=== PATIENT | male | born 1935 | race Caucasian/White ===

== ENCOUNTER 2017-09-02 11:41 | Outpatient (RCR) | payer MEDICARE, SELFPAY ==
[2017-09-02 12:32] LABS: International Normalized Ratio 1.3; Prothrombin Time (Protime)PT. 15.8 SECONDS (11.7-14.9)
== END 2017-09-19 23:59 ==
LOC: LAB 11:41
PROVIDERS: Family Provider Nurse Practitioner; PCP Nurse Practitioner; Visit Provider Internal Medicine Cardiovascular Disease
DX: I48.1 Persistent atrial fibrillation (principal); E11.22 Type 2 diabetes mellitus with diabetic chronic kidney disease; N18.3 Chronic kidney disease, stage 3 (moderate)
CPT/HCPCS: 36415; 80069; 82043; 82570; 85027; 85610

== ENCOUNTER → 2018-02-08 12:21 | Outpatient (CLI) | payer MEDICARE, SELFPAY ==
[2018-02-08 13:09] LABS: Anion Gap 6 (5-15); BUN 42 mg/dL (7-18); BUN/Creat Ratio 22.5 RATIO (10-20); Calcium,Total 8.6 mg/dL (8.5-10.1); Chloride 104 mmol/L (98-107); Creatinine, Serum 1.87 mg/dL (0.70-1.30); EST Glomerular Filtration Rate 37 mL/min (>60); Est Glom Filt Rate - Afr Amer 45 mL/min (>60); Glucose 278 mg/dL (74-106); Potassium 4.6 mmol/L (3.5-5.1); Sodium Level 139 mmol/L (136-145)
== END ==
PROVIDERS: Visit Provider Internal Medicine
DX: E87.5 Hyperkalemia (principal)
CPT/HCPCS: 80048

== ENCOUNTER → 2018-02-15 13:56 | Outpatient (CLI) | payer MEDICARE, SELFPAY ==
--- NOTE | 2018-02-15 14:01 | CDU_ITS ---
Reason For Study: carotid stenosis Rt. Velocities/BP Lt. Velocities/BP Prox CCA 106/18.1 cm/sec. Prox CCA 106/30.6 cm/sec. Mid CCA 128/28.3 cm/sec. Mid CCA 95.1/25.9 cm/sec. Dist CCA 102/21.2 cm/sec. Dist CCA 105/27.5 cm/sec. Prox ICA 165/24.2 cm/sec. Prox ICA 121/44.2 cm/sec. Mid ICA 107/25.5 cm/sec. Mid ICA 118/34.4 cm/sec. Dist ICA 99.2/33.4 cm/sec. Dist ICA 105/30.7 cm/sec. Rt. ICA/CCA = 1.3. Lt. ICA/CCA = 1.3. Prox ECA 161/14.0 cm/sec. Prox ECA 319/34.6 cm/sec. Rt. Vert. 48.7/11.4 cm/sec. Lt. Vert. 49.5/14.9 cm/sec. Right Extracranial There is homogeneous, smooth atherosclerotic plaque noted in the right common carotid artery. There is homogeneous, smooth atherosclerotic plaque noted in the right internal carotid artery. There is homogeneous, smooth atherosclerotic plaque noted in the right external carotid artery. Antegrade flow is noted in the right vertebral artery. Left Extracranial There is heterogeneous, irregular atherosclerotic plaque noted in the left common carotid artery. There is heterogeneous, irregular atherosclerotic plaque noted in the left internal carotid artery. There is heterogeneous, irregular atherosclerotic plaque noted in the left external carotid artery. Antegrade flow is noted in the left vertebral artery. Procedure Carotid Duplex 09276. The exam was diagnostic. Exam performed in department. Interpretation Summary Moderate (50-69%) stenosis right extracranial internal carotid. Mild (<50%) stenosis left extracranial internal carotid. However, acoustic shadowing obscures ryan-scale visualization of a portion of the proximal left internal carotid artery lumen. Therefore, the degree of stenosis may exceed that which is indicated by velocity critera alone, and clinical correation is advised. Flow within the vertebral arteries is antegrade bilaterally. Elevated velocities within the left external carotid artery are suggestive of stenosis. Ordering Physician: Nata Palm Performed By: Roc Herr RVT
== END ==
PROVIDERS: Family Provider Internal Medicine; PCP Internal Medicine; Visit Provider Internal Medicine
DX: I65.23 Occlusion and stenosis of bilateral carotid arteries (principal)
CPT/HCPCS: 93880

== ENCOUNTER → 2018-04-08 16:33 | Outpatient (CLI) | payer MEDICARE, SELFPAY ==
[2018-04-08 17:31] LABS: Anion Gap 5 (5-15); BUN 31 mg/dL (7-18); BUN/Creat Ratio 19.9 RATIO (10-20); Calcium,Total 8.9 mg/dL (8.5-10.1); Chloride 109 mmol/L (98-107); Creatinine, Serum 1.56 mg/dL (0.70-1.30); EST Glomerular Filtration Rate 46 mL/min (>60); Est Glom Filt Rate - Afr Amer 55 mL/min (>60); Glucose 83 mg/dL (74-106); Potassium 4.4 mmol/L (3.5-5.1); Sodium Level 141 mmol/L (136-145)
== END ==
PROVIDERS: Family Provider Internal Medicine; PCP Internal Medicine; Visit Provider Internal Medicine Nephrology
DX: N18.3 Chronic kidney disease, stage 3 (moderate) (principal)
CPT/HCPCS: 36415; 80048

== ENCOUNTER → 2018-12-20 12:44 | Outpatient (CLI) | payer MEDICARE, SELFPAY ==
[2018-12-20 13:19] LABS: CPK Total, Creatine Kinase 143 U/L (39-308)
[2018-12-21 16:07] LABS: Creatine Kinase MB 0 % (0-3); Creatine Kinase MM 96 % (97-100); Creatine Kinase,Total,Serum 144 U/L (24-204); Macro II 0 % (Not Observed)
[2018-12-22 14:11] LABS: Creatine Kinase BB 0 % (0); Macro I 4 % (Not Observed)
== END ==
PROVIDERS: Family Provider Internal Medicine; PCP Internal Medicine; Referring Provider Internal Medicine; Visit Provider Internal Medicine
DX: R06.09 Other forms of dyspnea (principal)
CPT/HCPCS: 82550; 82552; 84484

== ENCOUNTER → 2019-01-05 10:44 | Outpatient (CLI) | payer MEDICARE, SELFPAY ==
--- NOTE | 2019-01-05 10:47 | ECHOD_ITS ---
Reason For Study: ACTIVITY INTOLERANCE Procedure This was a 2D Doppler, Color Flow transthoracic echocardiogram. Exam performed in department. Left Ventricle Normal size and thickness. The estimated ejection fraction is 65 %. Unable to assess diastolic dysfunction due to arrhythmia. No regional wall motion abnormalities noted. Right Ventricle Severely dilated right ventricle. Moderate global right ventricular systolic dysfunction. Atria The left atrium is severely enlarged. The right atrium is severely enlarged. Normal atrial septum. Mitral Valve The mitral valve is structurally normal. No prolapse or stenosis seen. Tricuspid Valve Normal tricuspid valve. Moderately severe (3+) tricuspid valve insufficiency. Right ventricular systolic pressure estimated to be 65 mmHg. Severe pulmonary hypertension. Aortic Valve Trisinus/trileaflet aortic valve. Mild focal aortic valve thickening. Pulmonic Valve Normal pulmonic valve. Great Vessels Normal aortic root. Normal arch. The inferior vena cava is dilated. No collapse of the inferior vena cava. Pericardium/Pleural No pericardial effusion. Medication Definity deferred due to increased PAP. MMode/2D Measurements & Calculations LVIDd: 4.2 cm IVSd: 1.2 cm Ao root diam: 3.5 cm LVIDs: 2.6 cm LVPWd: 1.1 cm RVDd: 4.4 cm FS: 38.8 % LAV(MOD-bp): 80.6 ml LVAd ap4: 26.6 cm2 SV(MOD-sp4): 42.6 ml LAV(MOD-bp) Indexed: 39.0 ml/m2 EDV(MOD-sp4): 83.9 ml LAV(MOD-sp2): 79.7 ml EDV(sp4-el): 85.5 ml LAV(MOD-sp4): 79.0 ml LVAs ap4: 17.6 cm2 ESV(MOD-sp4): 41.3 ml ESV(sp4-el): 41.0 ml EF(MOD-sp4): 50.8 % EF(sp4-el): 52.0 % SV(sp4-el): 44.5 ml LA A4 area: 25.9 cm2 LA dimension(2D): 4.9 cm RA A4 area: 22.0 cm2 Doppler Measurements & Calculations MV E max may: 101.1 cm/sec Ao V2 max: 152.8 cm/sec LV V1 max: 80.6 cm/sec Ao max P.5 mmHg LV V1 max P.6 mmHg PA V2 max: 90.8 cm/sec PI end-d may: 102.9 cm/sec TR max may: 352.2 cm/sec TR max P.8 mmHg Interpretation Summary The estimated ejection fraction is 65 %. Unable to assess diastolic dysfunction due to arrhythmia. Severely dilated right ventricle. Moderate global right ventricular systolic dysfunction. The left atrium is severely enlarged. The right atrium is severely enlarged. Moderately severe (3+) tricuspid valve insufficiency. Right ventricular systolic pressure estimated to be 65 mmHg. Severe pulmonary hypertension. The inferior vena cava is dilated Compared to echo report dated 09/02/2016, LV function has remained the same, but RVSP has increased from 41 to 65 mm Hg. Pt appears to be in atrial fibrillation. Ordering Physician: Nata Palm Referring Physician: Nata Palm Performed By: Alexandra Davis RDCS
== END ==
PROVIDERS: Family Provider Internal Medicine; PCP Internal Medicine; Referring Provider Internal Medicine; Visit Provider Internal Medicine
DX: R68.89 Other general symptoms and signs (principal)
CPT/HCPCS: 93306

== ENCOUNTER 2019-01-12 15:38 | Outpatient (RCR) | payer MEDICARE, SELFPAY ==
[2019-01-12 13:51] VITALS: BMI 29.7
[2019-01-12 16:44] LABS: AST(SGOT) 23 U/L (15-37); Alanine Aminotransfer ALT/SGPT 31 U/L (16-61); Albumin, Serum 3.7 g/dL (3.2-5.0); Alkaline Phosphatase 99 U/L (45-117); Bilirubin, Direct 0.27 mg/dL (0.00-0.30); Cholesterol 125 mg/dL (200); Globulin 4.3 g/dL (2.2-4.2); High Density Lipoprotein 40 mg/dL; Triglycerides 150 mg/dL; Very Low Density Lipoprotein 30 mg/dL (5-40)
[2019-01-12 17:23] LABS: International Normalized Ratio 1.9; Prothrombin Time (Protime)PT. 21.3 SECONDS (11.7-14.9)
== END 2019-01-17 16:00 | disposition home or self-care (01) ==
LOC: LAB 15:38
PROVIDERS: Family Provider Internal Medicine; PCP Internal Medicine; Referring Provider Internal Medicine Cardiovascular Disease; Visit Provider Internal Medicine Cardiovascular Disease
DX: R00.1 Bradycardia, unspecified (principal); E78.5 Hyperlipidemia, unspecified; I25.10 Atherosclerotic heart disease of native coronary artery without angina pectoris; I48.0 Paroxysmal atrial fibrillation; I25.5 Ischemic cardiomyopathy
CPT/HCPCS: 36415; 80061; 80076; 85610

== ENCOUNTER → 2019-01-24 | Outpatient (CLI) | payer MEDICARE, SELFPAY ==
[2019-01-12 13:51] VITALS: BMI 29.7
--- NOTE | 2019-01-24 13:46 | CDU_ITS ---
Reason For Study: TIA Rt. Velocities/BP Lt. Velocities/BP Prox CCA 130.1/22.6 cm/sec. Prox CCA 104.8/22.5 cm/sec. Mid CCA 123.6/16 cm/sec. Mid CCA 109.7/20 cm/sec. Dist CCA 125.8/13.8 cm/sec. Dist CCA 91.2/15.1 cm/sec. Prox ICA 152.1/18.2 cm/sec. Prox ICA 148.5/29.8 cm/sec. Mid ICA 132.3/31.4 cm/sec. Mid ICA 121.1/26.1 cm/sec. Dist ICA 103.8/27 cm/sec. Dist ICA 122.9/20.6 cm/sec. Rt. ICA/CCA = 1.2. Lt. ICA/CCA = 1.4. Prox ECA 182.8/11.6 cm/sec. Prox ECA 416.9/48.2 cm/sec. Rt. Vert. 47.6/10.2 cm/sec. Lt. Vert. 47.6/12.4 cm/sec. Right Extracranial There is homogeneous, smooth atherosclerotic plaque noted in the right common carotid artery. There is homogeneous, smooth atherosclerotic plaque noted in the right internal carotid artery. There is homogeneous, smooth atherosclerotic plaque noted in the right external carotid artery. Antegrade flow is noted in the right vertebral artery. Left Extracranial There is heterogeneous, irregular atherosclerotic plaque noted in the left common carotid artery. There is heterogeneous, irregular atherosclerotic plaque noted in the left internal carotid artery. The atherosclerotic plaque causes acoustic shadowing. There is heterogeneous, irregular atherosclerotic plaque noted in the left external carotid artery. Antegrade flow is noted in the left vertebral artery. Procedure Carotid Duplex [id number]. Exam performed in department. Interpretation Summary Moderate (50-69%) stenosis right extracranial internal carotid. Moderate (50-69%) stenosis left extracranial internal carotid. Flow within the vertebral arteries is antegrade bilaterally. Ordering Physician: Emmett Hopkins Referring Physician: Nata Palm M.D. Performed By: Delia Coombs RVT
== END | disposition home or self-care (01) ==
LOC: CVS 13:44
PROVIDERS: Family Provider Internal Medicine; PCP Internal Medicine; Referring Provider Internal Medicine Cardiovascular Disease; Visit Provider Internal Medicine Cardiovascular Disease
DX: I77.9 Disorder of arteries and arterioles, unspecified (principal); R42 Dizziness and giddiness; R41.0 Disorientation, unspecified
CPT/HCPCS: 93880

== ENCOUNTER → 2019-06-01 12:38 | Outpatient (CLI) | payer MEDICARE, SELFPAY ==
[2019-05-16 14:08] VITALS: BMI 30.4
--- NOTE | 2019-06-01 12:40 | STEWCON_ITS ---
Reason For Study: CHF Stress Results Protocol: Dobutatmine Stress Echo Maximum Predicted HR: 138 bpm Target HR: 117 bpm % Maximum Predicted HR: 102 % DurationHeart Rate Stage (mm:ss) (bpm) BP Dose Comment BASELINE 92 132/68 DILUTED DEFINITY 4 CC USED DSE- 10 MCG 3:37 99 132/8410.00NO SX DSE- 20 MCG 1:36 141 140/8220.00NO SX RECOVERY 98 130/76 NO COMPLAINTS Stress Duration: 5:13 mm:ss Maximum Stress HR: 141 bpm Baseline Echocardiogram Findings The estimated ejection fraction is 65 %. Stress Echo Wall motion Data Resting WM Intermediate WM Stress WM Resting Wall Motion Wall Motion Stress No regional wall motion No regional wall motion abnormalities noted. abnormalities noted. EKG Data Atrial fibrillation with controlled ventricular response. PVCs. The patient was titrated from 10 mcg to a maximum of 20 mcg of dobutamine during the stress. The maximum heart rate attained was 136 beats per minute. This was 96% of maximum predicted heart rate. During dobutamine infusion, there were no ST or T wave changes noted to suggest ischemia. No clinical angina was noted. Doppler Measurements & Calculations TR max may: 301.8 cm/sec TR max P.4 mmHg Interpretation Summary The estimated ejection fraction is 65 %. Normal, adequate, dobutamine echocardiogram. Negative for ischemia by EKG and echocardiographic criteria. No anginal symptoms noted. Mild PVCs noted during infusion and into recovery which is a nonspecific finding. Appropriate blood pressure response to dobutamine. Final LVEF is 75%. Test terminated due to the attainment of target heart rate. Decreased sensitivity due to poor echo windows requiring Definity enhancing agent. No complications. The study was technically difficult. Contrast injection was performed. Ordering Physician: Emmett Hopkins Referring Physician: Emmett Hopkins Performed By: Huong Wen RDCS
== END ==
PROVIDERS: Family Provider Internal Medicine; PCP Internal Medicine; Referring Provider Internal Medicine Cardiovascular Disease; Visit Provider Internal Medicine Cardiovascular Disease
DX: I25.10 Atherosclerotic heart disease of native coronary artery without angina pectoris (principal); R00.1 Bradycardia, unspecified; I25.5 Ischemic cardiomyopathy
CPT/HCPCS: 93017; 93350; J7040; Q9957; A4216; C8928

== ENCOUNTER 2019-07-03 15:01 | Emergency (ER) | payer MEDICARE, SELFPAY ==
[2019-05-16 14:08] VITALS: BMI 30.4
[2019-07-03 15:02] VITALS: BP 122/82; PULSE 49; RESP 16; TEMP 36.4; O2SAT 97; BMI 29.5
--- NOTE | 2019-07-03 15:19 | EKG12_ITS ---
Test Reason : FALL Blood Pressure : / mmHG Vent. Rate : 097 BPM Atrial Rate : 053 BPM P-R Int : 000 ms QRS Dur : 084 ms QT Int : 372 ms P-R-T Axes : 000 018 001 degrees QTc Int : 472 ms Atrial fibrillation with frequent ventricular-paced complexes and with premature ventricular or aberr antly conducted complexes in a Bigeminal pattern Abnormal ECG Confirmed by BÁRBARA ZIMMERMAN ([id number]), manuscript editor DEV MARKS ([id number]) on 07/07/2019 10:24:39 AM Referred By: AAMIR Confirmed By:BÁRBARA ZIMMERMAN
--- NOTE | 2019-07-03 15:21 | ED.DCSUM_ITS ---
History of Present Illness Chief Complaint: Fall Informant: Patient, Family Onset: Days Current Severity: Mild Maximum Severity: Moderate Narrative: Patient presents after having 2 falls in the last 5 days. Last he fell at a local store. He states the floor was wet and he slipped and fell. He had a small abrasion across his nasal bridge. The following day he was out working in his yard. He leaned over to pick something up and fell forward. He reportedly laid on the ground for about an hour and a half until his neighbor was able to help him up. He presents with pain to the left lower ribs and left upper quadrant of his abdomen. He states pain is worse with movement, cough, or deep breath. Patient is also diabetic and is on oral anti-glycemic's. He reports his blood sugars been over 500 last couple days as well. Past Medical History - Allergies and Home Meds Allergies/Adverse Reactions: Allergies No Known Allergies Allergy (Verified 07/03/19 15:02) Primary Care Physician: Nata Palm DO [Primary Care Provider] - Prior records reviewed: Yes Past Medical History: - - Reviewed Surgical History: - - Right carotid endarterectomy, coronary artery stent placement, pacemaker Lives: Alone Smoking Status: Former smoker - Family History Maternal Family History: Family History (Last Reviewed 05/13/19 @ 16:57 by Moira Starr) Mother CAD (coronary artery disease) Father Cancer Sister Multiple sclerosis CVA (cerebral vascular accident) Family History: Reports: - - Abdominal aortic aneurysm Paternal Family History: Family History (Last Reviewed 05/13/19 @ 16:57 by Moira Starr) Mother CAD (coronary artery disease) Father Cancer Sister Multiple sclerosis CVA (cerebral vascular accident) Family History: Reports: Cancer - Lung cancer Review of Systems General: Denies: Chills, Fever Eyes: Denies: Visual changes - bilaterally ENT: Denies: Bilateral ear pain Cardiovascular: Reports: Chest pain - Left chest wall Respiratory: Denies: Dyspnea, Cough Gastrointestinal: Reports: Abdominal pain - Left upper quadrant. Denies: Nausea, Vomiting, Diarrhea Genitourinary: Denies: Dysuria Musculoskeletal: Denies: Neck pain, Back pain Skin: Reports: Abrasions - Nasal bridge Neurological: Denies: Headache Endocrine: Reports: Polyuria Physical Exam Vital Signs/Narrative: Vital Signs Temp Pulse Resp BP Pulse Ox 07/03/19 15:02 97.5 F L 49 L 16 122/82 H 97 Inital Vital Signs reviewed: Yes General: Well nourished, Well developed Head: Normocephalic Eyes: EOMI ENT: Moist mucous membranes, - - Superficial abrasion across nasal bridge. Cardiovascular: Regular rate, Regular rhythm Respiratory: No distress, CTA bilaterally, Chest tenderness - Mild left lower rib tenderness to palpation. No crepitus. Abdomen: Soft, Normal bowel sounds, Tender - Mild left upper quadrant tenderness. No ecchymosis. No guarding or rebound.. Negative for: Guarding, Rebound tenderness Extremities: Nontender Skin: Normal color - Except abrasion as above Neurological: Alert, Oriented x3, Normal Strength, Normal Sensation Psychological: Normal affect Diagnostic/Tx/Re-eval Impressions Ribs w/Chest X-Ray 07/03/19 15:54 IMPRESSION: RIBS: Normal x-ray examination of the ribs. CHEST: No acute cardiopulmonary process. Electronically Signed: Betsy Arriaza MD at 16:28 EDT Tel , Service support , 07/03/19 15:54 Ribs Uni Min 3V w/PA Chest [RAD] Stat Laboratory Results 07/03/19 07/03/19 07/03/19 15:30 15:30 15:30 WBC 7.4 RBC 4.30 L Hgb 13.3 Hct 40.5 MCV 94.2 H MCH 30.9 MCHC 32.8 RDW Std Deviation 48.1 H RDW Coeff of Markie 14.0 Plt Count 102 L MPV 12.4 H Immature Gran % (Auto) 1.100 H Neut % (Auto) 69.1 Lymph % (Auto) 19.2 Sullivan % (Auto) 8.5 Eos % (Auto) 1.6 Baso % (Auto) 0.5 Absolute Neuts (auto) 5.1 Absolute Lymphs (auto) 1.43 Nucleated RBC % 0 PT INR Sodium 134 L Potassium 5.4 H Chloride 102 Carbon Dioxide 26.0 Anion Gap 6 BUN 83 H Creatinine 2.31 H Estim Creat Clear Calc 25.46 Est GFR (MDRD) Af Amer 35 L Est GFR (MDRD) Non-Af 29 L BUN/Creatinine Ratio 35.9 H Glucose 470 H* Calcium 9.1 Total Creatine Kinase 79 Urine Color Urine Clarity Urine pH Ur Specific [place] Urine Protein Urine Glucose (UA) Urine Ketones Urine Occult Blood Urine Nitrite Urine Bilirubin Urine Urobilinogen Ur Leukocyte Esterase Urine RBC Urine WBC Ur Squamous Epith Cells Urine Bacteria Urine Mucus Acetone Level 07/03/19 07/03/19 07/03/19 15:30 15:30 16:50 WBC RBC Hgb Hct MCV MCH MCHC RDW Std Deviation RDW Coeff of Markie Plt Count MPV Immature Gran % (Auto) Neut % (Auto) Lymph % (Auto) Sullivan % (Auto) Eos % (Auto) Baso % (Auto) Absolute Neuts (auto) Absolute Lymphs (auto) Nucleated RBC % PT 15.1 H INR 1.2 Sodium Potassium Chloride Carbon Dioxide Anion Gap BUN Creatinine Estim Creat Clear Calc Est GFR (MDRD) Af Amer Est GFR (MDRD) Non-Af BUN/Creatinine Ratio Glucose Calcium Total Creatine Kinase Urine Color Yellow Urine Clarity Sl. Cloudy Urine pH 6.0 Ur Specific [place] 1.010 Urine Protein Negative Urine Glucose (UA) 1000 H Urine Ketones Negative Urine Occult Blood Negative Urine Nitrite Negative Urine Bilirubin Negative Urine Urobilinogen Normal Ur Leukocyte Esterase 500 H Urine RBC 0 SEEN Urine WBC 10-25 SEEN Ur Squamous Epith Cells 0-5 SEEN Urine Bacteria 0 SEEN Urine Mucus 0 SEEN Acetone Level NEGATIVE - EKG Initial EKG Interpretation: Atrial Fibrillation - A. fib with frequent PVCs, in and out of a bigeminy pattern. - Medical Decision Making Patient was given IV fluids in the emergency room. Blood sugar does return elevated. He does not have evidence of DKA. Rib series do not reveal rib fracture. Test results are discussed with the patient. The medication list that we have in the computer is not able to be confirmed by the patient or family. We have given him subcu insulin at this time, 8 units. Repeat blood sugar will be checked in 1/2-hour. I spoke with Dr. hebert, on-call for Dr. Palm. She advises the patient to take his meds tonight, but called the office to be seen either tomorrow or the following day as he will need to have his eve betes medications adjusted. This has been explained to the family. Social work is meeting with him now to help ensure they have rides to the doctor's appointment. ED Disposition - Plan for ED Patient: Disposition: Home or Assisted Living Diagnosis: Fall, Rib contusion, Hyperglycemia Instructions: FALL, Mechanical, Rib Contusion, ED Diabetic Hyperglycemia Referrals: Nata Palm DO [Primary Care Provider] - 1 Day Additional Instructions: You need to see your doctor tomorrow or Wednesday. Call tomorrow morning to make an appointment - you will need to have your diabetes medications adjusted.
[2019-07-03 15:28] VITALS: BP 135/21; PULSE 79; RESP 17; O2SAT 95
[2019-07-03] MEDS: 0.9% Normal Saline 1,000 ML 150 ML IV (15:44)
[2019-07-03 15:50] LABS: Absolute Lymphocyte Count 1.43 X10^3/uL (0.83-4.51); Absolute Neutrophil Count 5.1 X10^3/uL (2.0-7.7); Basophil# 0.04 X10^3/uL; Basophil% 0.5 % (0-1); Eosinophil# 0.12 X10^3/uL; Eosinophils% 1.6 % (0-5); Hematocrit 40.5 % (40-54); Hemoglobin 13.3 g/dL (13.0-16.5); Lymphocyte # 1.43 X10^3/ul (4.0); Lymphocyte % 19.2 % (19-41); Mean Corp Hgb Conc 32.8 g/dL (32-36); Mean Corpuscular Hgb 30.9 pg (27.0-32.0); Mean Corpuscular Volume 94.2 fL (80-94); Mean Platelet Vol. 12.4 fl (6.2-12.0); Monocyte# 0.63 X10^3/uL; Monocyte% 8.5 % (0-10); NRBC Flagged by Analyzer 0 % (0-5); Neutrophil # 5.13 X10^3/uL (2.7-7.7); Neutrophil % 69.1 % (47-70); Platelet Count 102 K/mm3 (150-450); RBC Distribution Width SD 48.1 fl (35.1-43.9); White Blood Count 7.4 K/mm3 (4.4-11.0)
[2019-07-03 15:54] LABS: International Normalized Ratio 1.2; Prothrombin Time (Protime)PT. 15.1 SECONDS (11.7-14.9)
--- NOTE | 2019-07-03 15:54 | RAD_ITS ---
STUDY: X-RAY - UNILATERAL RIBS ( LEFT ) WITH CHEST REASON FOR EXAM: Male, 83 years old. Left lower anterior/axillary rib pain. Status post fall few days ago. TECHNIQUE - RIBS: 4 view(s) of the ribs. TECHNIQUE - CHEST: Single frontal view of the chest. COMPARISON: August 03, 2017. FINDINGS - RIBS: Normal visualized ribs without a demonstrated fracture. FINDINGS - CHEST: The lungs are clear and expanded. There is no demonstrated pleural abnormality. There is a cardiac pacer device in place partially obscuring anatomic detail of the left hemithorax. Normal size heart. Normal mediastinum and tammie. Normal visualized pulmonary arteries. There is atherosclerotic calcification of the aortic arch with tortuosity. Normal visualized thoracic spine. There is a left humerus prosthesis in place. There is no demonstrated abnormality of the visualized soft tissue structures of the upper abdomen. RAD/Ribs Uni Min 3V w/PA Chest IMPRESSION: RIBS: Normal x-ray examination of the ribs. CHEST: No acute cardiopulmonary process. Electronically Signed: Betsy Arriaza MD at 16:28 EDT Tel , Service support ,
--- NOTE | 2019-07-03 16:06 | ED.RN ---
DR RUTLEDGE NOTIFIED OF GLUCOSE RESULTS
[2019-07-03 16:08] LABS: Anion Gap 6 (5-15); BUN 83 mg/dL (7-18); BUN/Creat Ratio 35.9 RATIO (10-20); Calcium,Total 9.1 mg/dL (8.5-10.1); Chloride 102 mmol/L (98-107); Creatinine, Serum 2.31 mg/dL (0.70-1.30); EST Glomerular Filtration Rate 29 mL/min (>60); Est Glom Filt Rate - Afr Amer 35 mL/min (>60); Estimated Creatinine Clearance 25.46 ml/min; Glucose 470 mg/dL (74-106); Potassium 5.4 mmol/L (3.5-5.1); Sodium Level 134 mmol/L (136-145)
[2019-07-03 16:10] LABS: CPK Total, Creatine Kinase 79 U/L (39-308)
[2019-07-03 16:55] LABS: Bacteria 0 SEEN /hpf (None Seen); Mucous, Urine 0 SEEN /hpf (<or=2+); Red Blood Cells-Urine 0 SEEN /hpf (0-5)
[2019-07-03 17:03] LABS: Color, Urine Yellow (Yellow); Glucose, Dipstick 1000 mg/dl (Normal); Ketone-Dipstick Negative (Negative); Leukocyte Esterase-Dipstick 500 /ul (Negative); Nitrite-Dipstick Negative (Negative); Occult Blood-Urine Negative /ul (Negative); Protein-Dipstick Negative (Negative); Urine Bilirubin Dipstick Negative (Negative); Urine Clarity Sl. Cloudy (Clear); Urine Urobilinogen Normal (Normal)
[2019-07-03 17:11] LABS: Squamous Epithelial Cells - UA 0-5 SEEN /hpf (0-5); White Blood Cells 10-25 SEEN /hpf (0-5)
[2019-07-03 17:28] VITALS: BP 128/42; PULSE 72; RESP 22; O2SAT 96
[2019-07-03] MEDS: Insulin Lispro 100 UNIT/ML INSULN.PEN 8 UNIT SC (17:38)
[2019-07-03 18:20] LABS: Bedside Glucose 366 mg/dL (70-110)
--- NOTE | 2019-07-03 18:31 | CM.ED ---
Social Work Consult: Resources Informant: Dr. Culp Met with patient and patient daughter, Carie in patient room. Patient currently lives alone as patient spouse, Chiara is currently at the [facility] for strengthening prior to discharge back to home. Chi[facility] has been in the [place] [facility]. Chiara assisted patient with medication and medical management. Per Carie patient has been having difficulty with managing medications and has fallen twice in the past week. Carie stating that there is no family in the area and no family is able to assist with patient care. Patient does have a medical alert button at home. Patient stating I am fine. Patient daughter stating to be concerned about patient but often stating to not be willing/able to contact patient pharmacy or patient PCP to set up appointments for renew prescriptions. This psych social worker communicating that setting up a PCP or contacting the pharmacy is a phone call that can be completed from anywhere. Patient daughter stating to not be sure what medications patient is currently on. This psych social worker recommending for patient daughter to become educated on what medications patient does take. Patient stating to still drive but to get lost sometimes. Patient stating to be able to ambulate without a device. This psych social worker wondering if maybe patient should look into option of [facility] transitioning [facility] until patient spouse is able to discharge back to home, patient and patient family do not appear to be open to this idea. This psych social worker did provide them with needed information for self referral as well as educated on transportation options through patient insurance, if this would be needed. Patient daughter stating to be familiar with transportation and case management options through patient insurance. Patient already established with [facility] and receives frozen meals once a week/weekly. This psych social worker broached topic of the [facility] to provide socialization and medication management, patient is agreeable to this. Support and active listening provided. Updated Dr. Culp and medical team of all above information. Referral made to the [facility]. Darrell GREGORY, KACIE
[2019-07-03 18:37] VITALS: BP 144/46; PULSE 71; RESP 24; O2SAT 98
--- NOTE | 2019-07-13 13:23 | CCN.REFER ---
Multiple attempts to patient to set up CCN. At first, he advised us to call back the week of 07/09 as pt states his is home from SNF, and it is a busy week. T/C each day this week w/ no answered and no returned call. Lisa notified via email.
== END 2019-07-03 18:42 | disposition home or self-care (01) ==
PROVIDERS: Emergency Provider Emergency Medicine; Family Provider Internal Medicine; PCP Internal Medicine
DX: S20.212A Contusion of left front wall of thorax, initial encounter (principal); S00.31XA Abrasion of nose, initial encounter; E11.65 Type 2 diabetes mellitus with hyperglycemia; W01.0XXA Fall on same level from slipping, tripping and stumbling without subsequent striking against object, initial encounter; Y93.9 Activity, unspecified; Y92.512 Supermarket, store or market as the place of occurrence of the external cause; I48.91 Unspecified atrial fibrillation; I49.3 Ventricular premature depolarization; Z95.5 Presence of coronary angioplasty implant and graft; Z79.84 Long term (current) use of oral hypoglycemic drugs; Z79.82 Long term (current) use of aspirin; Z79.01 Long term (current) use of anticoagulants; Z79.899 Other long term (current) drug therapy; Z87.891 Personal history of nicotine dependence
CPT/HCPCS: 71101; 80048; 81001; 82009; 82550; 82962; 85025; 85610; 93005; 96360; 96361; 96372; 99283; J7030; A4216

== ENCOUNTER 2019-10-01 14:25 | Inpatient (IN) | payer MEDICARE, SELFPAY ==
[2019-10-01] VITALS (17 sets, daily range): BP systolic 88–174; BP diastolic 36–97; PULSE 73–108; RESP 17–25; TEMP 36.8–37.1; O2SAT 95–98; BMI 30.1; BMI 28.1
--- NOTE | 2019-10-01 14:41 | EKG12_ITS ---
Test Reason : CONFUSION Blood Pressure : / mmHG Vent. Rate : 084 BPM Atrial Rate : 104 BPM P-R Int : 000 ms QRS Dur : 072 ms QT Int : 356 ms P-R-T Axes : 000 024 -22 degrees QTc Int : 420 ms Atrial fibrillation with premature ventricular or aberrantly conducted complexes Abnormal ECG Confirmed by TASHI BAKER, TANNER ([id number]), supervising film or videotape editor KIM ESPINOZA ([id number]) on 10/03/2019 10:05:40 AM Referred By: Moises Sommers Confirmed By:TANNER AKINS MD
--- NOTE | 2019-10-01 14:41 | CT_ITS ---
STUDY: CT BRAIN WITHOUT CONTRAST REASON FOR EXAM: Male, 84 years old with confusion and recent fall. RADIATION DOSAGE (If Supplied By Facility): CTDIvol = ( 44.99 ) mGy, DLP = ( 1490.98 ) mGycm TECHNIQUE: Transaxial CT imaging of the brain was performed without administration of intravenous contrast material. Multiplanar reformations are submitted for interpretation. Individualized dose optimization techniques were used for this CT. COMPARISON: CT of the head dated May 28, 2015. FINDINGS: Normal soft tissue structures. Normal calvarium. There is mild cerebral atrophy with widening of the extra-axial spaces and ventricular dilatation. There are areas of decreased attenuation within the white matter tracts of the supratentorial brain, consistent with microvascular disease changes. There are small punctate calcifications of the basal ganglia which are seen in the aging brain as a normal variant. Normal brainstem. There is mild cerebellar atrophy. There is no intracranial hemorrhage. There is moderate atherosclerotic calcification of intracranial arteries. There is mucosal thickening in the right maxillary sinus. CT/Brain/Head without Contrast IMPRESSION: 1. Chronic involutional changes of the brain. 2. No CT evidence of acute intracranial hemorrhage. Electronically Signed: Erika Kotahri MD at 15:56 EST , Service support ,
[2019-10-01 15:10] LABS: Bacteria 0 SEEN /hpf (None Seen); Mucous, Urine 0 SEEN /hpf (<or=2+)
[2019-10-01 15:17] LABS: Absolute Lymphocyte Count 0.99 X10^3/uL (0.83-4.51); Absolute Neutrophil Count 8.2 X10^3/uL (2.0-7.7); Basophil# 0.04 X10^3/uL; Basophil% 0.4 % (0-1); Eosinophil# 0.01 X10^3/uL; Eosinophils% 0.1 % (0-5); Hematocrit 44.1 % (40-54); Hemoglobin 14.1 g/dL (13.0-16.5); Lymphocyte # 0.99 X10^3/ul (4.0); Lymphocyte % 10.2 % (19-41); Mean Corpuscular Hgb 30.9 pg (27.0-32.0); Mean Corpuscular Volume 96.5 fL (80-94); Mean Platelet Vol. 12.8 fl (6.2-12.0); Monocyte# 0.41 X10^3/uL; Monocyte% 4.2 % (0-10); NRBC Flagged by Analyzer 0 % (0-5); Neutrophil % 84.7 % (47-70); Platelet Count 147 K/mm3 (150-450); RBC Distribution Width CV 13.3 % (11.6-14.6); RBC Distribution Width SD 46.9 fl (35.1-43.9); Red Blood Count 4.57 M/mm3 (4.6-6.2); White Blood Count 9.7 K/mm3 (4.4-11.0)
[2019-10-01 15:21] LABS: Color, Urine Straw (Yellow); Glucose, Dipstick 1000 mg/dl (Normal); Ketone-Dipstick Negative (Negative); Leukocyte Esterase-Dipstick Negative /ul (Negative); Nitrite-Dipstick Negative (Negative); Occult Blood-Urine Negative /ul (Negative); Protein-Dipstick Negative (Negative); Specific Gravity, Urine 1.005 (1.002-1.030); Urine Bilirubin Dipstick Negative (Negative); Urine Clarity Clear (Clear); Urine Urobilinogen Normal (Normal)
[2019-10-01 15:26] LABS: International Normalized Ratio 1.2; Prothrombin Time (Protime)PT. 14.7 SECONDS (11.7-14.9)
--- NOTE | 2019-10-01 15:30 | ED.DCSUM_ITS ---
- ER Visit Summary Date of Service: 10/01/19 Chief Complaint: [Confusion] History of Present Illness: The patient is a 84 M [Zentz to the emergency department complaint of confusion that was noted today by family members. Patient's granddaughter found him today on the floor of his home because he had not gone to see his at the halfway in the last 3 days. He was last seen well yesterday by his daughter. Patient apparently had fallen but does not recall the fall and has been more confused today than usual. Patient normally has some mild confusion and forgetfulness per family. Patient does have history of type 2 diabetes and history of ischemic cardiomyopathy as well as A. fib and hypothyroidism. Patient is on Coumadin. Patient has been complaining of frequent urination and incontinence. He denies any chest pain or abdominal pain. Denies headache. Denies neck pain.] Physical Examination: [HEENT-PERRLA, EOMI. Cranial nerves II through XII grossly intact. TMs clear. Mucous membranes moist. No adenopathy. No external evidence of trauma to his head. No C-spine tenderness on palpation. Cardiovascular-regular rate and rhythm without murmur or ectopy Lungs-clear to auscultation, chest wall stable without crepitus or subcu emphysema Abdomen-normoactive bowel sounds, soft, nontender, no rebound or rigidity, no peritoneal signs. Extremities-intact ?4, normal range of motion, normal pulses, atraumatic] Test Results: [EKG obtained arrival showed atrial fibrillation with a ventricular rate of 84 bpm with no acute ST segment changes. CBC with differential obtained showed a white count 9.7, hemoglobin 14, hematocrit 44, platelets 147.] Chemistries obtained showed a sodium 132, potassium 4.7, chloride 99, CO2 22, glucose 1211, BUN 86, creatinine 2.53. Urinalysis was unremarkable other than it had glucose in it. No signs of infection. Troponin was less than 0.015. CT scan of the brain showed chronic changes. Emergency Department Course and Treatment: [Patient was initially on arrival given a liter mostly fluid bolus. Patient was started on insulin drip.] Treatment Plan: Admit [] Disposition: [Admit] Impression: [Hyperglycemic hyperosmolar nonketotic state] Dehydration Renal insufficiency Confusion This note was generated with Soricim[employer] software. It may contain incorrect words, spelling, and punctuation that were not noted in review of the chart prior to signing ED Disposition - Plan for ED Patient: Referrals: Nata Palm DO [Primary Care Provider] -
[2019-10-01] MEDS: 0.9% Normal Saline 1,000 ML 150 ML IV (15:35)
[2019-10-01 15:38] LABS: Anion Gap 11 (5-15); BUN 86 mg/dL (7-18); Calcium,Total 9.9 mg/dL (8.5-10.1); Chloride 99 mmol/L (98-107); Creatinine, Serum 2.53 mg/dL (0.70-1.30); EST Glomerular Filtration Rate 26 mL/min (>60); Est Glom Filt Rate - Afr Amer 31 mL/min (>60); Estimated Creatinine Clearance 22.84 ml/min; Glucose 1211 mg/dL (74-106); Potassium 5.7 mmol/L (3.5-5.1); Sodium Level 132 mmol/L (136-145)
[2019-10-01 15:39] LABS: Squamous Epithelial Cells - UA 0-5 SEEN /hpf (0-5)
[2019-10-01 15:43] LABS: Red Blood Cells-Urine 0-5 SEEN /hpf (0-5); White Blood Cells 0-5 SEEN /hpf (0-5)
[2019-10-01 15:44] LABS: CPK Total, Creatine Kinase 88 U/L (39-308)
[2019-10-01 15:46] LABS: Lactic Acid 4.3 mmol/L (0.4-1.9)
--- NOTE | 2019-10-01 15:49 | ED.RN ---
lab called to report lactic acid of 4.3. dr. boyce and primary nurse made aware.
[2019-10-01] MEDS: 0.9% Normal Saline 1,000 ML 999 ML IV (16:09)
[2019-10-01 17:30] LABS: Bedside Glucose > 500 mg/dL (70-110)
--- NOTE | 2019-10-01 17:31 | PCM.HP.STD ---
History of Present Illness Date of Admission: 10/01/19 Chief Complaint: confusion The patient is a 84 year old M presents from home being confused. Patient was noted by family to be confused and was found on the floor. Patient is a type II diabetic who receives insulin. Patient's is one who gives him the insulin but his is in a prison facility due to an injury and that she has been giving him insulin when he drives over there. He has not visited her in the past 3 days and therefore has not taken his insulin. Patient was brought to the hospital and had numerous abnormalities: Sodium 132, potassium 5.7, creatinine 2.53, glucose 1211 and a lactic acid of 4.3. Patient was not in DKA and so he received IV fluids and was started on an insulin drip. Family notes that the patient is demented and is not able to negotiate giving himself insulin but is able to drive to see his at the detention as well as going to the store. [] Past Medical History Past Medical History (Chronic Problems): Chronic Problems (Last Reviewed 08/30/19 @ 13:56 by Moira Starr) Patent foramen ovale (Chronic) Seen on echo 05/07/2014 @ [facility] in [place] but NOT noted on subsequent echoes done @ [facility] 04/26/15, 06/29/2015, 09/02/16, or 01/06/2019; not noted on echo done 05/08/15 either. Bilateral carotid artery disease (Chronic) History of cardioversion (Chronic 10/17/15) History of ventricular fibrillation (Chronic 05/08/15) Bilateral enlargement of atria (Chronic) per echo 01/06/2019 Nonrheumatic tricuspid (valve) insufficiency (Chronic) Severe (3+) per echo 01/06/2019 Secondary pulmonary hypertension (Chronic) RVSP increased from 41 mmhg per echo 09/02/16 to 65 mmhg per echo 01/06/2019. 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 Tan Diabetes mellitus type II, controlled (Chronic) Hyperlipidemia (Chronic) Atrial fibrillation (Chronic) Hypothyroidism (Chronic) AICD (automatic cardioverter/defibrillator) present (Chronic) Type II diabetes mellitus (Chronic) Medical History: Medical History (Last Reviewed 10/01/19 @ 17:33 by Moises Sommers DO) Bradycardia (Acute) R00.1 Patent foramen ovale (Chronic) Q21.1 Seen on echo 05/07/2014 @ [facility] in [place] but NOT noted on subsequent echoes done @ [facility] 04/26/15, 06/29/2015, 09/02/16, or 01/06/2019; not noted on echo done 05/08/15 either. Bilateral carotid artery disease (Chronic) I77.9 History of ventricular fibrillation (Chronic) Onset Date: 05/08/15 Z86.79 Bilateral enlargement of atria (Chronic) I51.7 per echo 01/06/2019 Nonrheumatic tricuspid (valve) insufficiency (Chronic) I36.1 Severe (3+) per echo 01/06/2019 Secondary pulmonary hypertension (Chronic) RVSP increased from 41 mmhg per echo 09/02/16 to 65 mmhg per echo 01/06/2019. 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 [Ecotrin] 81 mg PO DAILY@0800 05/04/15 Glimepiride [Amaryl] 4 mg PO BID 05/04/15 Atorvastatin Calcium [Lipitor] 80 mg PO QHS 11/23/16 Omeprazole [Prilosec] 20 mg PO BID 11/23/16 Sitagliptin Phosphate [Januvia] 50 mg PO DAILY 11/23/16 Albuterol IH (ProAir) [Proair Hfa] 1 puff INHALATION Q6H PRN PRN 11/24/16 Budesonide/Formoterol 160/4.5 2 puff INHALATION BID 11/24/16 [Symbicort 160/4.5 Mcg Inhaler (SP)] warfarin 5 mg tablet 5 mg PO QDAY #90 tab 10/26/18 atenolol 25 mg tablet 12.5 mg PO DAILY tab 01/12/19 donepezil 5 mg tablet 5 mg PO DAILY 01/12/19 levothyroxine 88 mcg capsule 88 mcg PO DAILY 01/12/19 losartan 25 mg tablet 25 mg PO DAILY 01/12/19 metformin 500 mg tablet 500 mg PO BID tab 01/12/19 furosemide 20 mg tablet 20 mg PO DAILY #30 tab 05/16/19 potassium chloride 10 mEq 10 meq PO DAILY #30 cap 05/16/19 capsule,extended release Levemir FlexPen units SQ QHS 10/01/19 Surgical History: Surgical History (Last Reviewed 10/01/19 @ 17:33 by Moises Sommers DO) History of cardioversion (Chronic) Onset Date: 10/17/15 Z98.890 History of right-sided carotid endarterectomy (Chronic) Onset Date: 05/16/14 Z98.890 Done @ [place], [place] ICD (implantable cardioverter-defibrillator) in place (Acute) Onset Date: 05/10/15 Z95.810 Implanted 05/10/2015: [employer] Energen Model E140, Serial # [id number] implanted @ by Dr. Selene Myers for prophylactic prevention, EF 20% (EF has since improved to 65%, but pt also has HX of VIB). Stented coronary artery (Chronic) Onset Date: 10/17/15 Z95.5 ELIZABETH to LAD @ hospital 10/17/2015: 2.5 X 28 mm Promus Premier to mid LAD History of appendectomy Z90.49 History of bilateral cataract extraction Onset Date: ~2013 Z98.41, Z98.42 History of hemiarthroplasty of left shoulder Z96.612 History of left heart catheterization Onset Date: 04/27/15 Z98.890 History of total left knee replacement Z96.652 Surgical History: - - Right carotid endarterectomy, coronary artery stent placement, pacemaker Psychiatric History: No pertinent psych hx Smoking Status: Former smoker - *Family History Maternal Family History: Family History (Last Reviewed 10/01/19 @ 17:33 by Moises Sommers DO) Mother CAD (coronary artery disease) Father Cancer Sister Multiple sclerosis CVA (cerebral vascular accident) History Items: - - Abdominal aortic aneurysm Paternal Family History: Family History (Last Reviewed 10/01/19 @ 17:33 by Moises Sommers DO) Mother CAD (coronary artery disease) Father Cancer Sister Multiple sclerosis CVA (cerebral vascular accident) History Items: Cancer - Lung cancer Review of Systems Constitutional: Reports: Anorexia, Weakness. Denies: Chills, Fever Eyes: Denies: Blurred vision, Double vision HEENT: Denies: Head Aches, Sinus Congestion, Sinus Drainage Cardiovascular: Denies: Chest Pain, Palpitations Respiratory: Denies: Cough, Shortness of breath at rest, Sputum production Gastrointestinal: Denies: Abdominal Pain, Nausea, Vomiting Genitourinary: Reports: Frequency. Denies: Dysuria Musculoskeletal: Denies: Joint Pain, Joint Tenderness Skin: Denies: Rash, Wounds Neurological: Reports: Confusion. Denies: Blurred vision, Double vision, Change in Speech, Slurred speech Psychiatric: Denies: Anxiety, Depression Hematologic/ Lymphatic: Denies: Easy Bruising, Easy Bleeding Comment: All review systems are otherwise negative except for as mentioned above and in HPI. VTE Information - Inpt Only VTE Present on Admission: No VTE Mechan Device Prophylaxis: None VTE Pharm Prophylaxis ordered?: Yes - Physical Exam Vitals/I&O's: Vital Signs Temp Pulse Resp BP Pulse Ox 36.9 C 88 18 161/78 H 97 10/01/19 16:28 10/01/19 16:40 10/01/19 16:40 10/01/19 16:40 10/01/19 16:40 Oxygen Delivery Method Room Air Weight: 95.254 kg Body Mass Index (BMI) 30.1 Finger Stick Blood Glucose 366 Intake and Output for Last 24 Hours 09/29/19 09/30/19 10/01/19 23:59 23:59 23:59 Intake Total 1082.5 / 1082.5 Balance 1082.5 / 1082.5 General: Alert, - - Oriented x2. Knows the place knows who the president current president is but states that the year is 1919. HEENT: Atraumatic, PERRLA, Normocephalic, - - No icterus Oral: Dry Mucosa, - - Poor dentition Neck: No Nodes, Trachea Midline Lungs: Clear to auscultation, Normal air movement Cardiovascular: Regular rate, Regular Rhythm, Normal S1, Normal S2, No murmurs Abdomen: Bowel Sounds Present, Soft, Non Tender, Non-Distended, No Hepato-splenomegaly Extremities: No edema, No Calf Tenderness Skin: No rashes, No breakdown Musculoskeletal: No Tenderness to Palpation of Joints or Extremities, No Muscle Wasting Neurological: - - No clonus. Mini cog performed and patient got the 0 out of 5. Psych/Mental Status: Normal Affect, Appropriate Laboratory Results 10/01/19 14:57: WBC 9.7, RBC 4.57 L, Hgb 14.1, Hct 44.1, MCV 96.5 H, MCH 30.9, MCHC 32.0, RDW Std Deviation 46.9 H, RDW Coeff of Markie 13.3, Plt Count 147 L, MPV 12.8 H, Immature Gran % (Auto) 0.400, Neut % (Auto) 84.7 H, Lymph % (Auto) 10.2 L, [place] % (Auto) 4.2, Eos % (Auto) 0.1, Baso % (Auto) 0.4, Absolute Neuts (auto) 8.2 H, Absolute Lymphs (auto) 0.99, Nucleated RBC % 0 10/01/19 14:57: PT 14.7, INR 1.2 10/01/19 14:57: Sodium 132 L, Potassium 5.7 H, Chloride 99, Carbon Dioxide 22.0, Anion Gap 11, BUN 86 H, Creatinine 2.53 H, Estim Creat Clear Calc 22.84, Est GFR (MDRD) Af Amer 31 L, Est GFR (MDRD) Non-Af 26 L, BUN/Creatinine Ratio 34.0 H, Glucose 1211 H*, Calcium 9.9, Troponin I < 0.015 10/01/19 14:57: Lactic Acid 4.3 H* 10/01/19 14:57: Total Creatine Kinase 88 01/12/20 14:57: Urine Color Straw, Urine Clarity Clear, Urine pH 6.0, Ur Specific [place] 1.005, Urine Protein Negative, Urine Glucose (UA) 1000 H, Urine Ketones Negative, Urine Occult Blood Negative, Urine Nitrite Negative, Urine Bilirubin Negative, Urine Urobilinogen Normal, Ur Leukocyte Esterase Negative, Urine RBC 0-5 SEEN, Urine WBC 0-5 SEEN, Ur Squamous Epith Cells 0-5 SEEN, Urine Bacteria 0 SEEN, Urine Mucus 0 SEEN 10/01/19 16:04: POC Glucose > 500 H* Clinical Impression(s) from Imaging Studies Brain CT 10/01/19 14:41 IMPRESSION: 1. Chronic involutional changes of the brain. 2. No CT evidence of acute intracranial hemorrhage. Electronically Signed: Erika Kothari MD at 15:56 EST , Service support , Current Medications Sodium Chloride () 1,000 mls @ 150 mls/hr IV .[id number] [facility] Last Infusion: 10/01/19 16:39 Dose: 150 mls/hr Documented by: Insulin Human Lispro 100 unit/ (Sodium Chloride) 100 mls @ 9.525 mls/hr IV .[id number] YESICA; Protocol Stop: 10/02/19 02:14 Last Admin: 10/01/19 16:17 Dose: 0.1 units/kg/hr, 9.5 mls/hr Documented by: Sodium Chloride () 10 - 40 ml IV UD PRN PRN Reason: SALINE FLUSH Assessment/Plan All Active Problems (Last Reviewed 08/30/19 @ 13:56 by Moira Starr) senior care current use of anticoagulant (Acute) Bradycardia (Acute) ICD (implantable cardioverter-defibrillator) in place (Acute 05/10/15) Confusion (Acute) Influenza A (Acute) Generalized weakness (Acute) Systolic and diastolic CHF, acute on chronic (Acute) Non-ST elevation [place] (NSTEMI) (Resolved) Ventricular fibrillation (Resolved) 1. Hyperosmolar hyperglycemic state Secondary to uncontrolled diabetes which is due to him not receiving his all basal insulin because he was not driving to see his in the prison facility who would give him insulin Patient on insulin drip currently. Once the blood sugar gets between 250 to 300 mcg/dL, then patient can be changed over to subcutaneous insulin at that point in time. Patient is on Levemir at home but the dose is unknown will need to clarify that. Patient's C Januvia, metformin, glimepiride are being held. 2. Acute kidney injury Likely prerenal as patient is clinically dehydrated. IV fluids and reevaluate. 3. Hyperkalemia: Likely secondary to the acute kidney injury. No overt acidosis based on the BMP has anion gap is normal. We will give the patient dose of Kayexalate. 4. Dementia: Complicates care as patient just was not taking his insulin. Despite the fact that the patient drives he is not able to give himself insulin. I did the mini cog assessment from the family and had the patient draw the numbers on an analog clock. Patient had fair grouping of the numbers but missed 10 clock face. Then I had him draw time of 820 for the hands and so then he wrote 20 by the 8 I reminded him to draw the hands of a clock to show a 20 and then again he wrote underneath a 20 that he written before another 820 so he did not draw the hands of the clock. Asked for memory recall with apple table fang, patient was not able to remember any of those. Therefore the patient's mini cog assessment is 0 out of 5. Granted this could be complicated by the patient's underlying distress and but I told the family that he should not drive until he has a further geriatric driving assessment and I reminded several times. They said they are going to take the keys from him. I told him also what can happen when he goes home and he was getting give him his insulin and they did not have a ready answer for that at this time. 5. VTE prophylaxis: Subcu heparin Code Visit Inpatient E&M: 67929 Init Hosp L3
[2019-10-01 17:35] LABS: Bedside Glucose > 500 mg/dL (70-110)
[2019-10-01] MEDS: 0.9% Normal Saline 1,000 ML 250 ML IV ×2 (17:43→21:31)
[2019-10-01 17:54] LABS: Glucose 796 mg/dL (74-106)
[2019-10-01] MEDS: Budesonide Respules 0.5 MG/2 ML AMPUL.NEB. INHALATION (18:45)
[2019-10-01] MEDS: Albuterol 2.5 MG/3 ML VIAL.NEB. INHALATION (18:45)
[2019-10-01 18:55] LABS: Bedside Glucose > 500 mg/dL (70-110)
[2019-10-01 19:09] LABS: Reflex Lactate? Y
[2019-10-01 19:40] LABS: Bedside Glucose 468 mg/dL (70-110)
[2019-10-01 20:41] LABS: Bedside Glucose 428 mg/dL (70-110)
[2019-10-01 21:41] LABS: Bedside Glucose 387 mg/dL (70-110)
[2019-10-01] MEDS: Heparin Injection (Vial) 5,000 UNIT/ML VIAL 5000 UNIT SC (22:28)
[2019-10-01] MEDS: Atorvastatin Calcium 80 MG Tablet PO (22:28)
[2019-10-01] MEDS: Pantoprazole Sodium 20 MG Tablet PO (22:28)
[2019-10-01 22:41] LABS: Bedside Glucose 329 mg/dL (70-110)
[2019-10-01 23:41] LABS: Bedside Glucose 324 mg/dL (70-110)
[2019-10-02] VITALS (17 sets, daily range): BP systolic 98–153; BP diastolic 45–95; PULSE 65–102; RESP 14–24; TEMP 36.6–37.2; O2SAT 95–99
[2019-10-02 00:36] LABS: Bedside Glucose 308 mg/dL (70-110)
[2019-10-02 01:36] LABS: Bedside Glucose 264 mg/dL (70-110)
[2019-10-02 02:36] LABS: Bedside Glucose 287 mg/dL (70-110)
[2019-10-02] MEDS: 0.9% Normal Saline 1,000 ML 75 ML IV ×2 (02:41→14:24)
[2019-10-02] MEDS: Heparin Injection (Vial) 5,000 UNIT/ML VIAL 5000 UNIT SC ×3 (05:07→21:38)
[2019-10-02] MEDS: Levothyroxine 88 MCG Tablet PO (05:07)
[2019-10-02 05:21] LABS: Absolute Lymphocyte Count 1.71 X10^3/uL (0.83-4.51); Absolute Neutrophil Count 6.4 X10^3/uL (2.0-7.7); Basophil# 0.03 X10^3/uL; Basophil% 0.3 % (0-1); Eosinophil# 0.18 X10^3/uL; Hematocrit 36.2 % (40-54); Hemoglobin 12.1 g/dL (13.0-16.5); Lymphocyte # 1.71 X10^3/ul (4.0); Lymphocyte % 19.1 % (19-41); Mean Corp Hgb Conc 33.4 g/dL (32-36); Mean Corpuscular Hgb 30.6 pg (27.0-32.0); Mean Corpuscular Volume 91.4 fL (80-94); Mean Platelet Vol. 12.1 fl (6.2-12.0); Monocyte# 0.62 X10^3/uL; Monocyte% 6.9 % (0-10); NRBC Flagged by Analyzer 0 % (0-5); Neutrophil # 6.37 X10^3/uL (2.7-7.7); Neutrophil % 71.1 % (47-70); Platelet Count 110 K/mm3 (150-450); RBC Distribution Width CV 13.5 % (11.6-14.6); RBC Distribution Width SD 44.7 fl (35.1-43.9); Red Blood Count 3.96 M/mm3 (4.6-6.2)
[2019-10-02 05:53] LABS: Anion Gap 5 (5-15); BUN 57 mg/dL (7-18); BUN/Creat Ratio 34.3 RATIO (10-20); Calcium,Total 8.8 mg/dL (8.5-10.1); Chloride 114 mmol/L (98-107); Creatinine, Serum 1.66 mg/dL (0.70-1.30); EST Glomerular Filtration Rate 42 mL/min (>60); Est Glom Filt Rate - Afr Amer 51 mL/min (>60); Estimated Creatinine Clearance 33.72 ml/min; Glucose 279 mg/dL (74-106); Sodium Level 145 mmol/L (136-145); Thyroid Stim Hormone (TSH) 4.71 uIU/mL (0.358-3.74)
[2019-10-02 09:16] LABS: Vitamin B12 1016 pg/mL (211-911)
--- NOTE | 2019-10-02 10:01 | PCM.PROGNOTE ---
Subjective: Chief complaint: Follow-up after admission for hyperglycemic hyperosmolar nonketotic state, DAVID on CKD and confusion. Patient seen and examined. No acute events overnight. This morning, he is alert and oriented x3. He denies any complaints. He mentioned that he does not take any insulin at home but admitted that he is not taking his medications in the last 3 days. He lives alone at home nowadays because his is at the group home. He is afebrile, blood pressure stable, heart rate stable, pulse ox is 95% on room air. - Physical Exam Vitals/I&O's: Vital Signs Temp Pulse Resp BP Pulse Ox 98.9 F 84 16 128/64 H 95 10/02/19 05:00 10/02/19 08:00 10/02/19 08:00 10/02/19 08:00 10/02/19 08:00 Oxygen Delivery Method Room Air Weight: 194 lb 7.163 oz Body Mass Index (BMI) 28.1 Finger Stick Blood Glucose 264 Intake and Output for Last 24 Hours 09/30/19 10/01/19 10/02/19 23:59 23:59 23:59 Intake Total 2243.92 / 2243.92 1341.17 / 1341.17 Output Total 1525 / 1525 350 / 350 Balance 718.92 / 718.92 991.17 / 991.17 General: Alert, Oriented x3, Cooperative, No apparent distress HEENT: Atraumatic, PERRLA, EOMI, Normocephalic Oral: Moist Mucosa, No Gingival or Mucosal Lesions/ Ulcerations Neck: Supple, No JVD, Negative Carotid Bruits, Trachea Midline, Thyroid Normal Size and Texture Lungs: Clear to auscultation, Normal air movement, No rhonchi, No wheeze, No rales, Diminished Cardiovascular: Normal S1, Normal S2, No murmurs, PMI Normal, Irregular Rate Abdomen: Bowel Sounds Present, Soft, Non Tender, Non-Distended, No Hepato-splenomegaly Extremities: No clubbing, No cyanosis, No edema Skin: No rashes, No breakdown Lymphatic: No Cervical, Supraclavicular, or Inguinal Adenopathy Neurological: Cranial nerves II-XII grossly intact, Motor Exam 5/5 strength throughout Psych/Mental Status: Normal Affect, Appropriate, Alert and oriented to time, place, person, mood and affect Laboratory Results 10/01/19 14:57: WBC 9.7, RBC 4.57 L, Hgb 14.1, Hct 44.1, MCV 96.5 H, MCH 30.9, MCHC 32.0, RDW Std Deviation 46.9 H, RDW Coeff of Markie 13.3, Plt Count 147 L, MPV 12.8 H, Immature Gran % (Auto) 0.400, Neut % (Auto) 84.7 H, Lymph % (Auto) 10.2 L, [place] % (Auto) 4.2, Eos % (Auto) 0.1, Baso % (Auto) 0.4, Absolute Neuts (auto) 8.2 H, Absolute Lymphs (auto) 0.99, Nucleated RBC % 0 10/01/19 14:57: PT 14.7, INR 1.2 10/01/19 14:57: Sodium 132 L, Potassium 5.7 H, Chloride 99, Carbon Dioxide 22.0, Anion Gap 11, BUN 86 H, Creatinine 2.53 H, Estim Creat Clear Calc 22.84, Est GFR (MDRD) Af Amer 31 L, Est GFR (MDRD) Non-Af 26 L, BUN/Creatinine Ratio 34.0 H, Glucose 1211 H*, Calcium 9.9, Troponin I < 0.015 10/01/19 14:57: Lactic Acid 4.3 H* 10/01/19 14:57: Total Creatine Kinase 88 10/01/19 14:57: Urine Color Straw, Urine Clarity Clear, Urine pH 6.0, Ur Specific [place] 1.005, Urine Protein Negative, Urine Glucose (UA) 1000 H, Urine Ketones Negative, Urine Occult Blood Negative, Urine Nitrite Negative, Urine Bilirubin Negative, Urine Urobilinogen Normal, Ur Leukocyte Esterase Negative, Urine RBC 0-5 SEEN, Urine WBC 0-5 SEEN, Ur Squamous Epith Cells 0-5 SEEN, Urine Bacteria 0 SEEN, Urine Mucus 0 SEEN 10/01/19 16:04: POC Glucose > 500 H* 10/01/19 17:23: POC Glucose > 500 H* 10/01/19 17:30: Glucose 796 H* 10/01/19 18:25: POC Glucose > 500 H* 10/01/19 19:29: POC Glucose 468 H* 10/01/19 19:50: Lactic Acid 2.0 10/01/19 20:33: POC Glucose 428 H 10/01/19 21:33: POC Glucose 387 H 10/01/19 22:30: POC Glucose 329 H 10/01/19 23:33: POC Glucose 324 H 10/02/19 00:30: POC Glucose 308 H 10/02/19 01:30: POC Glucose 264 H 10/02/19 02:31: POC Glucose 287 H 10/02/19 04:05: WBC Cancelled, Corrected WBC Cancelled, RBC Cancelled, Hgb Cancelled, Hct Cancelled, MCV Cancelled, MCH Cancelled, MCHC Cancelled, RDW Std Deviation Cancelled, RDW Coeff of Markie Cancelled, Plt Count Cancelled, MPV Cancelled, Immature Gran % (Auto) Cancelled, Neut % (Auto) Cancelled, Lymph % (Auto) Cancelled, [place] % (Auto) Cancelled, Eos % (Auto) Cancelled, Baso % (Auto) Cancelled, Absolute Neuts (auto) Cancelled, Absolute Lymphs (auto) Cancelled, Total Counted Cancelled, Neutrophils % (Manual) Cancelled, Band Neutrophils % Cancelled, Lymphocytes % (Manual) Cancelled, Monocytes % (Manual) Cancelled, Eosinophils % (Manual) Cancelled, Basophils % (Manual) Cancelled, Metamyelocytes % Cancelled, Myelocytes % Cancelled, Promyelocytes % Cancelled, Blast Cells % Cancelled, Plasma Cell % (Manual) Cancelled, Other Cells % Cancelled, Nucleated RBC % Cancelled, Nucleated RBCs/100 WBC Cancelled, Differential Comment Cancelled, Diff Path Review Cancelled, Hypersegmented Neuts Cancelled, Atypical Lymphocytes Cancelled, Reactive Lymphocytes Cancelled, Smudge Cells Cancelled, Toxic Granulation Cancelled, Toxic Vacuolation Cancelled, Dohle Bodies Cancelled, Katy Rods Cancelled, Platelet Estimate Cancelled, Plt Morphology Comment Cancelled, RBC Morphology Cancelled, Polychromasia Cancelled, Hypochromasia Cancelled, Poikilocytosis Cancelled, Basophilic Stippling Cancelled, Anisocytosis Cancelled, Microcytosis Cancelled, Macrocytosis Cancelled, Spherocytes Cancelled, Sickle Cells Cancelled, Target Cells Cancelled, Tear Drop Cells Cancelled, Ovalocytes Cancelled, Stomatocytes Cancelled, [place] Bodies Cancelled, Laurel Cells Cancelled, Bite Cells Cancelled, Crenated Cell Cancelled, Acanthocytes (Spur) Cancelled, Rouleaux Cancelled, Schistocytes Cancelled 10/02/19 04:05: Sodium Cancelled, Potassium Cancelled, Chloride Cancelled, Carbon Dioxide Cancelled, Anion Gap Cancelled, BUN Cancelled, Creatinine Cancelled, Estim Creat Clear Calc Cancelled, Est GFR (MDRD) Af Amer Cancelled, Est GFR (MDRD) Non-Af Cancelled, BUN/Creatinine Ratio Cancelled, Glucose Cancelled, Calcium Cancelled, TSH Cancelled 10/02/19 04:05: Vitamin B12 Cancelled 10/02/19 04:05: RBC Folate Hemolysate Cancelled, RBC Folate Cancelled, Hematocrit Cancelled 10/02/19 05:00: WBC 9.0, RBC 3.96 L, Hgb 12.1 L, Hct 36.2 L, MCV 91.4 D, MCH 30.6, MCHC 33.4, RDW Std Deviation 44.7 H, RDW Coeff of Markie 13.5, Plt Count 110 L, MPV 12.1 H, Immature Gran % (Auto) 0.600, Neut % (Auto) 71.1 H, Lymph % (Auto) 19.1, [place] % (Auto) 6.9, Eos % (Auto) 2.0, Baso % (Auto) 0.3, Absolute Neuts (auto) 6.4, Absolute Lymphs (auto) 1.71, Nucleated RBC % 0 10/02/19 05:00: Sodium 145, Potassium 4.0, Chloride 114 H, Carbon Dioxide 26.0, Anion Gap 5, BUN 57 H, Creatinine 1.66 H, Estim Creat Clear Calc 33.72, Est GFR (MDRD) Af Amer 51 L, Est GFR (MDRD) Non-Af 42 L, BUN/Creatinine Ratio 34.3 H, Glucose 279 H, Calcium 8.8, TSH 4.71 H 10/02/19 05:00: RBC Folate Hemolysate Pending, RBC Folate Pending, Hematocrit Pending 10/02/19 05:00: Vitamin B12 1016 H Clinical Impression(s) from Imaging Studies Brain CT 10/01/19 14:41 IMPRESSION: 1. Chronic involutional changes of the brain. 2. No CT evidence of acute intracranial hemorrhage. Electronically Signed: Erika Kothari MD at 15:56 EST , Service support , Current Medications Acetaminophen (Tylenol) 650 mg PO Q6H PRN PRN PRN Reason: Pain Score 1-3/Temp > 100.7 F Albuterol Sulfate (Ventolin Aerosols) 2.5 mg INHALATION Q6H PRN PRN PRN Reason: SOB/WHEEZE Aspirin (Ecotrin) 81 mg PO DAILY@0800 [facility] Atenolol (Tenormin (Beta Della)) 12.5 mg PO DAILY [facility] Atorvastatin Calcium (Lipitor) 80 mg PO QHS [facility] Last Admin: 10/01/19 22:28 Dose: 80 mg Documented by: Budesonide (Pulmicort Aerosol) 0.5 mg INHALATION Q12H.RT [facility] Last Admin: 10/02/19 07:00 Dose: Not Given Documented by: Dextrose (D50w Syringe) 0 gm IV X1 PRN; Protocol PRN Reason: Hypoglycemia Donepezil HCl (Aricept) 5 mg PO DAILY [facility] Glimepiride (Amaryl) 4 mg PO BID [facility] Glucagon () 1 mg IM .X1 PRN PRN Reason: Hypoglycemia Heparin Sodium (Porcine) (Heparin Na) 5,000 unit SC Q8 [facility] Last Admin: 10/02/19 05:07 Dose: 5,000 unit Documented by: Sodium Chloride () 1,000 mls @ 75 mls/hr IV .[id number] [facility] Last Admin: 10/02/19 02:41 Dose: 75 mls/hr Documented by: Insulin Human Lispro (Humalog Kwikpen (Bkc)) 0 unit SC Q6 [facility]; Protocol Levothyroxine Sodium (Synthroid) 88 mcg PO DAILY@0600 [facility] Last Admin: 10/02/19 05:07 Dose: 88 mcg Documented by: Non-Formulary Medication (Sitagliptin Phosphate) 50 mg PO DAILY [facility] Nutritional Formula (Lactose Free) (Glucerna Shake) 120 ml PO 4X/DAY [facility] Ondansetron HCl (Zofran) 4 mg IV Q8H PRN PRN PRN Reason: NAUSEA/VOMITING Pantoprazole Sodium (Protonix) 20 mg PO BID [facility] Last Admin: 10/01/19 22:28 Dose: 20 mg Documented by: Sodium Chloride () 10 - 40 ml IV UD PRN PRN Reason: SALINE FLUSH Warfarin Sodium (Coumadin (Pbkc)) 5 mg PO DAILY@1700 [facility]; Protocol Last Admin: 10/01/19 18:29 Dose: 5 mg Documented by: Medical Necessity - Tobacco Use Smoking Status: Former smoker Assessment/Plan This is an 84 years old male patient presented to the emergency because of confusion, found in the floor and he was found to have hyperglycemic hyperosmolar nonketotic state with acute kidney injury on top of stage III chronic kidney disease and was found to have uncontrolled type 2 diabetes mellitus. #1 hyperglycemic hyperosmolar nonketotic state: He is off IV insulin drip. Sugar is down to 200s. Serum sodium and potassium normalized. Serum bicarb and anion gap are normal. Patient started eating. Apparently, patient has not been taking his medication as supposed to be. Plan: Accu-Cheks every 6 hours, insulin sliding scale, resume glimepiride and Januvia, keep holding metformin, check hemoglobin A1c, transfer to PCU, PT OT evaluation and treatment, patient may need placement to care home facility. #2 DAVID on stage III chronic kidney disease: Secondary to #1. Baseline creatinine has been around 1.4 to 1.9 mg/dL. Admission creatinine is 2.53, has been on IV fluids, it came down to 1.66 today. Improving, plan to continue IV fluids, repeat BMP tomorrow morning. #3 uncontrolled type 2 diabetes mellitus: Hemoglobin A1c is 9.8. Patient started back on glimepiride and Januvia, Metformin held. Plan as above. #4 CAD status post stents: Stable, no complaints. Continue aspirin, statins, atenolol, Coumadin. #4 chronic atrial fibrillation: Heart rate stable, continue atenolol for rate control, continue Coumadin for anticoagulation, repeat INR tomorrow morning. #6 ischemic cardiomyopathy/chronic systolic CHF: Status post ICD. Clinically stable, compensated. Lasix held, on atenolol. He is on gentle IV fluids for hydration. #7 hypothyroidism: Continue levothyroxine. #8 hyperlipidemia: Continue statins. #9 DVT prophylaxis: On Coumadin, INR is 1.2. SCDs. This note was generated with Dragon dictation software. It may contain incorrect words, spelling, and punctuation that were not noted in checking the note before signing. Code Visit Inpatient E&M: 73642 Subs Hosp L2
[2019-10-02 10:19] LABS: Magnesium 2.3 mg/dL (1.6-2.6)
[2019-10-02] MEDS: Aspirin E.C. 81 MG Tablet PO (10:19)
[2019-10-02] MEDS: Atenolol 25 MG Tablet 12.5 MG PO (10:19)
[2019-10-02] MEDS: Donepezil HCl 5 MG Tablet PO (10:19)
[2019-10-02] MEDS: Pantoprazole Sodium 20 MG Tablet PO ×2 (10:19→21:38)
[2019-10-02 10:28] LABS: Hemoglobin A1c 9.8 % (4.2-6.3)
--- NOTE | 2019-10-02 10:35 | CASEMGMT ---
Addendum entered by Mayank Alicea 10/02/19 14:09: Call received from Gina Langston CM for Directions Home. Call back . Attempted to return call no answer, and investigation clerkinbound call center agent also did not answer. Plan is for SNF on dc. Original Note: RN CM Assessment Presentation: Pt found on floor by family. Type II diabetic with concerns for medication compliance as is in SNF. Confusion hx. Intro role of CM and purpose of RN CM assessment. Pt remains confused re: date, name of pharmacy. Will refer to daughter, pt is agreeable to have me contact her via phone. No family available in room with pt. Addressed possible need for short term SNF stay on dc. Pt is agreeable to this and would want to go to [facility] where his is. Pt states he felt his blood sugar was high because he ate a sugary cereal. Per nursing, family has concerns re: ability to correctly take his medications. -Call to daughter, message left requesting call back to discuss dc planning and possible need for SNF. PT/OT notes pending. PCP: Dr. Nata Palm Specialists: Dr. Hopkins, cardiology, Dr. Clau Whaley, nephrology Preferred Pharmacy: [facility] Insurance: [employer] [place] [facility] Prescription Benefit: yes LNOK: Daughter Ami Living Arrangements: Lives independently at home. Hx of falls. Transportation: pt family. DME: walker, cane, wheelchair per pt. HHC/SNF: none recently SW Referral: possible SNF Placement Patient DC goals: undetermined DC PLAN: undetermined. awaiting PT/OT evaluations. If SNF recommended, pt would like [facility]. If returning home, will need to speak with family re: pt having increased assist at home by family and possible HHC. Kristy MALONEY RN ACM
[2019-10-02] MEDS: A 5 MG PO (14:01)
[2019-10-02] MEDS: Insulin Lispro 100 UNIT/ML INSULN.PEN SC ×2 (14:05→18:25)
[2019-10-02 14:11] LABS: Bedside Glucose 276 mg/dL (70-110)
--- NOTE | 2019-10-02 14:51 | CASEMGMT ---
Social Work Referral from KELSI COATS that pt would like to go to [facility] [place]. Pt currently living at home alone and his is currently in [facility]. Phone call to [facility] at [facility] and they do accept pt insurance and have beds available. Lotus states that pt has told her that she would like pt to come to [facility]. Referral faxed and will await determination. Plan: [facility], pending acceptance and precert KIAN Melissa
[2019-10-02] MEDS: Glimepiride 4 MG Tablet PO (17:17)
[2019-10-02] MEDS: Glucerna Shake 120 ML LIQUID PO ×2 (18:22→21:43)
[2019-10-02 18:26] LABS: Bedside Glucose 267 mg/dL (70-110)
[2019-10-02] MEDS: Albuterol 2.5 MG/3 ML VIAL.NEB. INHALATION (20:34)
[2019-10-02] MEDS: Budesonide Respules 0.5 MG/2 ML AMPUL.NEB. INHALATION (20:34)
[2019-10-02] MEDS: Atorvastatin Calcium 80 MG Tablet PO (21:38)
[2019-10-03] VITALS (12 sets, daily range): BP systolic 127–158; BP diastolic 32–84; PULSE 47–74; RESP 16–18; TEMP 36.5–37.1; O2SAT 95–100
[2019-10-03] MEDS: Insulin Lispro 100 UNIT/ML INSULN.PEN SC ×4 (00:07→21:02)
[2019-10-03 00:50] LABS: Bedside Glucose 356 mg/dL (70-110)
[2019-10-03] MEDS: 0.9% Normal Saline 1,000 ML 75 ML IV ×2 (03:49→16:50)
[2019-10-03 06:07] LABS: Absolute Lymphocyte Count 1.64 X10^3/uL (0.83-4.51); Absolute Neutrophil Count 4.5 X10^3/uL (2.0-7.7); Basophil# 0.03 X10^3/uL; Basophil% 0.4 % (0-1); Eosinophil# 0.33 X10^3/uL; Eosinophils% 4.7 % (0-5); Hematocrit 36.6 % (40-54); Lymphocyte # 1.64 X10^3/ul (4.0); Lymphocyte % 23.3 % (19-41); Mean Corp Hgb Conc 32.8 g/dL (32-36); Mean Corpuscular Hgb 30.5 pg (27.0-32.0); Mean Corpuscular Volume 92.9 fL (80-94); Mean Platelet Vol. 12.3 fl (6.2-12.0); Monocyte# 0.49 X10^3/uL; NRBC Flagged by Analyzer 0 % (0-5); Neutrophil # 4.51 X10^3/uL (2.7-7.7); POSITIVE COUNT YES; Platelet Count 89 K/mm3 (150-450); RBC Distribution Width CV 13.3 % (11.6-14.6); RBC Distribution Width SD 44.9 fl (35.1-43.9); Red Blood Count 3.94 M/mm3 (4.6-6.2)
[2019-10-03 06:09] LABS: Differential Indicated SCAN CRITERIA MET
[2019-10-03 06:10] LABS: International Normalized Ratio 1.5; Prothrombin Time (Protime)PT. 18.1 SECONDS (11.7-14.9)
[2019-10-03] MEDS: Levothyroxine 88 MCG Tablet PO (06:28)
[2019-10-03] MEDS: Heparin Injection (Vial) 5,000 UNIT/ML VIAL 5000 UNIT SC ×2 (06:28→16:01)
[2019-10-03 06:29] LABS: Platelet Estimate MOD DEC (ADEQ)
[2019-10-03 06:35] LABS: Anion Gap 3 (5-15); BUN 48 mg/dL (7-18); Calcium,Total 8.2 mg/dL (8.5-10.1); Chloride 113 mmol/L (98-107); EST Glomerular Filtration Rate 48 mL/min (>60); Est Glom Filt Rate - Afr Amer 58 mL/min (>60); Estimated Creatinine Clearance 37.31 ml/min; Glucose 155 mg/dL (74-106); Potassium 4.1 mmol/L (3.5-5.1); Sodium Level 142 mmol/L (136-145)
[2019-10-03 06:46] LABS: Bedside Glucose 122 mg/dL (70-110)
[2019-10-03] MEDS: Budesonide Respules 0.5 MG/2 ML AMPUL.NEB. INHALATION ×2 (07:13→19:26)
[2019-10-03] MEDS: Albuterol 2.5 MG/3 ML VIAL.NEB. INHALATION (07:13)
[2019-10-03] MEDS: Glimepiride 4 MG Tablet PO ×2 (07:59→16:00)
[2019-10-03] MEDS: Aspirin E.C. 81 MG Tablet PO (07:59)
--- NOTE | 2019-10-03 09:59 | PCM.TXEXTCAR ---
- Diet 10/02/19 01:37 Diet: Cardiac: Calorie-Controlled Is pt able to select menu?: Yes How many daily calories?: 1800 calorie - Suggestions for Active Care Change Position every (hours): 3 Hours to sit in a chair: 2 Times a day to sit in chair: 3 - Therapies Weight Bearing: Weight bearing as tolerated Physical Therapy: Eval and Treat Occupational Therapy: Eval and Treat - Allergies/Procedures Done in Hospital Allergies/Adverse Reactions: Allergies No Known Allergies Allergy (Verified 08/30/19 13:56) - Type of Care/Length of Stay Estimated LOS: Convalescent Care Less Than 30 days Type of Care Needed: Skilled Rehab Potential: Good Prognosis: Good - Additional Orders/Day of Discharge H&P will serve as current which was dated: 10/01/19 Day of Discharge: 10/03/19 - Dietary and Speech Recommendations Dietitian Recommendations/Changes: Will order ONS medpass for increased nutrition if consumed r/t pt progressive wt loss - Follow Up Care Primary Care Physician: Nata Palm DO [Primary Care Provider] - Please follow up with your Primary Care Physician in: 1-2 weeks.
--- NOTE | 2019-10-03 10:10 | CASEMGMT ---
Addendum entered by Christa Cárdenas 10/03/19 10:33: Per [facility] at [facility] pt is living there and is aware and wanting pt to come to [facility]. SW met with pt in room and informed that [facility] is able to accept pt and now waiting on insurance precert. Pt is agreeable and understanding. SW assisted pt in phoning his daughter Ami and she is agreeable to d/c plan. KIAN Melissa Original Note: Social Work Call from the [facility] and they are able to accept pt and precert has been started. Plan: [facility], pending insurance precertification KIAN Melissa
[2019-10-03] MEDS: Pantoprazole Sodium 20 MG Tablet PO ×2 (10:11→21:02)
[2019-10-03] MEDS: A 5 MG PO (10:11)
[2019-10-03] MEDS: Donepezil HCl 5 MG Tablet PO (10:11)
[2019-10-03] MEDS: Atenolol 25 MG Tablet 12.5 MG PO (10:11)
[2019-10-03] MEDS: Glucerna Shake 120 ML LIQUID PO ×3 (10:12→21:01)
[2019-10-03 11:25] LABS: Bedside Glucose 234 mg/dL (70-110)
--- NOTE | 2019-10-03 11:39 | PHA.DC.MR ---
Pharmacy Service has performed discharge medication reconciliation for this patient. Home Medications Aspirin E.C. [Ecotrin] 81 mg PO DAILY@0800 05/04/15 Glimepiride [Amaryl] 4 mg PO BID 05/04/15 Atorvastatin Calcium [Lipitor] 80 mg PO QHS 11/23/16 Omeprazole [Prilosec] 20 mg PO BID 11/23/16 Albuterol IH (ProAir) [Proair Hfa] 2 puff INHALATION Q6H PRN PRN 11/24/16 Budesonide/Formoterol 160/4.5 [Symbicort 160/4.5 Mcg Inhaler (SP)] 2 puff INHALATION BID 11/24/16 atenolol 25 mg tablet 12.5 mg PO DAILY tab 01/12/19 donepezil 5 mg tablet 5 mg PO DAILY 01/12/19 levothyroxine 88 mcg capsule 88 mcg PO DAILY 01/12/19 losartan 25 mg tablet 25 mg PO DAILY 01/12/19 metformin 500 mg tablet 500 mg PO BID tab 01/12/19 furosemide 20 mg tablet 20 mg PO DAILY #30 tab 05/16/19 Insulin Degludec [Tresiba Flextouch U-100] 10 unit SQ DAILY 10/03/19 Sitagliptin Phosphate [Januvia] 100 mg PO DAILY 10/03/19 Vit D3/Folic Acid/B2/B6/B12 [Folgard Tablet] 1 ea PO DAILY 10/03/19 Warfarin Sodium [Coumadin] 2.5 mg PO UD 10/03/19 Warfarin [Coumadin] 5 mg PO [id number] 10/03/19 The patient's discharge medication list was reviewed for discrepancies and discrepancies were resolved.
--- NOTE | 2019-10-03 14:31 | PCM.PROGNOTE ---
Subjective: Chief complaint: Follow-up after admission for hyperglycemic hyperosmolar nonketotic state, DAVID on CKD. Patient seen and examined. No acute events overnight. He denied any complaints. His vital signs are stable. - Physical Exam Vitals/I&O's: Vital Signs Temp Pulse Resp BP Pulse Ox 98.1 F 74 18 158/41 H 100 10/03/19 12:00 10/03/19 12:00 10/03/19 12:00 10/03/19 12:00 10/03/19 12:00 Oxygen Delivery Method Room Air Weight: 199 lb 11.821 oz Body Mass Index (BMI) 28.1 Finger Stick Blood Glucose 264 Intake and Output for Last 24 Hours 10/01/19 10/02/19 10/03/19 23:59 23:59 23:59 Intake Total 2243.92 / 2243.92 2219.92 / 2469.92 1890 / 1890 Output Total 1525 / 1525 550 / 700 350 / 350 Balance 718.92 / 718.92 1669.92 / 1769.92 1540 / 1540 General: Alert, Oriented x3, Cooperative, No apparent distress HEENT: Atraumatic, PERRLA, EOMI, Normocephalic Oral: Moist Mucosa, No Gingival or Mucosal Lesions/ Ulcerations Neck: Supple, No JVD, Negative Carotid Bruits, Trachea Midline, Thyroid Normal Size and Texture Lungs: Clear to auscultation, Normal air movement, No rhonchi, No wheeze, No rales, Diminished Cardiovascular: Regular rate, Regular Rhythm, Normal S1, Normal S2, PMI Normal Abdomen: Bowel Sounds Present, Soft, Non Tender, Non-Distended, No Hepato-splenomegaly Extremities: No clubbing, No cyanosis, No edema Skin: No rashes, No breakdown Lymphatic: No Cervical, Supraclavicular, or Inguinal Adenopathy Neurological: Cranial nerves II-XII grossly intact, Neuro grossly intact Psych/Mental Status: Normal Affect, Appropriate, Alert and oriented to time, place, person, mood and affect Microbiology Past 72 Hours 10/01/19 15:08 Blood Culture (Wb) - Anticubital Left Blood Culture - Preliminary No growth in 48 hours. 10/01/19 14:57 Blood Culture (Wb) - Right Forearm Blood Culture - Preliminary No growth in 48 hours. Laboratory Results 10/02/19 18:19: POC Glucose 267 H 10/03/19 00:06: POC Glucose 356 H 10/03/19 05:11: WBC 7.0, RBC 3.94 L, Hgb 12.0 L, Hct 36.6 L, MCV 92.9, MCH 30.5, MCHC 32.8, RDW Std Deviation 44.9 H, RDW Coeff of Markie 13.3, Plt Count 89 L, MPV 12.3 H, Immature Gran % (Auto) 0.600, Neut % (Auto) 64.0, Lymph % (Auto) 23.3, [place] % (Auto) 7.0, Eos % (Auto) 4.7, Baso % (Auto) 0.4, Absolute Neuts (auto) 4.5, Absolute Lymphs (auto) 1.64, Nucleated RBC % 0, Platelet Estimate MOD 10/03/19 05:11: PT 18.1 H, INR 1.5 10/03/19 05:11: Sodium 142, Potassium 4.1, Chloride 113 H, Carbon Dioxide 26.0, Anion Gap 3 L, BUN 48 H, Creatinine 1.50 H, Estim Creat Clear Calc 37.31, Est GFR (MDRD) Af Amer 58 L, Est GFR (MDRD) Non-Af 48 L, BUN/Creatinine Ratio 32.0 H, Glucose 155 H, Calcium 8.2 L 10/03/19 06:25: POC Glucose 122 H 10/03/19 11:15: POC Glucose 234 H Current Medications Acetaminophen (Tylenol) 650 mg PO Q6H PRN PRN PRN Reason: Pain Score 1-3/Temp > 100.7 F Albuterol Sulfate (Ventolin Aerosols) 2.5 mg INHALATION Q6H PRN PRN PRN Reason: SOB/WHEEZE Last Admin: 10/03/19 07:13 Dose: 2.5 mg Documented by: Aspirin (Ecotrin) 81 mg PO DAILY@0800 [facility] Last Admin: 10/03/19 07:59 Dose: 81 mg Documented by: Atenolol (Tenormin (Beta Della)) 12.5 mg PO DAILY [facility] Last Admin: 10/03/19 10:11 Dose: 12.5 mg Documented by: Atorvastatin Calcium (Lipitor) 80 mg PO QHS [facility] Last Admin: 10/02/19 21:38 Dose: 80 mg Documented by: Budesonide (Pulmicort Aerosol) 0.5 mg INHALATION Q12H.RT [facility] Last Admin: 10/03/19 07:13 Dose: 0.5 mg Documented by: Dextrose (D50w Syringe) 0 gm IV X1 PRN; Protocol PRN Reason: Hypoglycemia Donepezil HCl (Aricept) 5 mg PO DAILY [facility] Last Admin: 10/03/19 10:11 Dose: 5 mg Documented by: [facility] ([facility]l) [facility] Last Admin: 10/03/19 07:59 Dose: 4 mg Documented by: Glucagon () 1 mg IM .X1 PRN PRN Reason: Hypoglycemia Heparin Sodium (Porcine) (Heparin Na) 5,000 unit SC Q8 [facility] Last Admin: 10/03/19 06:28 Dose: 5,000 unit Documented by: Sodium Chloride () 1,000 mls @ 75 mls/hr IV .[id number] [facility] Last Admin: 10/03/19 03:49 Dose: 75 mls/hr Documented by: Insulin Human Lispro (Humalog Kwikpen (Bkc)) 0 unit SC Q6 [facility]; Protocol Last Admin: 10/03/19 11:17 Dose: 3 u Documented by: Levothyroxine Sodium (Synthroid) 88 mcg PO DAILY@0600 [facility] Last Admin: 10/03/19 06:28 Dose: 88 mcg Documented by: Linagliptin (Tradjenta) 5 mg PO DAILY [facility] Last Admin: 10/03/19 10:11 Dose: 5 mg Documented by: Nutritional Formula (Lactose Free) (Glucerna Shake) 120 ml PO 4X/DAY [facility] Last Admin: 10/03/19 10:12 Dose: 120 ml Documented by: Ondansetron HCl (Zofran) 4 mg IV Q8H PRN PRN PRN Reason: NAUSEA/VOMITING Pantoprazole Sodium (Protonix) 20 mg PO BID [facility] Last Admin: 10/03/19 10:11 Dose: 20 mg Documented by: Sodium Chloride () 10 - 40 ml IV UD PRN PRN Reason: SALINE FLUSH Warfarin Sodium (Coumadin (Pbkc)) 5 mg PO DAILY@1700 [facility]; Protocol Last Admin: 10/02/19 17:17 Dose: 5 mg Documented by: Medical Necessity - Tobacco Use Smoking Status: Former smoker Assessment/Plan This is an 84 years old male patient presented to the emergency because of confusion, found in the floor and he was found to have hyperglycemic hyperosmolar nonketotic state with acute kidney injury on top of stage III chronic kidney disease and was found to have uncontrolled type 2 diabetes mellitus. #1 hyperglycemic hyperosmolar nonketotic state: Resolved. He has been off IV insulin drip since yesterday morning. Blood sugar is down to 200s. Serum sodium and potassium normalized. Serum bicarb and anion gap are normal. Apparently, patient has not been taking his medication as supposed to be. He is on glimepiride and sliding scale. Plan: Resume metformin, Tresiba, continue insulin sliding scale, awaiting insurance approval for placement to [facility]pc facility. #2 DAVID on stage III chronic kidney disease: Secondary to #1. Baseline creatinine has been around 1.4 to 1.9 mg/dL. Admission creatinine is 2.53, has been on IV fluids, it came down to 1.50 today. Improving. #3 uncontrolled type 2 diabetes mellitus: Hemoglobin A1c is 9.8. Patient started back on glimepiride and Januvia, plan to resume metformin and Tresiba today. #4 CAD status post stents: Stable, no complaints. Continue aspirin, statins, atenolol, Coumadin. #4 chronic atrial fibrillation: Heart rate stable, continue atenolol for rate control, INR subtherapeutic. Plan to resume Coumadin. #6 ischemic cardiomyopathy/chronic systolic CHF: Status post ICD. Clinically stable, compensated. Resume Lasix, continue atenolol. #7 hypothyroidism: Continue levothyroxine. #8 hyperlipidemia: Continue statins. #9 DVT prophylaxis: On Coumadin, INR is 1.5. SCDs. This note was generated with [employer] dictation software. It may contain incorrect words, spelling, and punctuation that were not noted in checking the note before signing. Code Visit Inpatient E&M: 18332 Subs Hosp L2
[2019-10-03 16:07] LABS: Folate, Hemolysate Test > 620.0 ng/mL (Not Estab.); Folate, RBC (Hct) Test 35.7 % (37.5-51.0)
[2019-10-03] MEDS: metFORMIN HCl 500 MG Tablet PO (16:36)
[2019-10-03 17:01] LABS: Bedside Glucose 275 mg/dL (70-110)
[2019-10-03] MEDS: Atorvastatin Calcium 80 MG Tablet PO (21:02)
[2019-10-03 21:31] LABS: Bedside Glucose 301 mg/dL (70-110)
[2019-10-04 00:16] VITALS: PULSE 82
[2019-10-04 03:16] VITALS: BP 153/57; PULSE 70; RESP 20; TEMP 36.8; O2SAT 99
[2019-10-04 04:11] VITALS: PULSE 72
[2019-10-04] MEDS: 0.9% Normal Saline 1,000 ML 75 ML IV (05:18)
[2019-10-04] MEDS: Levothyroxine 88 MCG Tablet PO (05:19)
[2019-10-04 05:31] LABS: Bedside Glucose 139 mg/dL (70-110)
[2019-10-04 07:00] VITALS: PULSE 67
[2019-10-04 07:35] VITALS: PULSE 47; RESP 16
[2019-10-04] MEDS: Budesonide Respules 0.5 MG/2 ML AMPUL.NEB. INHALATION (07:35)
[2019-10-04] MEDS: metFORMIN HCl 500 MG Tablet PO (08:08)
[2019-10-04] MEDS: Glimepiride 4 MG Tablet PO (08:08)
[2019-10-04] MEDS: Aspirin E.C. 81 MG Tablet PO (08:09)
[2019-10-04] MEDS: Pantoprazole Sodium 20 MG Tablet PO (09:15)
[2019-10-04] MEDS: A 5 MG PO (09:16)
[2019-10-04] MEDS: Losartan Potassium 25 MG Tablet PO (09:16)
[2019-10-04] MEDS: Glucerna Shake 120 ML LIQUID PO (09:16)
[2019-10-04] MEDS: Donepezil HCl 5 MG Tablet PO (09:16)
[2019-10-04] MEDS: Furosemide 20 MG Tablet PO (09:16)
[2019-10-04] MEDS: Atenolol 25 MG Tablet 12.5 MG PO (09:16)
--- NOTE | 2019-10-04 10:00 | CASEMGMT ---
VALERIANO received call from [facility] and they received approval for patient. VALERIANO faxed orders to [facility]. Completed convalescent on HENS. VALERIANO called [facility] and arranged transport for 1030 via van. VALERIANO notified RN, patient, [facility], and medical secretary teacher. Plan: d/c to [facility] under skilled level of care on a convalescent stay. Alissa HESTER MSW
[2019-10-04 10:06] LABS: Bedside Glucose 83 mg/dL (70-110)
--- NOTE | 2019-10-04 10:15 | NURSING ---
attempted to give report to the [facility]. Placed on hold for 5 minutes. Left message to call floor for report.
--- NOTE | 2019-10-04 11:23 | NURSING ---
Received call from the [facility] at this time. Report given and all questions answered.
--- NOTE | 2019-10-04 11:50 | PCM.DC.SUM ---
Discharge Date and Diagnosis Date of Admission: 10/01/19 Date of Discharge: 10/04/19 - Primary Discharge Diagnosis #1 hyperglycemic hyperosmolar nonketotic state. #2 acute kidney injury on top of stage III chronic kidney disease. #3 uncontrolled type 2 diabetes mellitus. #4 physical debility/functional decline. - Secondary Discharge Diagnosis Chronic Problems (Last Updated 10/02/19 @ 10:05 by Edin Nicole MD) Stage III chronic kidney disease (Chronic) Patent foramen ovale (Chronic) Seen on echo 05/07/2014 @ [facility] in [place] but NOT noted on subsequent echoes done @ [facility] 04/26/15, 06/29/2015, 09/02/16, or 01/06/2019; not noted on echo done 05/08/15 either. Bilateral carotid artery disease (Chronic) Nonrheumatic tricuspid (valve) insufficiency (Chronic) Severe (3+) per echo 01/06/2019 Secondary pulmonary hypertension (Chronic) RVSP increased from 41 mmhg per echo 09/02/16 to 65 mmhg per echo 01/06/2019. Ischemic cardiomyopathy (Chronic) Stented coronary artery (Chronic 10/17/15) ELIZABETH to [facility] @ [facility] 10/17/2015: 2.5 X 28 mm Promus Premier to mid LAD Atherosclerotic heart disease of [place] coronary artery without angina pectoris (Chronic) ELIZABETH to [facility] @ [facility] 10/17/2015: 2.5 X 28 mm Promus Premier to mid LAD per Dr. Tan Hyperlipidemia (Chronic) Atrial fibrillation (Chronic) Hypothyroidism (Chronic) AICD (automatic cardioverter/defibrillator) present (Chronic) Type II diabetes mellitus (Chronic) Hospital Course and Treatment Imaging Results: Clinical Impression(s) from Imaging Studies Brain CT 10/01/19 14:41 IMPRESSION: 1. Chronic involutional changes of the brain. 2. No CT evidence of acute intracranial hemorrhage. Electronically Signed: Erika Kothari MD at 15:56 EST , Service support , Operations: None Procedures: EKG Summary of Care Provided: Patient seen and examined on the day of discharge and appeared to be stable to discharge to alf facility. He denied any complaints. His vital signs are stable. The patient is a 84 year old M patient presented to the emergency room because of confusion, change in mental status and he was found to have blood glucose of 1211 upon discharge. He was diagnosed with hyperglycemic hyperosmolar nonketotic state, started on IV insulin drip and he was admitted to intensive care unit. He was found to have lactic acid of 4.3 upon admission which is attributed to severe dehydration and being on the floor for some time. There was no evidence of infection, sepsis or septic shock. Patient currently lives at home alone as his has been [facility]. Reportedly, patient has been driving to the [facility] to visit his and to have his give him his insulin shots. It was not clear that the patient was taking his other diabetic medications appropriately at home. Once started on IV insulin drip, his blood sugar dropped down, his mental status improved and his sugar was down to around 200s to 300s. He was found to have acute kidney injury on top of stage III chronic kidney disease. On admission, creatinine was 2.53 which is up from his baseline which is been around 1.4 to 1.8 mg/dL. With IV fluid therapy, creatinine came down to 1.50 upon discharge. His potassium was 5.7 and sodium was 132 upon admission and after correction of his serum glucose, sodium and potassium returned back to normal. Patient was started back on his home medications including Tresiba glimepiride, metformin and Januvia and his sugar stabilized. CT scan brain done because of the change mental status and showed no acute findings. Patient discharged to alf facility in a stable condition, started back on his previous home medications without any changes including Coumadin, recommended from with PCP in 1 to 2 weeks. - Physical Exam Vitals/I&O's: Vital Signs Temp Pulse Resp BP Pulse Ox 98.3 F 47 L 16 153/57 H 99 10/04/19 03:16 10/04/19 07:35 10/04/19 07:35 10/04/19 03:16 10/04/19 03:16 Oxygen Delivery Method Room Air Weight: 201 lb 4.513 oz Body Mass Index (BMI) 28.1 Finger Stick Blood Glucose 264 Intake and Output for Last 24 Hours 10/02/19 10/03/19 10/04/19 23:59 23:59 23:59 Intake Total 2219.92 / 2469.92 3226.25 / 3226.25 1100 / 1100 Output Total 550 / 700 600 / 600 650 / 650 Balance 1669.92 / 1769.92 2626.25 / 2626.25 450 / 450 General: Alert, Oriented x3, Cooperative, No apparent distress HEENT: Atraumatic, PERRLA, EOMI, Normocephalic Oral: Moist Mucosa, No Gingival or Mucosal Lesions/ Ulcerations Neck: Supple, No JVD, Negative Carotid Bruits, Trachea Midline, Thyroid Normal Size and Texture Lungs: Clear to auscultation, Normal air movement, No rhonchi, No wheeze, No rales, Diminished Cardiovascular: Regular rate, Regular Rhythm, Normal S1, Normal S2, PMI Normal Abdomen: Bowel Sounds Present, Soft, Non Tender, Non-Distended, No Hepato-splenomegaly Extremities: No clubbing, No cyanosis Skin: No rashes, No breakdown Lymphatic: No Cervical, Supraclavicular, or Inguinal Adenopathy Neurological: Cranial nerves II-XII grossly intact, Neuro grossly intact Psych/Mental Status: Normal Affect, Appropriate Microbiology Past 72 Hours 10/01/19 15:08 Blood Culture (Wb) - Anticubital Left Blood Culture - Preliminary No growth in 48 hours. 10/01/19 14:57 Blood Culture (Wb) - Right Forearm Blood Culture - Preliminary No growth in 48 hours. Laboratory Results 10/02/19 05:00: RBC Folate Hemolysate > 620.0, RBC Folate > 1737, Hematocrit 35.7 L 10/03/19 16:48: POC Glucose 275 H 10/03/19 20:54: POC Glucose 301 H 10/04/19 05:17: POC Glucose 139 H 10/04/19 09:11: POC Glucose 83 Home Medications: Medications to take at Discharge Aspirin E.C. [Ecotrin] 81 mg PO DAILY@0800 05/04/15 Glimepiride [Amaryl] 4 mg PO BID 05/04/15 Atorvastatin Calcium [Lipitor] 80 mg PO QHS 11/23/16 Omeprazole [Prilosec] 20 mg PO BID 11/23/16 Albuterol IH (ProAir) [Proair Hfa] 2 puff INHALATION Q6H PRN PRN 11/24/16 Budesonide/Formoterol 160/4.5 [Symbicort 160/4.5 Mcg Inhaler (SP)] 2 puff INHALATION BID 11/24/16 atenolol 25 mg tablet 12.5 mg PO DAILY tab 01/12/19 donepezil 5 mg tablet 5 mg PO DAILY 01/12/19 levothyroxine 88 mcg capsule 88 mcg PO DAILY 01/12/19 losartan 25 mg tablet 25 mg PO DAILY 01/12/19 metformin 500 mg tablet 500 mg PO BID tab 01/12/19 furosemide 20 mg tablet 20 mg PO DAILY #30 tab 05/16/19 Insulin Degludec [Tresiba Flextouch U-100] 10 unit SQ DAILY 10/03/19 Sitagliptin Phosphate [Januvia] 100 mg PO DAILY 10/03/19 Vit D3/Folic Acid/B2/B6/B12 [Folgard Tablet] 1 ea PO DAILY 10/03/19 Warfarin Sodium [Coumadin] 2.5 mg PO UD 10/03/19 Warfarin [Coumadin] 5 mg PO MOTUWETHFR 10/03/19 Primary Care Physician: Nata Palm DO [Primary Care Provider] - Please follow up with your Primary Care Physician in: 1-2 weeks. Disposition: Long-Term facility Minutes spent on discharge:: 32 Patient Condition:: Stable Medical Necessity - Tobacco Use Smoking Status: Former smoker Meaningful Use Info Meaningful Use Diagnoses (Choose all that apply): None applicable Code Visit Inpatient E&M: 87108 Disch Hosp
== END 2019-10-04 10:35 | disposition skilled nursing facility (03) | DRG 638 ==
LOC: ED 15:03 → ICU 16:38 → PCU 10-02 17:45
PROVIDERS: Emergency Provider Emergency Medicine; Family Provider Internal Medicine; PCP Internal Medicine; Visit Provider Hospitalist
DX: E11.00 Type 2 diabetes mellitus with hyperosmolarity without nonketotic hyperglycemic-hyperosmolar coma (NKHHC) (principal); N17.9 Acute kidney failure, unspecified; I48.20 Chronic atrial fibrillation, unspecified; I50.22 Chronic systolic (congestive) heart failure; Q21.1 Atrial septal defect; E87.5 Hyperkalemia; F03.90 Unspecified dementia, unspecified severity, without behavioral disturbance, psychotic disturbance, mood disturbance, and anxiety; N18.3 Chronic kidney disease, stage 3 (moderate); I25.10 Atherosclerotic heart disease of native coronary artery without angina pectoris; I25.5 Ischemic cardiomyopathy; E78.5 Hyperlipidemia, unspecified; E11.65 Type 2 diabetes mellitus with hyperglycemia; E03.9 Hypothyroidism, unspecified; E11.22 Type 2 diabetes mellitus with diabetic chronic kidney disease; I36.1 Nonrheumatic tricuspid (valve) insufficiency; Z79.4 Long term (current) use of insulin; Z95.810 Presence of automatic (implantable) cardiac defibrillator; Z87.891 Personal history of nicotine dependence; Z95.5 Presence of coronary angioplasty implant and graft
CPT/HCPCS: 36415; 51702; 70450; 80048; 81001; 82550; 82607; 82747; 82947; 82962; 83036; 83605; 83735; 84443; 84484; 85014; 85025; 85610; 87040; 93005; 94640; 97162; 97166; 97530; 97802; 99251; 99285; J7030; A4216; G0463

== ENCOUNTER → 2020-04-04 13:52 | Outpatient (CLI) | payer MEDICARE, SELFPAY ==
[2019-10-01 17:14] VITALS: BMI 28.1
[2020-04-04 17:29] LABS: Absolute Lymphocyte Count 1.79 X10^3/uL (0.83-4.51); Absolute Neutrophil Count 4.2 X10^3/uL (2.0-7.7); Basophil# 0.06 X10^3/uL; Basophil% 0.9 % (0-1); Eosinophil# 0.24 X10^3/uL; Eosinophils% 3.5 % (0-5); Hematocrit 39.2 % (40-54); Hemoglobin 12.4 g/dL (13.0-16.5); Lymphocyte # 1.79 X10^3/ul (4.0); Lymphocyte % 25.9 % (19-41); Mean Corp Hgb Conc 31.6 g/dL (32-36); Mean Corpuscular Hgb 29.4 pg (27.0-32.0); Mean Corpuscular Volume 92.9 fL (80-94); Mean Platelet Vol. 12.8 fl (6.2-12.0); Monocyte# 0.58 X10^3/uL; Monocyte% 8.4 % (0-10); NRBC Flagged by Analyzer 0 % (0-5); Neutrophil # 4.18 X10^3/uL (2.7-7.7); Neutrophil % 60.3 % (47-70); Platelet Count 138 K/mm3 (150-450); RBC Distribution Width CV 14.3 % (11.6-14.6); RBC Distribution Width SD 48.4 fl (35.1-43.9); Red Blood Count 4.22 M/mm3 (4.6-6.2); White Blood Count 6.9 K/mm3 (4.4-11.0)
[2020-04-04 17:44] LABS: Color, Urine Yellow (Yellow); Glucose, Dipstick 250 mg/dl (Normal); International Normalized Ratio 1.2; Ketone-Dipstick Negative (Negative); Leukocyte Esterase-Dipstick Negative /ul (Negative); Nitrite-Dipstick Negative (Negative); Occult Blood-Urine Negative /ul (Negative); Protein-Dipstick 15 mg/dl (Negative); Prothrombin Time (Protime)PT. 14.2 SECONDS (11.7-14.9); Specific Gravity, Urine 1.015 (1.002-1.030); Urine Bilirubin Dipstick Negative (Negative); Urine Clarity Clear (Clear); Urine Urobilinogen Normal (Normal)
[2020-04-04 17:53] LABS: Vitamin D,25 Hydroxy 41.4 ng/mL
[2020-04-04 18:15] LABS: ALB/GLOB Ratio 0.8 RATIO (0.9-2.4); AST(SGOT) 19 U/L (15-37); Alanine Aminotransfer ALT/SGPT 26 U/L (16-61); Albumin, Serum 3.3 g/dL (3.2-5.0); Alkaline Phosphatase 76 U/L (45-117); Anion Gap 6 (5-15); BUN 46 mg/dL (7-18); BUN/Creat Ratio 26.9 RATIO (10-20); Bilirubin, Direct 0.22 mg/dL (0.00-0.30); Calcium,Total 8.6 mg/dL (8.5-10.1); Chloride 105 mmol/L (98-107); Cholesterol 181 mg/dL (200); Creatinine, Serum 1.71 mg/dL (0.70-1.30); EST Glomerular Filtration Rate 41 mL/min (>60); Est Glom Filt Rate - Afr Amer 49 mL/min (>60); Globulin 4.2 g/dL (2.2-4.2); Glucose 219 mg/dL (74-106); High Density Lipoprotein 49 mg/dL; Potassium 4.6 mmol/L (3.5-5.1); Protein, Total 7.5 g/dL (6.4-8.2); Sodium Level 136 mmol/L (136-145); Thyroid Stim Hormone (TSH) 4.15 uIU/mL (0.358-3.74); Triglycerides 146 mg/dL; Very Low Density Lipoprotein 29 mg/dL (5-40)
[2020-04-04 18:26] LABS: Microalbumin,Random Urine 52.5 mg/L (NO RANGE EST.); Microalbumin:Creatinine Ratio 83.5 mg/g CRE (<30 mg/g CRE)
== END ==
PROVIDERS: PCP Internal Medicine; Referring Provider Internal Medicine; Visit Provider Internal Medicine
DX: I12.9 Hypertensive chronic kidney disease with stage 1 through stage 4 chronic kidney disease, or unspecified chronic kidney disease (principal); N18.3 Chronic kidney disease, stage 3 (moderate); E55.9 Vitamin D deficiency, unspecified; E78.49 Other hyperlipidemia; Z51.81 Encounter for therapeutic drug level monitoring
CPT/HCPCS: 36415; 80053; 80061; 81002; 82043; 82248; 82306; 82570; 84443; 85025; 85610

== ENCOUNTER → 2020-05-17 16:13 | Outpatient (CLI) | payer MEDICARE, MEDICAID, SELFPAY ==
[2019-10-01 17:14] VITALS: BMI 28.1
--- NOTE | 2020-05-17 16:21 | CT_ITS ---
STUDY: CTA CHEST REASON FOR EXAM: Male, 84 years old. Hemoptysis, PE protocol RADIATION DOSAGE (If Supplied By Facility): CTDIvol = ( 13.69 ) mGy, DLP = ( 556.88 ) mGycm TECHNIQUE: The examination was performed with the intravenous administration of IV 100mL Isovue-370. Post-processing of the angiographic images was performed, with multiplanar reformation and 3D reconstruction. Individualized dose optimization techniques were used for this CT. COMPARISON: Noncontrast CT 06/30/2015. FINDINGS: The heart and pericardium are normal. The aorta is normal in caliber. There is no mediastinal mass or adenopathy. Calcified mediastinal and right hilar lymph nodes consistent with old granulomatous disease. There is no evidence of pulmonary embolus. There is no pleural effusion. There is hazy groundglass opacity in the right upper lobe. Mild centrilobular emphysematous changes are present. Calcified granulomas in the right lower lobe. Multiple dependent stones in the gallbladder. Multiple calcified granulomata in the spleen. There is no osseous abnormality. CT/CTA Chest W/WO Contrast IMPRESSION: 1. No pulmonary embolism or aortic aneurysm. 2. Groundglass opacity in the left upper lobe consistent with pneumonia. Imaging features are atypical or uncommonly reported for Covid pneumonia. 3. Old granulomatous disease. 4. Mild COPD. Electronically Signed: Cindy Vargas MD at 17:26 EDT Tel , Service support ,
[2020-05-17 16:40] LABS: CREATININE FINGERSTICK 1.5 mg/dL (0.70-1.30)
== END ==
PROVIDERS: PCP Internal Medicine; Referring Provider Internal Medicine; Visit Provider Internal Medicine
DX: R04.2 Hemoptysis (principal)
CPT/HCPCS: 71275; Q9967

== ENCOUNTER 2020-05-21 14:11 | Inpatient (IN) | payer MEDICARE, MEDICAID, SELFPAY ==
[2019-10-01 17:14] VITALS: BMI 28.1
[2020-05-21] VITALS (8 sets, daily range): BP systolic 97–139; BP diastolic 50–96; PULSE 35–76; RESP 16–20; TEMP 36.4–37.2; O2SAT 94–100; BMI 29.7; BMI 28.8; BMI 28.9
--- NOTE | 2020-05-21 14:33 | EKG12_ITS ---
Test Reason : COUGH Blood Pressure : / mmHG Vent. Rate : 076 BPM Atrial Rate : 078 BPM P-R Int : 000 ms QRS Dur : 092 ms QT Int : 392 ms P-R-T Axes : 000 040 -60 degrees QTc Int : 441 ms Atrial fibrillation Incomplete right bundle branch block ST & T wave abnormality, consider inferolateral ischemia Abnormal ECG Confirmed by TASHI BAKER, TANNER ([id number]), graphics editor GRACE SIMS ([id number]) on 05/23/2020 10:53:49 AM Referred By: BRITNEY Confirmed By:TANNER AKINS MD
--- NOTE | 2020-05-21 14:35 | ED.VIS.GEN ---
History of Present Illness Chief Complaint: Cough Narrative: This patient is an 84-year-old male who presents with pneumonia. He developed hemoptysis which family describes as spitting up blood last week. He was seen at [place] emergency department on Wednesday. He had an EKG laboratory studies and a chest x-ray. He was told that he had a little fluid on the chest and was started on a diuretic. He then followed up with his primary care physician on Wednesday. He had an outpatient CAT scan of the chest which showed some lobar groundglass infiltrates most consistent with pneumonia. He was started on Levaquin. He has had progressive weakness and was unable to stand on his own today so family was advised to bring him here to the emergency department. No fever. No vomiting or diarrhea. He has had some dyspnea on exertion. Patient denies any pain. Past Medical History - Allergies and Home Meds Allergies/Adverse Reactions: Allergies No Known Allergies Allergy (Verified 05/21/20 14:15) Primary Care Physician: Nata Palm DO [Primary Care Provider] - Past Medical History: - - Diabetes, hypertension, hyperlipidemia, hypothyroidism, dementia, coronary artery disease, chronic kidney disease, AICD Surgical History: - - Right carotid endarterectomy, coronary artery stent placement, pacemaker Smoking Status: Former smoker - Family History Maternal Family History: Family History (Last Reviewed 10/01/19 @ 17:[address] Moises Sommers DO) Mother CAD (coronary artery disease) Father Cancer Sister Multiple sclerosis CVA (cerebral vascular accident) Family History: Reports: - - Abdominal aortic aneurysm Paternal Family History: Family History (Last Reviewed 10/01/19 @ 17:[address] Moises Sommers DO) Mother CAD (coronary artery disease) Father Cancer Sister Multiple sclerosis CVA (cerebral vascular accident) Family History: Reports: Cancer - Lung cancer Review of Systems All systems negative except as indicated General: Denies: Fever ENT: Denies: Bilateral ear pain Cardiovascular: Denies: Chest pain Respiratory: Reports: Dyspnea, Cough, - - Hemoptysis Gastrointestinal: Reports: Nausea. Denies: Abdominal pain, Vomiting, Diarrhea Musculoskeletal: Denies: Myalgias, Arthralgias Skin: Denies: Rash Neurological: Denies: Headache Physical Exam Vital Signs/Narrative: Vital Signs Temp Pulse Resp BP Pulse Ox 05/21/20 14:11 98.9 F 59 L 18 134/96 H 96 Inital Vital Signs reviewed: Yes General: Well nourished Head: Normocephalic Eyes: EOMI ENT: Moist mucous membranes Neck: Supple Cardiovascular: Regular rate Respiratory: No distress. Negative for: Rales, Rhonchi, Wheezing Abdomen: Soft, Nontender Extremities: Nontender Skin: Normal color Neurological: Alert Psychological: Normal affect Diagnostic/Tx/Re-eval Impressions Chest X-Ray 05/21/20 16:35 IMPRESSION: No focal consolidation identified. Groundglass opacities better appreciated on recent chest CT. Electronically Signed: Warner Nikaanthony, at 17:04 EDT Tel , Service support , 05/21/20 16:35 Chest 1 View (Portable) [RAD] Stat Laboratory Results 05/21/20 05/21/20 05/21/20 15:15 15:15 15:15 WBC 7.7 RBC 4.61 Hgb 14.2 Hct 42.7 MCV 92.6 MCH 30.8 MCHC 33.3 RDW Std Deviation 50.7 H RDW Coeff of Markie 15.3 H Plt Count 123 L MPV 12.6 H Immature Gran % (Auto) 0.900 Neut % (Auto) 71.5 H Lymph % (Auto) 18.9 L [place] % (Auto) 6.9 Eos % (Auto) 1.4 Baso % (Auto) 0.4 Absolute Neuts (auto) 5.5 Absolute Lymphs (auto) 1.45 Nucleated RBC % 0 Sodium 137 Potassium 4.6 Chloride 102 Carbon Dioxide 28.0 Anion Gap 7 BUN 71 H Creatinine 2.33 H Estim Creat Clear Calc 24.02 Est GFR (MDRD) Af Amer 35 L Est GFR (MDRD) Non-Af 29 L BUN/Creatinine Ratio 30.5 H Glucose 550 H* Lactic Acid 2.3 H* Calcium 9.4 - Medical Decision Making EKG shows a irregular narrow complex rhythm at a rate of 76. There is an incomplete right bundle branch block. Chest x-ray does not show any obvious infiltrate. Labs are notable for elevation of creatinine at 2.3 up from 1.7 on previous labs. Lactic acid mildly elevated 2.3. Patient is also hyperglycemic with a glucose of 550. He was given subcutaneous insulin and IV fluids. Patient was discussed with the hospitalist who agrees to admit. ED Disposition - Plan for ED Patient: Disposition: Acute Care Hospital [facility] Diagnosis: Acute renal insufficiency, Hyperglycemia, Community acquired pneumonia Referrals: Nata Palm DO [Primary Care Provider] -
[2020-05-21] MEDS: 0.9% Normal Saline 1,000 ML 1000 ML IV (15:14)
[2020-05-21 15:42] LABS: Absolute Lymphocyte Count 1.45 X10^3/uL (0.83-4.51); Absolute Neutrophil Count 5.5 X10^3/uL (2.0-7.7); Basophil# 0.03 X10^3/uL; Basophil% 0.4 % (0-1); Eosinophil# 0.11 X10^3/uL; Eosinophils% 1.4 % (0-5); Hematocrit 42.7 % (40-54); Hemoglobin 14.2 g/dL (13.0-16.5); Lymphocyte # 1.45 X10^3/ul (4.0); Lymphocyte % 18.9 % (19-41); Mean Corp Hgb Conc 33.3 g/dL (32-36); Mean Corpuscular Hgb 30.8 pg (27.0-32.0); Mean Corpuscular Volume 92.6 fL (80-94); Mean Platelet Vol. 12.6 fl (6.2-12.0); Monocyte# 0.53 X10^3/uL; Monocyte% 6.9 % (0-10); NRBC Flagged by Analyzer 0 % (0-5); Neutrophil # 5.47 X10^3/uL (2.7-7.7); Neutrophil % 71.5 % (47-70); Platelet Count 123 K/mm3 (150-450); RBC Distribution Width CV 15.3 % (11.6-14.6); RBC Distribution Width SD 50.7 fl (35.1-43.9); Red Blood Count 4.61 M/mm3 (4.6-6.2); White Blood Count 7.7 K/mm3 (4.4-11.0)
[2020-05-21 16:12] LABS: Anion Gap 7 (5-15); BUN 71 mg/dL (7-18); BUN/Creat Ratio 30.5 RATIO (10-20); Calcium,Total 9.4 mg/dL (8.5-10.1); Chloride 102 mmol/L (98-107); Creatinine, Serum 2.33 mg/dL (0.70-1.30); EST Glomerular Filtration Rate 29 mL/min (>60); Est Glom Filt Rate - Afr Amer 35 mL/min (>60); Estimated Creatinine Clearance 24.02 ml/min; Glucose 550 mg/dL (74-106); Potassium 4.6 mmol/L (3.5-5.1); Sodium Level 137 mmol/L (136-145)
[2020-05-21 16:28] LABS: Lactic Acid 2.3 mmol/L (0.4-1.9)
[2020-05-21] MEDS: 0.9% Normal Saline 1,000 ML 999 ML IV (16:32)
[2020-05-21] MEDS: Insulin Lispro 100 UNIT/ML INSULN.PEN 14 UNIT SC (16:32)
--- NOTE | 2020-05-21 16:35 | RAD_ITS ---
STUDY: X-RAY CHEST REASON FOR EXAM: Male, 84 years old. PNEUMONIA DIAGNOSED ON WEDNESDAY, INCREASED WEAKNESS AND COUGHING UP BLOOD TECHNIQUE: Single frontal view of the chest. COMPARISON: 05/17/2020. FINDINGS: Left cardiac device. Cardiac silhouette enlarged. Pulmonary vascularity unremarkable. Aorta unremarkable. No focal airspace consolidation. No pleural effusions. Small calcified nodular densities right base. Upper abdomen unremarkable. Osseous structures intact. No pneumothorax. RAD/Chest 1 View (Portable) IMPRESSION: No focal consolidation identified. Groundglass opacities better appreciated on recent chest CT. Electronically Signed: Warner Lima, at 17:04 EDT Tel , Service support ,
[2020-05-21 17:16] LABS: Bedside Glucose 445 mg/dL (70-110)
--- NOTE | 2020-05-21 17:20 | NURSING ---
MED SURG CAP, DEHYDRATION, HYPERGLYCEMIA ANABELLE
[2020-05-21 17:33] LABS: International Normalized Ratio 3.2
--- NOTE | 2020-05-21 17:50 | NURSING ---
305 TIFFANY POST OP INTRA ABD INFECTION
--- NOTE | 2020-05-21 18:05 | PCM.HP.STD ---
Problem List (1) Acute renal insufficiency Status: Acute (2) Hyperglycemia Status: Acute (3) Community acquired pneumonia Status: Acute (4) Stage III chronic kidney disease Status: Chronic (5) Patent foramen ovale Status: Chronic Comment: Seen on echo 05/07/2014 @ [facility] in [place] but NOT noted on subsequent echoes done @ [facility] 04/26/15, 06/29/2015, 09/02/16, or 01/06/2019; not noted on echo done 05/08/15 either. (6) Bilateral carotid artery disease Status: Chronic (7) Nonrheumatic tricuspid (valve) insufficiency Status: Chronic Comment: Severe (3+) per echo 01/06/2019 (8) Secondary pulmonary hypertension Status: Chronic Comment: RVSP increased from 41 mmhg per echo 09/02/16 to 65 mmhg per echo 01/06/2019. (9) Ischemic cardiomyopathy Status: Chronic (10) Stented coronary artery Status: Chronic Comment: ELIZABETH to [facility] @ [facility] 10/17/2015: 2.5 X 28 mm Promus Premier to mid LAD (11) Atherosclerotic heart disease of alutiiq coronary artery without angina pectoris Status: Chronic Qualifiers: [place] vs. transplanted heart: alutiiq heart Qualified Code(s): I25.10 - Atherosclerotic heart disease of alutiiq coronary artery without angina pectoris Comment: ELIZABETH to [facility] @ [facility] 10/17/2015: 2.5 X 28 mm Promus Premier to mid LAD per Dr. Tan (12) Hyperlipidemia Status: Chronic Qualifiers: Hyperlipidemia type: pure hypercholesterolemia Qualified Code(s): E78.00 - Pure hypercholesterolemia, unspecified; E78.0 - Pure hypercholesterolemia (13) Atrial fibrillation Status: Chronic Qualifiers: Atrial fibrillation type: paroxysmal Qualified Code(s): I48.0 - Paroxysmal atrial fibrillation (14) Hypothyroidism Status: Chronic (15) AICD (automatic cardioverter/defibrillator) present Status: Chronic (16) Type II diabetes mellitus Status: Chronic History of Present Illness Date of Admission: 05/21/20 Chief Complaint: weakness The patient is a 84 year old M who has not been feeling well for a week. Went to an outside hospital and was evaluated and deemed not that nothing was wrong at the time. Went to his primary care doctor who ordered a CAT scan that showed infiltrate in the left upper lung and the patient was started on levofloxacin. Patient has been having hemoptysis during this time. The hemoptysis consists of blood-tinged sputum but without globs but there was some noted chunks earlier. Patient presents today with a worsening of his kidney function and the hospital service was contacted for admission. Patient had been on levofloxacin for this pneumonia as of late last week. [] Past Medical History Past Medical History (Chronic Problems): Chronic Problems (Last Updated 10/02/19 @ 10:[address] Edin Nicole MD) Stage III chronic kidney disease (Chronic) Patent foramen ovale (Chronic) Seen on echo 05/07/2014 @ [facility] in [place] but NOT noted on subsequent echoes done @ [facility] 04/26/15, 06/29/2015, 09/02/16, or 01/06/2019; not noted on echo done 05/08/15 either. Bilateral carotid artery disease (Chronic) Nonrheumatic tricuspid (valve) insufficiency (Chronic) Severe (3+) per echo 01/06/2019 Secondary pulmonary hypertension (Chronic) RVSP increased from 41 mmhg per echo 09/02/16 to 65 mmhg per echo 01/06/2019. Ischemic cardiomyopathy (Chronic) Stented coronary artery (Chronic 10/17/15) ELIZABETH to LAD @ [facility] 10/17/2015: 2.5 X 28 mm Promus Premier to mid LAD Atherosclerotic heart disease of alutiiq coronary artery without angina pectoris (Chronic) ELIZABETH to LAD @ [facility] 10/17/2015: 2.5 X 28 mm Promus Premier to mid LAD per Dr. Tan Hyperlipidemia (Chronic) Atrial fibrillation (Chronic) Hypothyroidism (Chronic) AICD (automatic cardioverter/defibrillator) present (Chronic) Type II diabetes mellitus (Chronic) Medical History: Medical History (Last Reviewed 05/21/20 @ 18:[address] Moises Sommers, DO) Patent foramen ovale (Chronic) Q21.1 Seen on echo 05/07/2014 @ [facility] in [place] but NOT noted on subsequent echoes done @ [facility] 04/26/15, 06/29/2015, 09/02/16, or 01/06/2019; not noted on echo done 05/08/15 either. Bilateral carotid artery disease (Chronic) I77.9 Nonrheumatic tricuspid (valve) insufficiency (Chronic) I36.1 Severe (3+) per echo 01/06/2019 Secondary pulmonary hypertension (Chronic) RVSP increased from 41 mmhg per echo 09/02/16 to 65 mmhg per echo 01/06/2019. Ischemic cardiomyopathy (Chronic) I25.5 Atherosclerotic heart disease of alutiiq coronary artery without angina pectoris (Chronic) I25.10 ELIZABETH to LAD @ [facility] 10/17/2015: 2.5 X 28 mm Promus Premier to mid LAD per Dr. Tan Hyperlipidemia (Chronic) E78.5 Atrial fibrillation (Chronic) I48.91 Hypothyroidism (Chronic) E03.9 Bilateral enlargement of atria (Inactive) I51.7 per echo 01/06/2019 History of ventricular fibrillation (Inactive) Onset Date: 05/08/15 Z86.79 Allergies No Known Allergies Allergy (Verified 05/21/20 14:15) Home Medications: Ambulatory Orders Medication Instructions Recorded Aspirin E.C. [Ecotrin] 81 mg PO DAILY@1700 05/04/15 Atorvastatin Calcium [Lipitor] 80 mg PO QHS 11/23/16 Omeprazole [Prilosec] 20 mg PO BID 11/23/16 Budesonide/Formoterol 160/4.5 2 puff INHALATION BID 11/24/16 [Symbicort 160/4.5 Mcg Inhaler (SP)] atenolol 25 mg tablet 25 mg PO DAILY tab 01/12/19 metformin 500 mg tablet 500 mg PO BID tab 01/12/19 Warfarin [Coumadin] 5 mg PO DAILY 10/03/19 Furosemide [Lasix] 20 mg PO DAILY 05/21/20 Insulin Detemir [Levemir FlexPen] 16 units SUBCUT QHS 05/21/20 Levofloxacin 250 mg PO DAILY 05/21/20 Levofloxacin 500 mg PO X1 05/21/20 Levothyroxine Sodium [Synthroid] 88 mcg PO DAILY 05/21/20 Losartan Potassium [Cozaar] 50 mg PO DAILY 05/21/20 Memantine HCl [Memantine HCl ER] 28 mg PO DAILY 05/21/20 Semaglutide [Ozempic] 0.5 mg SUBCUT FR 05/21/20 Surgical History: Surgical History (Last Reviewed 05/21/20 @ 18:[address] Moises Sommers DO) Stented coronary artery (Chronic) Onset Date: 10/17/15 Z95.5 ELIZABETH to LAD @ [facility] 10/17/2015: 2.5 X 28 mm Promus Premier to mid LAD History of appendectomy Z90.49 History of bilateral cataract extraction Onset Date: ~2013 Z98.41, Z98.42 History of hemiarthroplasty of left shoulder Z96.612 History of left heart catheterization Onset Date: 04/27/15 Z98.890 History of total left knee replacement Z96.652 History of cardioversion (Inactive) Onset Date: 10/17/15 Z98.890 History of right-sided carotid endarterectomy (Inactive) Onset Date: 05/16/14 Z98.890 Done @ [place], [place] Surgical History: - - Right carotid endarterectomy, coronary artery stent placement, pacemaker Psychiatric History: No pertinent psych hx Smoking Status: Former smoker - *Family History Maternal Family History: Family History (Last Reviewed 05/21/20 @ 18:[address] Moises Sommers DO) Mother CAD (coronary artery disease) Father Cancer Sister Multiple sclerosis CVA (cerebral vascular accident) History Items: - - Abdominal aortic aneurysm Paternal Family History: Family History (Last Reviewed 05/21/20 @ 18:[address] Moises Sommers DO) Mother CAD (coronary artery disease) Father Cancer Sister Multiple sclerosis CVA (cerebral vascular accident) History Items: Cancer - Lung cancer Review of Systems Constitutional: Reports: Malaise, Weakness. Denies: Anorexia, Chills, Fever Eyes: Denies: Blurred vision, Double vision HEENT: Denies: Head Aches, Sinus Congestion, Sinus Drainage Cardiovascular: Denies: Chest Pain, Palpitations Respiratory: Reports: Cough, Hemoptysis. Denies: Shortness of Breath Gastrointestinal: Denies: Abdominal Pain, Nausea, Vomiting Genitourinary: Denies: Dysuria Musculoskeletal: Denies: Joint Pain, Joint Tenderness Skin: Denies: Rash, Wounds Neurological: Denies: Numbness, Tingling, Focal weakness Psychiatric: Denies: Anxiety, Depression Hematologic/ Lymphatic: Denies: Easy Bruising, Easy Bleeding, Hx of blood clot Comment: All review of systems were negative except as mentioned above in the history of present illness and the other review of systems. VTE Information - Inpt Only VTE Present on Admission: No VTE Mechan Device Prophylaxis: None VTE Pharm Prophylaxis ordered?: No Reason prophylaxis not ordered:: Medical Contraindication Patient Problems: Active and Suspected Problems (Last Updated 10/02/19 @ 10:[address] Edin Nicole MD) Acute renal insufficiency (Acute) Hyperglycemia (Acute) Community acquired pneumonia (Acute) - Physical Exam Vitals/I&O's: Vital Signs Temp Pulse Resp BP Pulse Ox 36.5 C L 76 16 139/56 H 98 05/21/20 17:32 05/21/20 17:32 05/21/20 17:32 05/21/20 17:32 05/21/20 17:32 Oxygen Delivery Method Room Air Weight: 91.172 kg Body Mass Index (BMI) 29.7 Finger Stick Blood Glucose 445 General: Alert, Cooperative, No apparent distress HEENT: Atraumatic, Normocephalic, - - No scleral icterus. No blood on the nasal septum. Slight maxillary sinus tenderness Oral: Moist Mucosa, No Gingival or Mucosal Lesions/ Ulcerations Neck: No Nodes, Thyroid Normal Size and Texture Lungs: Clear to auscultation, Normal air movement, No rhonchi, No wheeze, No rales Cardiovascular: Regular rate, Regular Rhythm, Normal S1, Normal S2, No murmurs Abdomen: Bowel Sounds Present, Soft, Non Tender, Non-Distended, No Hepato-splenomegaly Extremities: No edema, No Calf Tenderness Skin: No rashes, No breakdown Musculoskeletal: No Tenderness to Palpation of Joints or Extremities, No Muscle Wasting Neurological: Sensory exam intact to light touch and pain, - - No clonus Psych/Mental Status: Normal Affect, Appropriate Laboratory Results 05/21/20 14:50: COVID-19 (SUSANA) Negative 05/21/20 15:15: WBC 7.7, RBC 4.61, Hgb 14.2, Hct 42.7, MCV 92.6, MCH 30.8, MCHC 33.3, RDW Std Deviation 50.7 H, RDW Coeff of Markie 15.3 H, Plt Count 123 L, MPV 12.6 H, Immature Gran % (Auto) 0.900, Neut % (Auto) 71.5 H, Lymph % (Auto) 18.9 L, [place] % (Auto) 6.9, Eos % (Auto) 1.4, Baso % (Auto) 0.4, Absolute Neuts (auto) 5.5, Absolute Lymphs (auto) 1.45, Nucleated RBC % 0 05/21/20 15:15: Sodium 137, Potassium 4.6, Chloride 102, Carbon Dioxide 28.0, Anion Gap 7, BUN 71 H, Creatinine 2.33 H, Estim Creat Clear Calc 24.02, Est GFR (MDRD) Af Amer 35 L, Est GFR (MDRD) Non-Af 29 L, BUN/Creatinine Ratio 30.5 H, Glucose 550 H*, Calcium 9.4 05/21/20 15:15: Lactic Acid 2.3 H* 05/21/20 16:45: PT 32.0 H, INR 3.2 05/21/20 17:09: POC Glucose 445 H Chest x-ray from today reviewed and showed no acute process. CTA of the chest from the showed left upper lobe groundglass opacity. Assessment/Plan All Active Problems (Last Updated 10/02/19 @ 10:[address] Edin Nicole MD) Acute renal insufficiency (Acute) Hyperglycemia (Acute) Community acquired pneumonia (Acute) 1. Acute kidney injury: Suspect prerenal but cannot rule out this being exacerbated due to the levofloxacin. Will hold agents that could worsen it, including furosemide, metformin, losartan. Will give some IV fluids and reevaluate. 2. Suspected pneumococcal pneumonia: Patient is not septic though lactic acid was elevated. As above cannot rule out that the levofloxacin was contributed to his renal dysfunction. I will switch him over to Pipracil on/tazobactam and vancomycin. Check urine studies for Legionella and Streptococcus. Check sputum culture. Pulmonary toilet. 3. Hemoptysis: Likely secondary to the pneumonia. But also exacerbated by his warfarin and aspirin use. We will hold off on the warfarin as well as aspirin for now. May need to consider pulmonary consultation if does persist but it seems as though the blood that he is producing is scant from the description of his daughter. 4. Diabetes mellitus type 2: Uncontrolled. Continue with his home medications, with the exception of the metformin. Add sliding scale insulin. Monitor. 5. A. fib: Warfarin being held due to being slightly elevated as well as see hemoptysis. 6. VTE prophylaxis: Not indicated as patient is already anticoagulated. 7. Advanced care planning: Discussed with the patient. Patient wishes to be full CODE STATUS. Case discussed with the patient's daughter at bedside. Inpatient E&M: 76386 Init Hosp L3
[2020-05-21] MEDS: 0.9% Normal Saline 1,000 ML 150 ML IV (18:36)
[2020-05-21] MEDS: Albuterol 2.5 MG/3 ML VIAL.NEB. INHALATION (19:32)
[2020-05-21 19:33] LABS: Reflex Lactate? Y
[2020-05-21] MEDS: Budesonide Respules 0.5 MG/2 ML AMPUL.NEB. INHALATION (19:33)
--- NOTE | 2020-05-21 19:51 | EKG12_ITS ---
Test Reason : GAYE Blood Pressure : / mmHG Vent. Rate : 073 BPM Atrial Rate : 073 BPM P-R Int : 000 ms QRS Dur : 112 ms QT Int : 434 ms P-R-T Axes : 000 004 215 degrees QTc Int : 478 ms Accelerated Junctional rhythm with frequent ventricular-paced complexes and Premature supraventricula r complexes in a pattern of bigeminy Left ventricular hypertrophy with repolarization abnormality Abnormal ECG When compared with ECG of 21-MAY-2020 14:54, MANUAL COMPARISON REQUIRED, DATA IS UNCONFIRMED Confirmed by DIANE BAKER, FIORELLA ([id number]), website/blog editor ZHANG LIU ([id number]) on 06/03/2020 2:47:07 PM Referred By: DR ALFONSO Confirmed By:MANNY CONTRERAS MD
[2020-05-21 20:01] LABS: Bedside Glucose 280 mg/dL (70-110)
--- NOTE | 2020-05-21 20:11 | PCM.PN.BLA ---
Progress Note With routine vitals patient's pulse was in the 30s; asymptomatic. EKG showed accelerated junctional with rate in 73; and PVcs. Put on telemetry. STROKE Vital Signs/Narrative: Vital Signs Temp Pulse Resp BP Pulse Ox 05/21/20 20:06 97.9 F 35 L 16 97/75 98 05/21/20 19:34 95 05/21/20 18:39 97.6 F L 60 20 H 123/51 H 94 05/21/20 17:32 97.7 F L 76 16 139/56 H 98 05/21/20 16:23 128/75 H 100
[2020-05-21 20:43] LABS: Lactic Acid 1.4 mmol/L (0.4-1.9)
[2020-05-21 21:47] LABS: Magnesium 1.8 mg/dL (1.6-2.6)
[2020-05-21] MEDS: Atorvastatin Calcium 80 MG Tablet PO (22:24)
[2020-05-21] MEDS: Pantoprazole Sodium 20 MG Tablet PO (22:24)
[2020-05-21] MEDS: guaiFENesin 600 MG Tablet PO (22:24)
--- NOTE | 2020-05-21 23:56 | PCM.RX.CS ---
Consult Pharmacy has been consulted to manage selected antiobiotic: Vancomycin Type of Consult: New start Suspected Infection: Pneumonia Labs: Sodium 137 mmol/L (136-145) 05/21/20 15:15 Potassium 4.6 mmol/L (3.5-5.1) 05/21/20 15:15 Chloride 102 mmol/L (98-107) 05/21/20 15:15 Carbon Dioxide 28.0 mmol/L (21.0-32.0) 05/21/20 15:15 Anion Gap 7 (5-15) 05/21/20 15:15 BUN 71 mg/dL (7-18) H 05/21/20 15:15 Creatinine 2.33 mg/dL (0.70-1.30) H 05/21/20 15:15 Est GFR (MDRD) Af Amer 35 mL/min (>60) L 05/21/20 15:15 Est GFR (MDRD) Non-Af 29 mL/min (>60) L 05/21/20 15:15 BUN/Creatinine Ratio 30.5 RATIO (10-20) H 05/21/20 15:15 Glucose 550 mg/dL (74-106) H* 05/21/20 15:15 Goal Trough: 15-20 mcg/mL Pharmacy Plan for Drug Dosing: Pharmacy Service will continue to monitor and adjust dosing as required. Medications Vancomycin HCl 1,250 mg/ (Sodium Chloride) 275 mls @ 167 mls/hr IV X1 ONE Stop: 05/22/20 00:38 Last Admin: 05/21/20 23:22 Dose: 167 mls/hr Documented by: Vancomycin HCl (Vancomycin) 1,000 mg in 200 mls @ 200 mls/hr IV Q24H [facility] Follow-Up Labs: Trough Vancomycin Labs to be done on [date and time ordered]: 05/23 @ [id number]
[2020-05-22] VITALS (16 sets, daily range): BP systolic 105–127; BP diastolic 43–56; PULSE 48–84; RESP 14–18; TEMP 36.4–37.1; O2SAT 95–98
[2020-05-22] MEDS: Levothyroxine 88 MCG Tablet PO (04:53)
[2020-05-22 06:22] LABS: Absolute Lymphocyte Count 1.96 X10^3/uL (0.83-4.51); Absolute Neutrophil Count 5.9 X10^3/uL (2.0-7.7); Basophil# 0.05 X10^3/uL; Basophil% 0.6 % (0-1); Eosinophil# 0.17 X10^3/uL; Hematocrit 41.9 % (40-54); Hemoglobin 13.6 g/dL (13.0-16.5); Lymphocyte # 1.96 X10^3/ul (4.0); Lymphocyte % 22.5 % (19-41); Mean Corp Hgb Conc 32.5 g/dL (32-36); Mean Corpuscular Hgb 28.9 pg (27.0-32.0); Mean Corpuscular Volume 89.1 fL (80-94); Mean Platelet Vol. 12.8 fl (6.2-12.0); Monocyte# 0.57 X10^3/uL; Monocyte% 6.6 % (0-10); NRBC Flagged by Analyzer 0 % (0-5); Neutrophil # 5.88 X10^3/uL (2.7-7.7); Neutrophil % 67.5 % (47-70); Platelet Count 147 K/mm3 (150-450); RBC Distribution Width SD 49.6 fl (35.1-43.9); White Blood Count 8.7 K/mm3 (4.4-11.0)
[2020-05-22 06:28] LABS: International Normalized Ratio 3.3; Prothrombin Time (Protime)PT. 33.4 SECONDS (11.7-14.9)
[2020-05-22 06:46] LABS: Anion Gap 6 (5-15); BUN 64 mg/dL (7-18); BUN/Creat Ratio 34.8 RATIO (10-20); Calcium,Total 8.6 mg/dL (8.5-10.1); Chloride 111 mmol/L (98-107); Creatinine, Serum 1.84 mg/dL (0.70-1.30); EST Glomerular Filtration Rate 38 mL/min (>60); Est Glom Filt Rate - Afr Amer 45 mL/min (>60); Estimated Creatinine Clearance 30.42 ml/min; Glucose 226 mg/dL (74-106); Potassium 3.8 mmol/L (3.5-5.1); Sodium Level 141 mmol/L (136-145)
[2020-05-22] MEDS: Insulin Lispro 100 UNIT/ML INSULN.PEN SC ×4 (06:52→20:42)
[2020-05-22 07:01] LABS: Bedside Glucose 209 mg/dL (70-110)
[2020-05-22] MEDS: Budesonide Respules 0.5 MG/2 ML AMPUL.NEB. INHALATION ×2 (07:05→19:06)
[2020-05-22] MEDS: Albuterol 2.5 MG/3 ML VIAL.NEB. INHALATION ×3 (07:05→19:05)
[2020-05-22] MEDS: Memantine Hydrochloride 10 MG Tablet PO ×2 (08:16→20:42)
[2020-05-22] MEDS: guaiFENesin 600 MG Tablet PO ×2 (08:16→20:42)
[2020-05-22] MEDS: Atenolol 25 MG Tablet PO (08:16)
[2020-05-22] MEDS: Pantoprazole Sodium 20 MG Tablet PO ×2 (08:18→20:49)
--- NOTE | 2020-05-22 09:54 | PCM.PN.HOSP ---
Patient Problems: Active and Suspected Problems (Last Reviewed 05/21/20 @ 18:[address] Moises Sommers, DO) Acute renal insufficiency (Acute) Hyperglycemia (Acute) Community acquired pneumonia (Acute) Subjective: Feels well, breathing okay. No issues overnight. Vitals/I&O's: Vital Signs Temp Pulse Resp BP Pulse Ox 98.7 F 73 18 127/43 H 95 05/22/20 08:20 05/22/20 08:20 05/22/20 08:20 05/22/20 08:20 05/22/20 08:20 Oxygen Delivery Method Room Air Weight: 195 lb 8 oz Body Mass Index (BMI) 28.8 Finger Stick Blood Glucose 445 Intake and Output for Last 24 Hours 05/20/20 05/21/20 05/22/20 23:59 23:59 23:59 Intake Total 2127.5 / 2327.5 725 / 725 Output Total 450 / 450 350 / 350 Balance 1677.5 / 1877.5 375 / 375 General: Alert, Oriented x3, Cooperative, No apparent distress HEENT: Atraumatic, PERRLA, EOMI, Normocephalic Oral: Moist Mucosa Neck: Supple, No JVD Lungs: Clear to auscultation, Normal air movement, No rhonchi, No wheeze, No rales, Diminished Cardiovascular: Regular rate, Regular Rhythm, Normal S1, Normal S2, No murmurs Abdomen: Soft, Non Tender, Non-Distended, No Hepato-splenomegaly Extremities: No edema, Capillary Refill Less than 3 Seconds Neurological: Neuro grossly intact, Sensory exam intact to light touch and pain Psych/Mental Status: Normal Affect, Appropriate Microbiology Past 72 Hours 05/21/20 23:10 Sputum, Expectorated/Coughed Gram Stain - Preliminary Laboratory Results 05/21/20 14:50: COVID-19 (SUSANA) Negative 05/21/20 15:15: WBC 7.7, RBC 4.61, Hgb 14.2, Hct 42.7, MCV 92.6, MCH 30.8, MCHC 33.3, RDW Std Deviation 50.7 H, RDW Coeff of Markie 15.3 H, Plt Count 123 L, MPV 12.6 H, Immature Gran % (Auto) 0.900, Neut % (Auto) 71.5 H, Lymph % (Auto) 18.9 L, [place] % (Auto) 6.9, Eos % (Auto) 1.4, Baso % (Auto) 0.4, Absolute Neuts (auto) 5.5, Absolute Lymphs (auto) 1.45, Nucleated RBC % 0 05/21/20 15:15: Sodium 137, Potassium 4.6, Chloride 102, Carbon Dioxide 28.0, Anion Gap 7, BUN 71 H, Creatinine 2.33 H, Estim Creat Clear Calc 24.02, Est GFR (MDRD) Af Amer 35 L, Est GFR (MDRD) Non-Af 29 L, BUN/Creatinine Ratio 30.5 H, Glucose 550 H*, Calcium 9.4 05/21/20 15:15: Lactic Acid 2.3 H* 05/21/20 15:15: Magnesium 1.8 05/21/20 16:45: PT 32.0 H, INR 3.2 05/21/20 17:09: POC Glucose 445 H 05/21/20 19:51: POC Glucose 280 H 05/21/20 20:05: Lactic Acid 1.4 05/22/20 06:04: WBC 8.7, RBC 4.70, Hgb 13.6, Hct 41.9, MCV 89.1, MCH 28.9, MCHC 32.5, RDW Std Deviation 49.6 H, RDW Coeff of Markie 15.0 H, Plt Count 147 L, MPV 12.8 H, Immature Gran % (Auto) 0.800, Neut % (Auto) 67.5, Lymph % (Auto) 22.5, [place] % (Auto) 6.6, Eos % (Auto) 2.0, Baso % (Auto) 0.6, Absolute Neuts (auto) 5.9, Absolute Lymphs (auto) 1.96, Nucleated RBC % 0 05/22/20 06:04: PT 33.4 H, INR 3.3 05/22/20 06:04: Sodium 141, Potassium 3.8, Chloride 111 H, Carbon Dioxide 24.0, Anion Gap 6, BUN 64 H, Creatinine 1.84 H, Estim Creat Clear Calc 30.42, Est GFR (MDRD) Af Amer 45 L, Est GFR (MDRD) Non-Af 38 L, BUN/Creatinine Ratio 34.8 H, Glucose 226 H, Calcium 8.6 05/22/20 06:51: POC Glucose 209 H Current Medications Acetaminophen (Tylenol) 650 mg PO Q6H PRN PRN PRN Reason: Pain Score 1-10/Temp > 100.7 F Albuterol Sulfate (Ventolin Aerosols) 2.5 mg INHALATION Q6HWA.RT [facility] Last Admin: 05/22/20 07:05 Dose: 2.5 mg Documented by: Atenolol (Tenormin (Beta Della)) 25 mg PO DAILY [facility] Last Admin: 05/22/20 08:16 Dose: 25 mg Documented by: Atorvastatin Calcium (Lipitor) 80 mg PO QHS [facility] Last Admin: 05/21/20 22:24 Dose: 80 mg Documented by: Budesonide (Pulmicort Aerosol) 0.5 mg INHALATION Q12H.RT [facility] Last Admin: 05/22/20 07:05 Dose: 0.5 mg Documented by: Dextrose (D50w Syringe) 0 gm IV X1 PRN; Protocol PRN Reason: Hypoglycemia Glucagon () 1 mg IM .X1 PRN PRN Reason: Hypoglycemia Guaifenesin (Robitussin) 20 ml PO Q4H PRN PRN PRN Reason: COUGH Guaifenesin (Mucinex) 600 mg PO BID [facility] Last Admin: 05/22/20 08:16 Dose: 600 mg Documented by: Piperacillin Sod/Tazobactam (Sod 3.375 gm/ Sodium Chloride) 50 mls @ 12.5 mls/hr IV Q8 [facility] Stop: 05/28/20 22:01 Last Infusion: 05/22/20 09:02 Dose: Infused Documented by: Vancomycin IV Pharmacy to Dose (1 ea/ Sodium Chloride) 500 mls @ 250 mls/hr IV X1 PRN; Protocol PRN Reason: Rx to Dose Vancomycin HCl (Vancomycin) 1,000 mg in 200 mls @ 200 mls/hr IV Q24H [facility] Insulin Glargine (Lantus (Bkc)) 16 units SC QHS [facility] Last Admin: 05/21/20 22:23 Dose: 16 u Documented by: Insulin Human Lispro (Humalog Kwikpen (Bkc)) 0 unit SC TIDAC [facility]; Protocol Last Admin: 05/22/20 06:52 Dose: 3 u Documented by: Levothyroxine Sodium (Synthroid) 88 mcg PO DAILY@0600 [facility] Last Admin: 05/22/20 04:53 Dose: 88 mcg Documented by: Memantine (Namenda) 10 mg PO BID [facility] Last Admin: 05/22/20 08:16 Dose: 10 mg Documented by: Ondansetron HCl (Zofran) 4 mg IV Q8H PRN PRN PRN Reason: NAUSEA/VOMITING Pantoprazole Sodium (Protonix) 20 mg PO BID [facility] Last Admin: 05/22/20 08:18 Dose: 20 mg Documented by: STROKE Vital Signs/Narrative: Vital Signs Temp Pulse Resp BP Pulse Ox 05/22/20 08:20 98.7 F 73 18 127/43 H 95 05/22/20 07:13 71 05/22/20 07:05 68 16 97 Medical Necessity - Tobacco Use Smoking Status: Former smoker Assessment/Plan All Active Problems (Last Reviewed 05/21/20 @ 18:[address] Moises Sommers, DO) Acute renal insufficiency (Acute) Hyperglycemia (Acute) Community acquired pneumonia (Acute) 1. Community-acquired pneumonia likely pneumococcal/DAVID on CKD 3/hemoptysis -Not consistent secondary to the pneumonia, exacerbated by his warfarin and aspirin use -Continue to monitor INR which is supratherapeutic at 3.3 -We will DC the vancomycin, continue with Zosyn and will add azithromycin -Creatinine is back to baseline at 1.84 -Had been on Levaquin and this could possibly be the cause of his worsening renal function 2. A. fib/HTN/HLD/CAD status post stent -Blood pressure stable -We will continue with atenolol, will hold Lasix and losartan -Hold Coumadin, currently supratherapeutic, will also hold his aspirin for now 3. IDDM 2 -We will continue with his home insulin, will also add sliding scale insulin -Accu-Cheks AC at bedtime -Hold his home oral hypoglycemics 4. COPD -Stable, not in exacerbation -Continue with his home inhalers 5. GERD -Stable -Continue with PPI DVT: Supratherapeutic INR Inpatient E&M: 92261 [facility] Hosp L2
--- NOTE | 2020-05-22 11:32 | CASEMGMT ---
RN CM Assessment Note Intro role of CM to patient in room. He is sitting in chair, awake and able to participate in assessment. Patient verified demographics and PCP. Slower to respond, patient admits to being forgetful. He states his a few months ago, and his daughter's have been staying with him 12/04. RN CM asked if daughter Ami could be contacted and patient is agreeable. Patient became emotional when speaking about his . emotional support given, allowing patient to verbalize difficulties with being alone even though his daughters are there. RN CM offered to have elementary ell teacher speak with patient but he declined for cm to contact elementary ell teacher for now. Conversation was abbreviated due to medications needing to be given, but RN CM let patient know CM was available if he would like to speak more. -Call to daughterAmi. She states she is HCPOA and she or one of her sister's stay with the patient. Patient has dementia and is forgetful. Ami states they help with showering, putting clothes out, preparing meals or MOW's is delivering, hand stamper. Presentation: hemoptysis. Diagnosis: Acute kidney injury, possible pneumonia- pt was on Levofloxacin PCP: Dr. Palm Insurance: [facility] Preferred Pharmacy: [facility] Pres[facility] Benefit: LNOK: Daughter Ami Ronquillo, HCPOA Living Arrangements: Lives in two story home with first floor set up. Daughters assist with any household and personal care needs. Tranportation: family drives DME: [employer]ator, however patient does not use HHC: none SNF: none Patient DC Goals: Home on discharge, resume Meals on Wheels DC Plan: Home on discharge. CM available for discharge planning coordination. Contact CM for any concerns/needs that may arise. Kristy PERRINN RN ACM
[2020-05-22 11:35] LABS: Bedside Glucose 355 mg/dL (70-110)
[2020-05-22 17:11] LABS: Bedside Glucose 350 mg/dL (70-110)
[2020-05-22] MEDS: Atorvastatin Calcium 80 MG Tablet PO (20:42)
[2020-05-22 21:21] LABS: Bedside Glucose 277 mg/dL (70-110)
[2020-05-23] VITALS (8 sets, daily range): BP systolic 134–140; BP diastolic 44–98; PULSE 60–76; RESP 15–16; TEMP 36.4–36.6; O2SAT 95–98
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
[2020-05-23] MEDS: Levothyroxine 88 MCG Tablet PO (05:17)
[2020-05-23 05:54] LABS: Absolute Lymphocyte Count 1.89 X10^3/uL (0.83-4.51); Absolute Neutrophil Count 4.1 X10^3/uL (2.0-7.7); Basophil# 0.04 X10^3/uL; Basophil% 0.6 % (0-1); Eosinophil# 0.17 X10^3/uL; Eosinophils% 2.5 % (0-5); Hematocrit 40.9 % (40-54); Hemoglobin 12.9 g/dL (13.0-16.5); Lymphocyte # 1.89 X10^3/ul (4.0); Mean Corp Hgb Conc 31.5 g/dL (32-36); Mean Corpuscular Hgb 28.7 pg (27.0-32.0); Mean Corpuscular Volume 91.1 fL (80-94); Mean Platelet Vol. 12.7 fl (6.2-12.0); Monocyte# 0.51 X10^3/uL; Monocyte% 7.6 % (0-10); NRBC Flagged by Analyzer 0 % (0-5); Neutrophil # 4.05 X10^3/uL (2.7-7.7); Neutrophil % 60.1 % (47-70); Platelet Count 117 K/mm3 (150-450); RBC Distribution Width SD 50.6 fl (35.1-43.9); Red Blood Count 4.49 M/mm3 (4.6-6.2); White Blood Count 6.7 K/mm3 (4.4-11.0)
[2020-05-23 06:04] LABS: International Normalized Ratio 3.1; Prothrombin Time (Protime)PT. 31.9 SECONDS (11.7-14.9)
[2020-05-23 06:18] LABS: Anion Gap 6 (5-15); BUN 54 mg/dL (7-18); BUN/Creat Ratio 27.8 RATIO (10-20); Calcium,Total 8.1 mg/dL (8.5-10.1); Chloride 108 mmol/L (98-107); Creatinine, Serum 1.94 mg/dL (0.70-1.30); EST Glomerular Filtration Rate 35 mL/min (>60); Est Glom Filt Rate - Afr Amer 43 mL/min (>60); Estimated Creatinine Clearance 28.85 ml/min; Glucose 243 mg/dL (74-106); Magnesium 1.7 mg/dL (1.6-2.6); Phosphorus 2.7 mg/dL (2.5-4.9); Potassium 3.5 mmol/L (3.5-5.1); Sodium Level 140 mmol/L (136-145)
[2020-05-23] MEDS: Insulin Lispro 100 UNIT/ML INSULN.PEN SC ×2 (06:32→11:02)
[2020-05-23 06:40] LABS: Bedside Glucose 229 mg/dL (70-110)
[2020-05-23] MEDS: Albuterol 2.5 MG/3 ML VIAL.NEB. INHALATION ×2 (07:30→12:55)
[2020-05-23] MEDS: Budesonide Respules 0.5 MG/2 ML AMPUL.NEB. INHALATION (07:30)
[2020-05-23] MEDS: Pantoprazole Sodium 20 MG Tablet PO (09:06)
[2020-05-23] MEDS: guaiFENesin 600 MG Tablet PO (09:06)
[2020-05-23] MEDS: Atenolol 25 MG Tablet PO (09:06)
[2020-05-23] MEDS: Memantine Hydrochloride 10 MG Tablet PO (09:06)
--- NOTE | 2020-05-23 09:12 | CASEMGMT ---
Social Work Note Per supervisor contact lens questions, pt has completed HCPOA and LW, haven't provided copies to [facility] and pt is unable to bring in copies. Delia Traore ADMINISTRATIVE SUPPORT ASSOCIATE, COMMERCIAL LOAN UNDERWRITER
--- NOTE | 2020-05-23 10:03 | DCINST_ITS ---
- Discharge Diagnoses Current Active Problems: Current Active and Chronic Problems (Last Reviewed 05/21/20 @ 18:[address] Moises Sommers, DO) Acute renal insufficiency (Acute) Hyperglycemia (Acute) Community acquired pneumonia (Acute) You will use the following diet at home:: Calorie/Carbohydrate Controlled (specify 1200, 1400, etc) - 1800 Calories, Cardiac Your food should be the consistency of: Regular Your liquids should be the consistency of: Regular/Thin Discharge Activity: Return to Normal Activity Call your doctor if you observe: Fever of 101 or Higher, Shortness of breath, Dizziness, Fainting spells, Swelling in the ankles, Chest pain, Increased palpitations (irregular heartbeat) Additional Instructions: Follow-up with your PCP and obtain an INR and a BMP. Your INR in the hospital was 3.1 on day of discharge which is high, so restart your coumadin on 05/24/2020 and have an INR on Wednesday and/or Wednesday. You renal function is a little high, so you will need lab work to monitor and you can restart your lasix when ok by your PCP. Allergies/Adverse Reactions: Allergies No Known Allergies Allergy (Verified 05/21/20 14:15) Medications to take at Discharge Aspirin E.C. [Ecotrin] 81 mg PO DAILY@1700 05/04/15 Atorvastatin Calcium [Lipitor] 80 mg PO QHS 11/23/16 Omeprazole [Prilosec] 20 mg PO BID 11/23/16 Budesonide/Formoterol 160/4.5 [Symbicort 160/4.5 Mcg Inhaler (SP)] 2 puff INHALATION BID 11/24/16 atenolol 25 mg tablet 25 mg PO DAILY tab 01/12/19 metformin 500 mg tablet 500 mg PO BID tab 01/12/19 Insulin Detemir [Levemir FlexPen] 16 units SUBCUT QHS 05/21/20 Levothyroxine Sodium [Synthroid] 88 mcg PO DAILY 05/21/20 Losartan Potassium [Cozaar] 50 mg PO DAILY 05/21/20 Memantine HCl [Memantine HCl ER] 28 mg PO DAILY 05/21/20 Semaglutide [Ozempic] 0.5 mg SUBCUT FR 05/21/20 Amoxicillin/Potassium Clav [Augmentin 875-125 Tablet] 1 ea PO BID #10 tab 05/23/20 Azithromycin 500 mg PO DAILY #1 tab 05/23/20 Furosemide [Lasix] 20 mg PO DAILY #0 05/23/20 Warfarin [Coumadin] 5 mg PO DAILY #0 05/23/20 The following prescriptions were given: Amoxicillin/Potassium Clav [Augmentin 875-125 Tablet] 1 ea PO BID #10 tab Transmission Status: Pending to [facility] Azithromycin 500 mg PO DAILY #1 tab Transmission Status: Pending to [facility] Primary Care Physician: Nata Palm DO [Primary Care Provider] - Please follow up with your Primary Care Physician in: 3-5 days Test Results: Test results from this visit will be discussed in further detail at your follow- up appointment, if applicable.
[2020-05-23 11:11] LABS: Bedside Glucose 378 mg/dL (70-110)
--- NOTE | 2020-05-23 12:29 | PCM.DC.SUM ---
Discharge Date and Diagnosis - Problem List Patient Problems: Active and Suspected Problems (Last Reviewed 05/21/20 @ 18:[address] Moises Sommers, DO) Acute renal insufficiency (Acute) Hyperglycemia (Acute) Community acquired pneumonia (Acute) Date of Admission: 05/21/20 Date of Discharge: 05/23/20 - Primary Discharge Diagnosis Acute Problems: Active Problems (Last Reviewed 05/21/20 @ 18:[address] Moises Sommers DO) Acute renal insufficiency (Acute) Hyperglycemia (Acute) Community acquired pneumonia (Acute) - Secondary Discharge Diagnosis Chronic Problems: Chronic Problems (Last Reviewed 05/21/20 @ 18:[address] Moises Sommers DO) Stage III chronic kidney disease (Chronic) Patent foramen ovale (Chronic) Seen on echo 05/07/2014 @ [facility] in [place] but NOT noted on subsequent echoes done @ [facility] 04/26/15, 06/29/2015, 09/02/16, or 01/06/2019; not noted on echo done 05/08/15 either. Bilateral carotid artery disease (Chronic) Nonrheumatic tricuspid (valve) insufficiency (Chronic) Severe (3+) per echo 01/06/2019 Secondary pulmonary hypertension (Chronic) RVSP increased from 41 mmhg per echo 09/02/16 to 65 mmhg per echo 01/06/2019. Ischemic cardiomyopathy (Chronic) Stented coronary artery (Chronic 10/17/15) ELIZABETH to [facility] @ [facility] 10/17/2015: 2.5 X 28 mm Promus Premier to mid LAD Atherosclerotic heart disease of [place] coronary artery without angina pectoris (Chronic) ELIZABETH to [facility] @ [facility] 10/17/2015: 2.5 X 28 mm Promus Premier to mid LAD per Dr. Tan Hyperlipidemia (Chronic) Atrial fibrillation (Chronic) Hypothyroidism (Chronic) AICD (automatic cardioverter/defibrillator) present (Chronic) Type II diabetes mellitus (Chronic) Hospital Course and Treatment Imaging Results: Clinical Impression(s) from Imaging Studies Chest X-Ray 05/21/20 16:35 IMPRESSION: No focal consolidation identified. Groundglass opacities better appreciated on recent chest CT. Electronically Signed: Warner Lima, at 17:04 EDT Tel , Service support , Consults: None Operations: None Procedures: None Summary of Care Provided: Per HPI: The patient is a 84 year old M who has not been feeling well for a week. Went to an outside hospital and was evaluated and deemed not that nothing was wrong at the time. Went to his primary care doctor who ordered a CAT scan that showed infiltrate in the left upper lung and the patient was started on levofloxacin. Patient has been having hemoptysis during this time. The hemoptysis consists of blood-tinged sputum but without globs but there was some noted chunks earlier. Patient presents today with a worsening of his kidney function and the hospital service was contacted for admission. Patient had been on levofloxacin for this pneumonia as of late last week. Hospital Course: 1. Community-acquired pneumonia/DAVID on CKD 3/[id number]-24-hman-old male who was seen by his PCP for not feeling well. He initially went to an outside hospital and was told that nothing was wrong then he followed up with his PCP and had a CT scan of his chest which demonstrated left upper lobe pneumonia. He was started on levofloxacin, however he started having worsening renal function and therefore he was told to come into the ER. He has done well while here and his creatinine did improve. His baseline is around 1.7-1.8, and on discharge it was 1.94. He was initially started on vancomycin and Zosyn however on discharge he was transitioned to Augmentin and azithromycin. He will likely need 1 more day of azithromycin and then he will complete the rest of his course on just the Augmentin. I also discussed with him that given his kidney dysfunction when he first came in, he should hold his Lasix until he has follow-up renal function testing by his PCP. Also his INR was elevated to 3.3 at its peak, this is likely secondary to the interaction between Levaquin and his Coumadin. So he will be able to restart his Coumadin tomorrow, his INR on discharge was 3.1. I did express that he needs to have an INR done by his PCP either tomorrow or Wednesday. He did also have some issues with hyperglycemia when he presented he had a blood sugar of 550, this is down to 243 on the day of discharge. I discussed the plan for discharge today and he expressed understanding of the risks and benefits and would like to go home today. He has not had any further episodes of hemoptysis other than what he had on the day of admission. This is likely secondary to his supratherapeutic INR, his aspirin, and his pneumonia and coughing. 2. A. fib, hypertension, hyperlipidemia, CAD status post stent, insulin-dependent diabetes type 2, COPD, GERD are all chronic medical conditions which complicate his care. His home medications were continued where appropriate. Patient Problems: Active and Suspected Problems (Last Reviewed 05/21/20 @ 18:[address] Moises Sommers, DO) Acute renal insufficiency (Acute) Hyperglycemia (Acute) Community acquired pneumonia (Acute) - Physical Exam Vitals/I&O's: Vital Signs Temp Pulse Resp BP Pulse Ox 97.5 F L 64 16 140/98 H 97 05/23/20 11:03 05/23/20 11:03 05/23/20 11:03 05/23/20 11:03 05/23/20 11:03 Oxygen Delivery Method Room Air Weight: 195 lb 8 oz Body Mass Index (BMI) 28.8 Finger Stick Blood Glucose 445 Intake and Output for Last 24 Hours 05/21/20 05/22/20 05/23/20 23:59 23:59 23:59 Intake Total 2127.5 / 2327.5 2505.0 / 2505.0 805 / 805 Output Total 450 / 450 850 / 850 800 / 800 Balance 1677.5 / 1877.5 1655.0 / 1655.0 5 / 5 General: Alert, Oriented x3, Cooperative, No apparent distress HEENT: Atraumatic, PERRLA, EOMI, Normocephalic Oral: Moist Mucosa Neck: Supple, No JVD Lungs: Clear to auscultation, Normal air movement, No rhonchi, No wheeze, No rales, Diminished Cardiovascular: Regular rate, Regular Rhythm, Normal S1, Normal S2, No murmurs Abdomen: Soft, Non Tender, Non-Distended, No Hepato-splenomegaly Extremities: No edema, Capillary Refill Less than 3 Seconds Neurological: Neuro grossly intact, Sensory exam intact to light touch and pain Psych/Mental Status: Normal Affect, Appropriate Microbiology Past 72 Hours 05/21/20 15:15 Blood Culture (Wb) - Anticubital Right Blood Culture - Preliminary No growth in 48 hours. 05/21/20 15:30 Blood Culture (Wb) - Anticubital Right Blood Culture - Preliminary No growth in 48 hours. 05/21/20 23:10 Sputum, Expectorated/Coughed Gram Stain - Final 05/21/20 23:10 Sputum, Expectorated/Coughed Respiratory Culture - Preliminary Presumptive C albicans 05/22/20 21:15 Urine, Clean Catch Streptococcus pneumoniae Antigen (M - Final 05/22/20 21:15 Urine, Clean Catch Legionella Antigen - Final Laboratory Results 05/22/20 17:00: POC Glucose 350 H 05/22/20 20:34: POC Glucose 277 H 05/23/20 05:30: WBC 6.7, RBC 4.49 L, Hgb 12.9 L, Hct 40.9, MCV 91.1, MCH 28.7, MCHC 31.5 L, RDW Std Deviation 50.6 H, RDW Coeff of Markie 15.0 H, Plt Count 117 L, MPV 12.7 H, Immature Gran % (Auto) 1.200 H, Neut % (Auto) 60.1, Lymph % (Auto) 28.0, [place] % (Auto) 7.6, Eos % (Auto) 2.5, Baso % (Auto) 0.6, Absolute Neuts (auto) 4.1, Absolute Lymphs (auto) 1.89, Nucleated RBC % 0 05/23/20 05:30: Sodium 140, Potassium 3.5, Chloride 108 H, Carbon Dioxide 26.0, Anion Gap 6, BUN 54 H, Creatinine 1.94 H, Estim Creat Clear Calc 28.85, Est GFR (MDRD) Af Amer 43 L, Est GFR (MDRD) Non-Af 35 L, BUN/Creatinine Ratio 27.8 H, Glucose 243 H, Calcium 8.1 L, Phosphorus 2.7, Magnesium 1.7 05/23/20 05:30: PT 31.9 H, INR 3.1 05/23/20 06:30: POC Glucose 229 H 05/23/20 10:59: POC Glucose 378 H Current Medications Acetaminophen (Tylenol) 650 mg PO Q6H PRN PRN PRN Reason: Pain Score 1-10/Temp > 100.7 F Albuterol Sulfate (Ventolin Aerosols) 2.5 mg INHALATION Q6HWA.RT YESICA Last Admin: 05/23/20 07:30 Dose: 2.5 mg Documented by: Atenolol (Tenormin (Beta Della)) 25 mg PO DAILY REPLACED BY [facility] Last Admin: 05/23/20 09:06 Dose: 25 mg Documented by: Atorvastatin Calcium (Lipitor) 80 mg PO QHS REPLACED BY [facility] Last Admin: 05/22/20 20:42 Dose: 80 mg Documented by: Budesonide (Pulmicort Aerosol) 0.5 mg INHALATION Q12H.RT REPLACED BY [facility] Last Admin: 05/23/20 07:30 Dose: 0.5 mg Documented by: Dextrose (D50w Syringe) 0 gm IV X1 PRN; Protocol PRN Reason: Hypoglycemia Glucagon () 1 mg IM .X1 PRN PRN Reason: Hypoglycemia Guaifenesin (Robitussin) 20 ml PO Q4H PRN PRN PRN Reason: COUGH Guaifenesin (Mucinex) 600 mg PO BID REPLACED BY [facility] Last Admin: 05/23/20 09:06 Dose: 600 mg Documented by: Piperacillin Sod/Tazobactam (Sod 3.375 gm/ Sodium Chloride) 50 mls @ 12.5 mls/hr IV Q8 REPLACED BY [facility] Stop: 05/28/20 22:01 Last Infusion: 05/23/20 09:21 Dose: Infused Documented by: Azithromycin 500 mg/ Dextrose 255 mls @ 250 mls/hr IV Q24 REPLACED BY [facility] Last Infusion: 05/23/20 10:50 Dose: Infused Documented by: Sodium Chloride () 250 mls @ 15 mls/hr IV .[id number] PRN PRN Reason: Saline Flush Insulin Glargine (Lantus (Bkc)) 16 units SC QHS REPLACED BY [facility] Last Admin: 05/22/20 20:43 Dose: 16 u Documented by: Insulin Human Lispro (Humalog Kwikpen (Bkc)) 0 unit SC ACHS REPLACED BY [facility]; Protocol Last Admin: 05/23/20 11:02 Dose: 10 units Documented by: Levothyroxine Sodium (Synthroid) 88 mcg PO DAILY@0600 REPLACED BY [facility] Last Admin: 05/23/20 05:17 Dose: 88 mcg Documented by: Memantine (Namenda) 10 mg PO BID REPLACED BY [facility] Last Admin: 05/23/20 09:06 Dose: 10 mg Documented by: Ondansetron HCl (Zofran) 4 mg IV Q8H PRN PRN PRN Reason: NAUSEA/VOMITING Pantoprazole Sodium (Protonix) 20 mg PO BID YESICA Last Admin: 05/23/20 09:06 Dose: 20 mg Documented by: Sodium Chloride () 10 - 40 ml IV UD PRN PRN Reason: SALINE FLUSH Discharge Activity: Return to Normal Activity Call your doctor if you observe: Fever of 101 or Higher, Shortness of breath, Dizziness, Fainting spells, Swelling in the ankles, Chest pain, Increased palpitations (irregular heartbeat) Home Medications: Medications to take at Discharge Aspirin E.C. [Ecotrin] 81 mg PO DAILY@1700 05/04/15 Atorvastatin Calcium [Lipitor] 80 mg PO QHS 11/23/16 Omeprazole [Prilosec] 20 mg PO BID 11/23/16 Budesonide/Formoterol 160/4.5 [Symbicort 160/4.5 Mcg Inhaler (SP)] 2 puff INHALATION BID 11/24/16 atenolol 25 mg tablet 25 mg PO DAILY tab 01/12/19 metformin 500 mg tablet 500 mg PO BID tab 01/12/19 Insulin Detemir [Levemir FlexPen] 16 units SUBCUT QHS 05/21/20 Levothyroxine Sodium [Synthroid] 88 mcg PO DAILY 05/21/20 Losartan Potassium [Cozaar] 50 mg PO DAILY 05/21/20 Memantine HCl [Memantine HCl ER] 28 mg PO DAILY 05/21/20 Semaglutide [Ozempic] 0.5 mg SUBCUT FR 05/21/20 Amoxicillin/Potassium Clav [Augmentin 875-125 Tablet] 1 ea PO BID #10 tab 05/23/20 Azithromycin 500 mg PO DAILY #1 tab 05/23/20 Furosemide [Lasix] 20 mg PO DAILY #0 05/23/20 Warfarin [Coumadin] 5 mg PO DAILY #0 05/23/20 Following Prescriptions Were Given to Patient: Amoxicillin/Potassium Clav [Augmentin 875-125 Tablet] 1 ea PO BID #10 tab Transmission Status: Received by [facility] Azithromycin 500 mg PO DAILY #1 tab Transmission Status: Received by [facility] Primary Care Physician: Ntaa Palm DO [Primary Care Provider] - Please follow up with your Primary Care Physician in: 3-5 days Disposition: Home Minutes spent on discharge:: 35 Patient Condition:: Stable Medical Necessity - Tobacco Use Smoking Status: Former smoker Meaningful Use Info Meaningful Use Diagnoses (Choose all that apply): None applicable Inpatient E&M: 13653 Disch Hosp
--- NOTE | 2020-05-23 13:20 | CASEMGMT ---
Social Work Note VALERIANO received call from Gina Langston at [facility]. Gina states pt has Home Delivered Meals and emergency response button. VALERIANO informed Gina that pt is being discharged home today. VALERIANO faxed discharge paperwork to Gina at [facility]. Delia Traore AUTOMATIC CAR WASH ATTENDANT, [employer]
--- NOTE | 2020-05-23 13:56 | NURSING ---
called daughter radha with discharge inst.
--- NOTE | 2020-05-24 17:24 | CASEMGMT ---
KELSI COATS Discharge Follow-up Phone Call: SALEEM: Michelle Strata: 3 Call Date: 05/24/2020 Discharge Date:05/23/2020 Time of Call: 1715 Duration: 5 minutes Admitting Diagnosis: Pneumonia Follow-up call placed to pt. Pt states he has been doing well since discharge. Denies any fevers or current SOB. States he has been able to get around his home without difficulty and has been eating. Pt states he obtained his antibiotic and they have been put in his pill box. Pt states his daughter's have been taking good care of me and he was expecting his daughter and son-in-law to arrive at 1730 to stay the night with him. Pt states someone stays the night with him every night since his 2 months ago. Reviewed discharge instructions including need to follow-up with Dr. Palm and to obtain his INR. States he did not get his blood drawn today. He states he will discuss this with his daughter when she arrives and will make sure he gets these completed. Pt denied any further questions or concerns at this time. Instructed pt to call [facility] case management if he has any questions or concerns. Damian Werner RN CM
== END 2020-05-23 15:45 | disposition home or self-care (01) | DRG 190 ==
LOC: ED 17:18 → MS3 17:45
PROVIDERS: Hospitalist; Emergency Provider Emergency Medicine; PCP Internal Medicine; Visit Provider Family Medicine
DX: J44.0 Chronic obstructive pulmonary disease with (acute) lower respiratory infection (principal); J18.9 Pneumonia, unspecified organism; Q21.1 Atrial septal defect; N17.9 Acute kidney failure, unspecified; E11.65 Type 2 diabetes mellitus with hyperglycemia; E11.22 Type 2 diabetes mellitus with diabetic chronic kidney disease; I12.9 Hypertensive chronic kidney disease with stage 1 through stage 4 chronic kidney disease, or unspecified chronic kidney disease; N18.3 Chronic kidney disease, stage 3 (moderate); I65.23 Occlusion and stenosis of bilateral carotid arteries; I36.1 Nonrheumatic tricuspid (valve) insufficiency; I25.5 Ischemic cardiomyopathy; I25.10 Atherosclerotic heart disease of native coronary artery without angina pectoris; I27.21 Secondary pulmonary arterial hypertension; E78.5 Hyperlipidemia, unspecified; E03.9 Hypothyroidism, unspecified; I48.0 Paroxysmal atrial fibrillation; I49.3 Ventricular premature depolarization; K21.9 Gastro-esophageal reflux disease without esophagitis; F03.90 Unspecified dementia, unspecified severity, without behavioral disturbance, psychotic disturbance, mood disturbance, and anxiety; E78.00 Pure hypercholesterolemia, unspecified; Z95.810 Presence of automatic (implantable) cardiac defibrillator; Z87.891 Personal history of nicotine dependence; Z79.01 Long term (current) use of anticoagulants; Z79.4 Long term (current) use of insulin; Z79.82 Long term (current) use of aspirin; Z95.5 Presence of coronary angioplasty implant and graft
CPT/HCPCS: 36415; 71045; 80048; 82962; 83605; 83735; 84100; 85025; 85610; 87040; 87070; 87205; 87449; 87635; 93005; 94640; 94667; 94668; 97110; 97116; 97162; 97166; 97530; 99284; C9803; J7030; J7040; J7050; U0003

== ENCOUNTER → 2020-05-31 16:33 | Outpatient (CLI) | payer MEDICARE, MEDICAID, SELFPAY ==
[2020-05-21 18:06] VITALS: BMI 28.8
[2020-05-31 17:58] LABS: International Normalized Ratio 1.1; Prothrombin Time (Protime)PT. 13.8 SECONDS (11.7-14.9)
== END ==
PROVIDERS: PCP Internal Medicine; Referring Provider Internal Medicine; Visit Provider Internal Medicine
DX: Z79.01 Long term (current) use of anticoagulants (principal)
CPT/HCPCS: 36415; 85610

== ENCOUNTER → 2020-07-12 09:48 | Outpatient (CLI) | payer MEDICARE, MEDICAID, SELFPAY ==
[2020-05-21 18:06] VITALS: BMI 28.8
--- NOTE | 2020-07-12 09:53 | ART_ITS ---
Reason For Study: Atherosclerosis Procedure A bilateral lower extremity continuous wave Doppler with analog waveform analysis and ankle brachial indexes. Left Segmental Pressures Left brachial= 127mmHg. Left posterior tibial artery = 99mmHg. Left dorsalis pedis artery = 101mmHg. The left dorsalis pedis waveforms are monophasic. The left posterior tibial artery waveforms are biphasic. Right Segmental Pressures Right brachial= 150mmHg. Right posterior tibial artery = 69mmHg. Right dorsalis pedis artery = 78mmHg. The right dorsalis pedis waveforms are biphasic. The right posterior tibial artery waveforms are monophasic. Indices The right ankle brachial index by the dorsalis pedis is 0.52. The right ankle brachial index by the posterior tibial artery is 0.46. The left ankle brachial index by the dorsalis pedis is 0.67. The left ankle brachial index by the posterior tibial artery is 0.66. Interpretation Summary Bilateral biphasic and ALFONSO 0.52 and 0.67. Ordering Physician: Andrew Keith Referring Physician: Nata Palm M.D. Performed By: Delia Coombs RVT and Student
--- NOTE | 2020-07-12 09:53 | ADU_ITS ---
Reason For Study: Atherosclerosis Right Velocities Left Velocities Ext. Iliac Artery, dist = 59.2 cm./sec. Ext Iliac Artery, dist = 81.8 cm./sec. Common Femoral Artery, mid = 359.9 cm./sec. Common Femoral Artery, mid = 57 cm./sec. Supf Femoral Artery, prox = 122 cm./sec. Supf. Femoral Artery, prox = 73.5 cm./sec. Supf Femoral Artery, mid = 55.6 cm./sec. Supf. Femoral Artery, mid = 61.4 cm./sec. Supf Femoral Artery, dist. = 42.4 cm./sec. Supf. Femoral Artery, dist = 41.8 cm./sec. Profunda Femoral Artery = 123.4 cm./sec. Profunda Femoral Artery = 51.5 cm./sec. Popliteal Artery, prox. = 22 cm./sec. Popliteal Artery, proximal, = 43.5 cm./sec. Popliteal Artery, mid = 19.9 cm./sec. Popliteal Artery, mid = 32 cm./sec. Popliteal artery, distal, No flow noted. Popliteal Artery, distal = 32 cm./sec. MANAGER TRAINING AND DEVELOPMENT, prox, No flow noted. Post Tibial Artery, mid = 57 cm./sec. Post. Tibial Artery, mid = 27.5 cm./sec. Ant.Tibial Artery, prox = 25.1 cm./sec. Post. Tibial Artery, dist = 61.6 cm./sec. Ant Tibial Artery, mid = 22.1 cm./sec. Peroneal Artery, prox = 35.4 cm./sec. Ant. Tibial Artery, distal = 21.1 cm./sec. Peroneal Artery, mid = 87.5 cm./sec. MANAGER TRAINING AND DEVELOPMENT, prox and distal, No flow noted. Peroneal Artery,dist = 51.2 cm./sec. Peroneal artery, No flow noted throughout. Ant. Tibial Artery, prox = 36.6 cm./sec. Ant. Tibial Artery, mid = 52.2 cm./sec. Ant. Tibial Artery, dist = 46.9 cm./sec. Procedure Exam performed in department. 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 Left posterior tibiall and peroneal occluded, there is triphasic flow through popliteal artery on left. Ordering Physician: Andrew Keith Referring Physician: Nata Palm M.D. Performed By: Delia Coombs RVT and Student
== END ==
PROVIDERS: PCP Internal Medicine; Referring Provider Surgery Vascular Surgery; Visit Provider Surgery Vascular Surgery
DX: I70.213 Atherosclerosis of native arteries of extremities with intermittent claudication, bilateral legs (principal)
CPT/HCPCS: 93922; 93925

== ENCOUNTER 2020-08-07 11:37 | Emergency (ER) | payer MEDICARE, MEDICAID, SELFPAY ==
[2020-05-21 18:06] VITALS: BMI 28.8
[2020-08-07 11:38] VITALS: BP 127/86; PULSE 89; RESP 17; TEMP 36.4; O2SAT 99; BMI 29.5
--- NOTE | 2020-08-07 12:08 | ED.DCSUM_ITS ---
History of Present Illness Chief Complaint: Abn Labs Informant: Patient Narrative: Patient is an 84-year-old male with a past medical history of dementia, CAD on Eliquis who presents to the emergency department after having abnormal outpatient lab work. He was found to have a hemoglobin of 8.9. Patient denies ever having anemia requiring transfusions before in the past. He otherwise feels well. He denies any lightheadedness, chest pain, shortness of breath or palpitations. He states he feels very well. He denies any black tarry stools. 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 He states that this was approximately 1 week ago. Apparently patient was on warfarin prior to his operation and he had elevated INR. There have been difficulty controlling this so he was switched. Past Medical History - Allergies and Home Meds Allergies/Adverse Reactions: Allergies No Known Allergies Allergy (Verified 08/07/20 11:38) Primary Care Physician: Nata Palm DO [Primary Care Provider] - 1 Week Prior records reviewed: Yes Surgical History: - - Right carotid endarterectomy, coronary artery stent placement, pacemaker Smoking Status: Former smoker - Family History Maternal Family History: Family History (Last Reviewed 05/21/20 @ 18:[address] Moises Sommers DO) Mother CAD (coronary artery disease) Father Cancer Sister Multiple sclerosis CVA (cerebral vascular accident) Family History: Reports: - - Abdominal aortic aneurysm Paternal Family History: Family History (Last Reviewed 05/21/20 @ 18:[address] Moises Sommers DO) Mother CAD (coronary artery disease) Father Cancer Sister Multiple sclerosis CVA (cerebral vascular accident) Family History: Reports: Cancer - Lung cancer Review of Systems All systems negative except as indicated General: Denies: Chills, Fever, Sweats Eyes: Denies: Visual changes - bilaterally, Diplopia ENT: Denies: Rhinorrhea, Sore throat Cardiovascular: Denies: Chest pain, Palpitations Respiratory: Denies: Dyspnea, Cough, Dyspnea on exertion Gastrointestinal: Denies: Abdominal pain, Nausea, Vomiting, Diarrhea, Melena Genitourinary: Denies: Dysuria, Hematuria, Frequency Musculoskeletal: Denies: Back pain, Extremity Pain Skin: Denies: Rash, Wounds Neurological: Denies: Headache, Weakness, Numbness Physical Exam Vital Signs/Narrative: Vital Signs Temp Pulse Resp BP Pulse Ox 08/07/20 11:38 97.6 F L 89 17 127/86 H 99 General: Well nourished, Well developed, No Acute Distress Head: Normocephalic, Atraumatic Eyes: Perrl, EOMI ENT: Moist mucous membranes, No rhinorrhea Neck: Supple, Nontender Cardiovascular: Regular rate, Regular rhythm, No murmurs Respiratory: No distress, CTA bilaterally, Chest nontender Abdomen: Soft, Nontender, Nondistended, Normal bowel sounds Back: Nontender, Normal Inspection Extremities: Nontender, No edema, - - Right foot and dressing. Clean and nonsaturated.. Negative for: Calf Tenderness Skin: Normal color, No rash Neurological: Alert, Normal Strength, Normal Sensation Psychological: Normal affect, Normal Mood Diagnostic/Tx/Re-eval - Medical Decision Making Patient presents to the ED for anemia found by outpatient lab work. He otherwise is asymptomatic. He is on Eliquis. Vital signs within normal limits upon arrival. He is in no acute distress. Will recheck basic lab work. I did speak with the patient's daughter. They state he did lose a lot of blood during the toe amputation for his ulcers. His hemoglobin is actually elevated compared to his last lab draw a few days prior. No indication for transfusion at this time. He is otherwise asymptomatic. I do recommend outpatient follow- up of this level. No indication for hospitalization. He is denying any black tarry stools. Likely all postoperative from bloody blood loss. Will discharge home in stable condition. Warning signs and symptoms for which to return to ED are reviewed. They understand and are agreeable this plan. All questions answered. ED Disposition - Plan for ED Patient: Disposition: Home or Assisted Living Diagnosis: Postoperative anemia Instructions: ED Anemia Type Not Specified Referrals: Nata Palm DO [Primary Care Provider] - 1 Week
[2020-08-07 12:39] LABS: Basophil# 0.06 X10^3/uL; Basophil% 0.8 % (0-1); Eosinophil# 0.18 X10^3/uL; Eosinophils% 2.3 % (0-5); Hematocrit 29.5 % (40-54); Hemoglobin 9.2 g/dL (13.0-16.5); Lymphocyte % 11.4 % (19-41); Mean Corp Hgb Conc 31.2 g/dL (32-36); Mean Corpuscular Hgb 30.5 pg (27.0-32.0); Mean Corpuscular Volume 97.7 fL (80-94); Mean Platelet Vol. 11.4 fl (6.2-12.0); Monocyte# 0.62 X10^3/uL; Monocyte% 7.9 % (0-10); NRBC Flagged by Analyzer 0 % (0-5); Neutrophil # 6.04 X10^3/uL (2.7-7.7); Neutrophil % 76.6 % (47-70); Platelet Count 149 K/mm3 (150-450); RBC Distribution Width CV 16.6 % (11.6-14.6); RBC Distribution Width SD 57.8 fl (35.1-43.9); Red Blood Count 3.02 M/mm3 (4.6-6.2); White Blood Count 7.9 K/mm3 (4.4-11.0)
[2020-08-07 12:49] LABS: International Normalized Ratio 1.5; Prothrombin Time (Protime)PT. 17.4 SECONDS (11.7-14.9)
[2020-08-07 12:53] LABS: Anion Gap 5 (5-15); BUN 33 mg/dL (7-18); BUN/Creat Ratio 21.4 RATIO (10-20); Chloride 112 mmol/L (98-107); Creatinine, Serum 1.54 mg/dL (0.70-1.30); EST Glomerular Filtration Rate 46 mL/min (>60); Est Glom Filt Rate - Afr Amer 56 mL/min (>60); Estimated Creatinine Clearance 36.34 ml/min; Glucose 259 mg/dL (74-106); Potassium 4.4 mmol/L (3.5-5.1); Sodium Level 142 mmol/L (136-145)
[2020-08-07 14:23] VITALS: BP 123/90; PULSE 87; RESP 20; O2SAT 95
== END 2020-08-07 14:24 | disposition home or self-care (01) ==
PROVIDERS: Emergency Provider Emergency Medicine; PCP Internal Medicine
DX: D64.9 Anemia, unspecified (principal); Z89.421 Acquired absence of other right toe(s); F03.90 Unspecified dementia, unspecified severity, without behavioral disturbance, psychotic disturbance, mood disturbance, and anxiety; I25.10 Atherosclerotic heart disease of native coronary artery without angina pectoris; Z95.0 Presence of cardiac pacemaker; Z95.5 Presence of coronary angioplasty implant and graft; Z79.01 Long term (current) use of anticoagulants; Z79.82 Long term (current) use of aspirin; Z79.899 Other long term (current) drug therapy
CPT/HCPCS: 80048; 85025; 85610; 86850; 86900; 86901; 99283

== ENCOUNTER 2020-08-19 15:30 | Outpatient (RCR) | payer MEDICARE, MEDICAID, SELFPAY ==
[2020-05-21 18:06] VITALS: BMI 28.8
[2020-08-05 17:07] LABS: Absolute Lymphocyte Count 0.83 X10^3/uL (0.83-4.51); Absolute Neutrophil Count 5.1 X10^3/uL (2.0-7.7); Basophil# 0.03 X10^3/uL; Basophil% 0.5 % (0-1); Eosinophil# 0.09 X10^3/uL; Eosinophils% 1.4 % (0-5); Hematocrit 28.9 % (40-54); Hemoglobin 8.9 g/dL (13.0-16.5); Lymphocyte # 0.83 X10^3/ul (4.0); Lymphocyte % 12.5 % (19-41); Mean Corp Hgb Conc 30.8 g/dL (32-36); Mean Corpuscular Volume 97.3 fL (80-94); Mean Platelet Vol. 11.7 fl (6.2-12.0); Monocyte# 0.49 X10^3/uL; Monocyte% 7.4 % (0-10); NRBC Flagged by Analyzer 0 % (0-5); Neutrophil # 5.14 X10^3/uL (2.7-7.7); Neutrophil % 77.1 % (47-70); Platelet Count 146 K/mm3 (150-450); RBC Distribution Width CV 16.2 % (11.6-14.6); RBC Distribution Width SD 56.9 fl (35.1-43.9); Red Blood Count 2.97 M/mm3 (4.6-6.2); White Blood Count 6.7 K/mm3 (4.4-11.0)
[2020-08-05 17:12] LABS: Creatinine, Serum 1.59 mg/dL (0.70-1.30); EST Glomerular Filtration Rate 44 mL/min (>60); Est Glom Filt Rate - Afr Amer 54 mL/min (>60); Potassium 4.6 mmol/L (3.5-5.1)
[2020-08-13 15:43] LABS: Absolute Lymphocyte Count 0.94 X10^3/uL (0.83-4.51); Absolute Neutrophil Count 4.8 X10^3/uL (2.0-7.7); Basophil# 0.04 X10^3/uL; Basophil% 0.6 % (0-1); Eosinophil# 0.35 X10^3/uL; Eosinophils% 5.3 % (0-5); Hematocrit 31.1 % (40-54); Hemoglobin 9.4 g/dL (13.0-16.5); Lymphocyte # 0.94 X10^3/ul (4.0); Lymphocyte % 14.2 % (19-41); Mean Corp Hgb Conc 30.2 g/dL (32-36); Mean Corpuscular Hgb 29.9 pg (27.0-32.0); Mean Platelet Vol. 11.9 fl (6.2-12.0); Monocyte% 7.5 % (0-10); NRBC Flagged by Analyzer 0 % (0-5); Neutrophil # 4.77 X10^3/uL (2.7-7.7); Neutrophil % 71.8 % (47-70); Platelet Count 143 K/mm3 (150-450); RBC Distribution Width CV 16.5 % (11.6-14.6); RBC Distribution Width SD 59.1 fl (35.1-43.9); Red Blood Count 3.14 M/mm3 (4.6-6.2); White Blood Count 6.6 K/mm3 (4.4-11.0)
[2020-08-13 15:56] LABS: Creatinine, Serum 1.43 mg/dL (0.70-1.30); EST Glomerular Filtration Rate 50 mL/min (>60); Est Glom Filt Rate - Afr Amer 61 mL/min (>60); Potassium 3.8 mmol/L (3.5-5.1)
[2020-08-19 17:39] LABS: Absolute Lymphocyte Count 0.74 X10^3/uL (0.83-4.51); Absolute Neutrophil Count 4.3 X10^3/uL (2.0-7.7); Basophil# 0.03 X10^3/uL; Basophil% 0.5 % (0-1); Eosinophil# 0.19 X10^3/uL; Eosinophils% 3.3 % (0-5); Hematocrit 29.7 % (40-54); Hemoglobin 8.8 g/dL (13.0-16.5); Lymphocyte # 0.74 X10^3/ul (4.0); Lymphocyte % 12.7 % (19-41); Mean Corp Hgb Conc 29.6 g/dL (32-36); Mean Corpuscular Hgb 29.7 pg (27.0-32.0); Mean Corpuscular Volume 100.3 fL (80-94); Mean Platelet Vol. 12.4 fl (6.2-12.0); Monocyte# 0.51 X10^3/uL; Monocyte% 8.7 % (0-10); NRBC Flagged by Analyzer 0 % (0-5); Neutrophil # 4.31 X10^3/uL (2.7-7.7); Neutrophil % 73.8 % (47-70); Platelet Count 113 K/mm3 (150-450); RBC Distribution Width CV 17.2 % (11.6-14.6); RBC Distribution Width SD 62.4 fl (35.1-43.9); Red Blood Count 2.96 M/mm3 (4.6-6.2); White Blood Count 5.8 K/mm3 (4.4-11.0)
[2020-08-19 18:05] LABS: Creatinine, Serum 1.65 mg/dL (0.70-1.30); EST Glomerular Filtration Rate 43 mL/min (>60); Est Glom Filt Rate - Afr Amer 51 mL/min (>60); Potassium 4.5 mmol/L (3.5-5.1)
== END 2020-08-19 18:00 | disposition home or self-care (01) ==
LOC: HHLAB 15:30
PROVIDERS: PCP Internal Medicine; Referring Provider Internal Medicine; Visit Provider Internal Medicine
DX: E11.621 Type 2 diabetes mellitus with foot ulcer (principal); L97.511 Non-pressure chronic ulcer of other part of right foot limited to breakdown of skin; M86.9 Osteomyelitis, unspecified
CPT/HCPCS: 82565; 84132; 85025

== ENCOUNTER → 2020-08-26 13:14 | Outpatient (CLI) | payer MEDICARE, MEDICAID, SELFPAY ==
[2020-08-07 11:38] VITALS: BMI 29.5
[2020-08-26 13:30] LABS: Absolute Lymphocyte Count 0.76 X10^3/uL (0.83-4.51); Absolute Neutrophil Count 5.9 X10^3/uL (2.0-7.7); Basophil# 0.04 X10^3/uL; Basophil% 0.5 % (0-1); Eosinophil# 0.26 X10^3/uL; Eosinophils% 3.4 % (0-5); Hematocrit 34.2 % (40-54); Hemoglobin 10.1 g/dL (13.0-16.5); Lymphocyte # 0.76 X10^3/ul (4.0); Mean Corp Hgb Conc 29.5 g/dL (32-36); Mean Corpuscular Volume 98.3 fL (80-94); Mean Platelet Vol. 11.5 fl (6.2-12.0); Monocyte# 0.55 X10^3/uL; Monocyte% 7.2 % (0-10); NRBC Flagged by Analyzer 0 % (0-5); Neutrophil # 5.92 X10^3/uL (2.7-7.7); Platelet Count 146 K/mm3 (150-450); RBC Distribution Width CV 16.1 % (11.6-14.6); RBC Distribution Width SD 58.1 fl (35.1-43.9); Red Blood Count 3.48 M/mm3 (4.6-6.2); White Blood Count 7.6 K/mm3 (4.4-11.0)
[2020-08-26 13:55] LABS: Creatinine, Serum 1.48 mg/dL (0.70-1.30); EST Glomerular Filtration Rate 48 mL/min (>60); Est Glom Filt Rate - Afr Amer 58 mL/min (>60); Potassium 4.4 mmol/L (3.5-5.1)
== END ==
PROVIDERS: PCP Internal Medicine
DX: M86.9 Osteomyelitis, unspecified (principal)
CPT/HCPCS: 82565; 84132; 85025

== ENCOUNTER 2020-09-02 13:35 | Outpatient (RCR) | payer MEDICARE, MEDICAID, SELFPAY ==
[2020-08-29 14:13] LABS: Anion Gap 8 (5-15); BUN 41 mg/dL (7-18); BUN/Creat Ratio 24.3 RATIO (10-20); Chloride 111 mmol/L (98-107); Creatinine, Serum 1.69 mg/dL (0.70-1.30); EST Glomerular Filtration Rate 41 mL/min (>60); Est Glom Filt Rate - Afr Amer 50 mL/min (>60); Glucose 220 mg/dL (74-106); Potassium 4.5 mmol/L (3.5-5.1); Sodium Level 143 mmol/L (136-145)
[2020-09-02 15:44] LABS: Absolute Lymphocyte Count 1.19 X10^3/uL (0.83-4.51); Basophil# 0.04 X10^3/uL; Basophil% 0.5 % (0-1); Eosinophil# 0.42 X10^3/uL; Eosinophils% 5.7 % (0-5); Hematocrit 36.5 % (40-54); Hemoglobin 10.8 g/dL (13.0-16.5); Lymphocyte # 1.19 X10^3/ul (4.0); Lymphocyte % 16.2 % (19-41); Mean Corp Hgb Conc 29.6 g/dL (32-36); Mean Corpuscular Volume 97.9 fL (80-94); Mean Platelet Vol. 11.8 fl (6.2-12.0); Monocyte# 0.69 X10^3/uL; Monocyte% 9.4 % (0-10); NRBC Flagged by Analyzer 0 % (0-5); Neutrophil # 4.95 X10^3/uL (2.7-7.7); Neutrophil % 67.5 % (47-70); Platelet Count 175 K/mm3 (150-450); RBC Distribution Width CV 15.8 % (11.6-14.6); RBC Distribution Width SD 57.1 fl (35.1-43.9); Red Blood Count 3.73 M/mm3 (4.6-6.2); White Blood Count 7.3 K/mm3 (4.4-11.0)
[2020-09-02 15:52] LABS: Creatinine, Serum 1.58 mg/dL (0.70-1.30); EST Glomerular Filtration Rate 45 mL/min (>60); Est Glom Filt Rate - Afr Amer 54 mL/min (>60); Potassium 4.1 mmol/L (3.5-5.1)
== END 2020-09-02 18:00 | disposition home or self-care (01) ==
LOC: HHLAB 13:35
PROVIDERS: PCP Internal Medicine; Referring Provider Internal Medicine; Visit Provider Internal Medicine
DX: I50.9 Heart failure, unspecified (principal); M86.9 Osteomyelitis, unspecified
CPT/HCPCS: 80048; 82565; 84132; 85025

== ENCOUNTER → 2023-05-11 | Outpatient (REF) | payer MEDICARE, MEDICAID, SELFPAY ==
[2023-05-11 09:43] LABS: Absolute Lymphocyte Count 1.85 X10^3/uL (0.83-4.51); Absolute Neutrophil Count 4.8 X10^3/uL (2.0-7.7); Basophil# 0.04 X10^3/uL; Basophil% 0.5 % (0-1); Eosinophil# 0.25 X10^3/uL; Eosinophils% 3.3 % (0-5); Hematocrit 36.1 % (40-54); Lymphocyte # 1.85 X10^3/ul (0.83-4.51); Lymphocyte % 24.7 % (19-41); Mean Corp Hgb Conc 33.2 g/dL (32-36); Mean Corpuscular Hgb 30.5 pg (27.0-32.0); Mean Corpuscular Volume 91.6 fL (80-94); Mean Platelet Vol. 12.3 fl (6.2-12.0); Monocyte# 0.51 X10^3/uL; Monocyte% 6.8 % (0-10); NRBC Flagged by Analyzer 0 % (0-5); Platelet Count 142 K/mm3 (150-450); RBC Distribution Width CV 14.4 % (11.6-14.6); Red Blood Count 3.94 M/mm3 (4.6-6.2); White Blood Count 7.5 K/mm3 (4.4-11.0)
[2023-05-11 10:05] LABS: ALB/GLOB Ratio 0.7 RATIO (0.9-2.4); AST(SGOT) 12 U/L (15-37); Alanine Aminotransfer ALT/SGPT 19 U/L (16-61); Albumin, Serum 3.2 g/dL (3.2-5.0); Alkaline Phosphatase 134 U/L (45-117); Anion Gap 7 (5-15); BUN 73 mg/dL (7-18); Calcium,Total 9.1 mg/dL (8.5-10.1); Chloride 113 mmol/L (98-107); Creatinine, Serum 2.43 mg/dL (0.70-1.30); EST Glomerular Filtration Rate 27 mL/min (>60); Est Glom Filt Rate - Afr Amer 33 mL/min (>60); Globulin 4.3 g/dL (2.2-4.2); Glucose 306 mg/dL (74-106); Potassium 4.2 mmol/L (3.5-5.1); Protein, Total 7.5 g/dL (6.4-8.2); Sodium Level 143 mmol/L (136-145)
[2023-05-11 10:27] LABS: Hemoglobin A1c 7.8 % (3.8-5.6)
== END ==
LOC: OLS.WHLEAS 05:00
PROVIDERS: PCP Internal Medicine; Visit Provider Internal Medicine
DX: I50.33 Acute on chronic diastolic (congestive) heart failure (principal); Z79.899 Other long term (current) drug therapy
CPT/HCPCS: 36415; 80053; 83036; 85025

== ENCOUNTER → 2023-05-13 | Outpatient (REF) | payer MEDICARE, MEDICAID, SELFPAY ==
[2023-05-13 10:21] LABS: Absolute Lymphocyte Count 1.76 X10^3/uL (0.83-4.51); Absolute Neutrophil Count 4.9 X10^3/uL (2.0-7.7); Basophil# 0.04 X10^3/uL; Basophil% 0.5 % (0-1); Eosinophils% 2.7 % (0-5); Hematocrit 35.2 % (40-54); Hemoglobin 11.6 g/dL (13.0-16.5); Lymphocyte # 1.76 X10^3/ul (0.83-4.51); Lymphocyte % 23.5 % (19-41); Mean Corpuscular Hgb 30.1 pg (27.0-32.0); Mean Corpuscular Volume 91.2 fL (80-94); Mean Platelet Vol. 12.6 fl (6.2-12.0); Monocyte# 0.53 X10^3/uL; Monocyte% 7.1 % (0-10); NRBC Flagged by Analyzer 0 % (0-5); Neutrophil % 65.4 % (47-70); Platelet Count 141 K/mm3 (150-450); RBC Distribution Width CV 14.5 % (11.6-14.6); RBC Distribution Width SD 47.8 fl (35.1-43.9); Red Blood Count 3.86 M/mm3 (4.6-6.2); White Blood Count 7.5 K/mm3 (4.4-11.0)
[2023-05-13 10:31] LABS: Anion Gap 6 (5-15); BUN 80 mg/dL (7-18); BUN/Creat Ratio 30.5 RATIO (10-20); Calcium,Total 9.1 mg/dL (8.5-10.1); Chloride 112 mmol/L (98-107); Creatinine, Serum 2.62 mg/dL (0.70-1.30); EST Glomerular Filtration Rate 25 mL/min (>60); Est Glom Filt Rate - Afr Amer 30 mL/min (>60); Glucose 287 mg/dL (74-106); Potassium 4.3 mmol/L (3.5-5.1); Sodium Level 142 mmol/L (136-145)
== END ==
LOC: OLS.WHLEAS 05:00
PROVIDERS: PCP Internal Medicine; Visit Provider Internal Medicine
DX: I50.33 Acute on chronic diastolic (congestive) heart failure (principal)
CPT/HCPCS: 36415; 80048; 85025

== ENCOUNTER → 2023-05-20 | Outpatient (REF) | payer MEDICARE, MEDICAID, SELFPAY ==
[2023-05-20 09:34] LABS: Absolute Lymphocyte Count 1.79 X10^3/uL (0.83-4.51); Absolute Neutrophil Count 4.9 X10^3/uL (2.0-7.7); Basophil# 0.04 X10^3/uL; Basophil% 0.5 % (0-1); Eosinophil# 0.22 X10^3/uL; Eosinophils% 2.9 % (0-5); Hemoglobin 11.1 g/dL (13.0-16.5); Lymphocyte # 1.79 X10^3/ul (0.83-4.51); Lymphocyte % 23.6 % (19-41); Mean Corp Hgb Conc 33.6 g/dL (32-36); Mean Corpuscular Hgb 30.3 pg (27.0-32.0); Mean Corpuscular Volume 90.2 fL (80-94); Mean Platelet Vol. 12.3 fl (6.2-12.0); Monocyte# 0.56 X10^3/uL; Monocyte% 7.4 % (0-10); NRBC Flagged by Analyzer 0 % (0-5); Neutrophil # 4.91 X10^3/uL (2.7-7.7); Neutrophil % 64.7 % (47-70); Platelet Count 135 K/mm3 (150-450); RBC Distribution Width CV 14.2 % (11.6-14.6); RBC Distribution Width SD 46.9 fl (35.1-43.9); Red Blood Count 3.66 M/mm3 (4.6-6.2); White Blood Count 7.6 K/mm3 (4.4-11.0)
[2023-05-20 09:52] LABS: Anion Gap 6 (5-15); BUN 55 mg/dL (7-18); BUN/Creat Ratio 26.1 RATIO (10-20); Chloride 112 mmol/L (98-107); Creatinine, Serum 2.11 mg/dL (0.70-1.30); EST Glomerular Filtration Rate 32 mL/min (>60); Est Glom Filt Rate - Afr Amer 38 mL/min (>60); Glucose 210 mg/dL (74-106); Potassium 4.1 mmol/L (3.5-5.1); Sodium Level 141 mmol/L (136-145)
== END ==
LOC: OLS.WHLEAS 05:00
PROVIDERS: PCP Internal Medicine; Visit Provider Internal Medicine
DX: I50.33 Acute on chronic diastolic (congestive) heart failure (principal)
CPT/HCPCS: 36415; 80048; 85025

== ENCOUNTER → 2023-05-27 | Outpatient (REF) | payer MEDICARE, MEDICAID, SELFPAY ==
[2023-05-27 09:28] LABS: Absolute Lymphocyte Count 1.92 X10^3/uL (0.83-4.51); Absolute Neutrophil Count 4.3 X10^3/uL (2.0-7.7); Basophil# 0.04 X10^3/uL; Basophil% 0.6 % (0-1); Eosinophil# 0.18 X10^3/uL; Eosinophils% 2.6 % (0-5); Hematocrit 30.9 % (40-54); Hemoglobin 10.6 g/dL (13.0-16.5); Lymphocyte # 1.92 X10^3/ul (0.83-4.51); Lymphocyte % 27.4 % (19-41); Mean Corp Hgb Conc 34.3 g/dL (32-36); Mean Corpuscular Hgb 31.3 pg (27.0-32.0); Mean Corpuscular Volume 91.2 fL (80-94); Mean Platelet Vol. 11.8 fl (6.2-12.0); Monocyte# 0.51 X10^3/uL; Monocyte% 7.3 % (0-10); NRBC Flagged by Analyzer 0 % (0-5); Neutrophil % 61.2 % (47-70); Platelet Count 135 K/mm3 (150-450); RBC Distribution Width CV 14.6 % (11.6-14.6); RBC Distribution Width SD 48.4 fl (35.1-43.9); Red Blood Count 3.39 M/mm3 (4.6-6.2)
[2023-05-27 09:41] LABS: Anion Gap 7 (5-15); BUN 55 mg/dL (7-18); BUN/Creat Ratio 26.2 RATIO (10-20); Chloride 113 mmol/L (98-107); EST Glomerular Filtration Rate 32 mL/min (>60); Est Glom Filt Rate - Afr Amer 39 mL/min (>60); Glucose 150 mg/dL (74-106); Potassium 4.2 mmol/L (3.5-5.1); Sodium Level 143 mmol/L (136-145)
== END ==
LOC: OLS.WHLEAS 05:00
PROVIDERS: PCP Internal Medicine; Visit Provider Internal Medicine
DX: I50.33 Acute on chronic diastolic (congestive) heart failure (principal)
CPT/HCPCS: 36415; 80048; 85025

== ENCOUNTER → 2023-06-03 | Outpatient (REF) | payer MEDICARE, MEDICAID, SELFPAY ==
[2023-06-03 08:37] LABS: Absolute Lymphocyte Count 1.81 X10^3/uL (0.83-4.51); Absolute Neutrophil Count 3.9 X10^3/uL (2.0-7.7); Basophil# 0.02 X10^3/uL; Basophil% 0.3 % (0-1); Eosinophil# 0.16 X10^3/uL; Eosinophils% 2.5 % (0-5); Hemoglobin 10.3 g/dL (13.0-16.5); Lymphocyte # 1.81 X10^3/ul (0.83-4.51); Lymphocyte % 28.1 % (19-41); Mean Corp Hgb Conc 33.2 g/dL (32-36); Mean Corpuscular Volume 93.4 fL (80-94); Mean Platelet Vol. 11.4 fl (6.2-12.0); Monocyte# 0.53 X10^3/uL; Monocyte% 8.2 % (0-10); NRBC Flagged by Analyzer 0 % (0-5); Neutrophil # 3.88 X10^3/uL (2.7-7.7); Neutrophil % 60.3 % (47-70); Platelet Count 120 K/mm3 (150-450); RBC Distribution Width SD 50.7 fl (35.1-43.9); Red Blood Count 3.32 M/mm3 (4.6-6.2); White Blood Count 6.4 K/mm3 (4.4-11.0)
[2023-06-03 08:56] LABS: Anion Gap 3 (5-15); BUN 50 mg/dL (7-18); BUN/Creat Ratio 23.3 RATIO (10-20); Calcium,Total 8.9 mg/dL (8.5-10.1); Chloride 116 mmol/L (98-107); Creatinine, Serum 2.15 mg/dL (0.70-1.30); EST Glomerular Filtration Rate 31 mL/min (>60); Est Glom Filt Rate - Afr Amer 38 mL/min (>60); Glucose 160 mg/dL (74-106); Potassium 4.2 mmol/L (3.5-5.1); Sodium Level 145 mmol/L (136-145)
== END ==
LOC: OLS.WHLEAS 05:00
PROVIDERS: PCP Internal Medicine; Visit Provider Internal Medicine
DX: I50.33 Acute on chronic diastolic (congestive) heart failure (principal)
CPT/HCPCS: 36415; 80048; 85025

== ENCOUNTER 2023-08-21 16:08 | Inpatient (IN) | payer MEDICARE, MEDICAID, SELFPAY ==
[2023-08-21 16:09] VITALS: BP 99/58; PULSE 83; RESP 24; TEMP 37.4; O2SAT 98; BMI 27.3
--- NOTE | 2023-08-21 16:39 | EKG12_ITS ---
Test Reason : GENERAL Blood Pressure : / mmHG Vent. Rate : 081 BPM Atrial Rate : 000 BPM P-R Int : 000 ms QRS Dur : 070 ms QT Int : 360 ms P-R-T Axes : 000 022 -33 degrees QTc Int : 418 ms Atrial fibrillation Nonspecific ST and T wave abnormality Abnormal ECG Confirmed by TASHI BAKER, TANNER ([id number]), assistant editor GERALD COON ([id number]) on 08/23/2023 9:47:16 AM Referred By: Confirmed By:TANNER AKINS MD
--- NOTE | 2023-08-21 16:39 | EX.ED.DYSGE1 ---
HPI <ISAAC Dunham - Last Filed: 08/21/23 20:41> History of Present Illness Chief Complaint: General Illness Narrative Narrative: Patient is an 87-year-old male with history of dementia, hypothyroidism, atrial fibrillation who lives at a half-way presents to the emergency department for being more irritable, intermittent shortness of breath, hypoxia at the half-way however the patient does have oxygen as needed. Patient is alert and oriented x1, he denies any pain. Denies any fever or chills. PFSH <ISAAC Dunham - Last Filed: 08/21/23 20:41> [facility] Medical History Atherosclerotic heart disease of [place] coronary artery without angina pectoris Atrial fibrillation Bilateral carotid artery disease Bilateral enlargement of atria Dementia History of ventricular fibrillation (05/08/15) Hyperlipidemia Hypothyroidism Ischemic cardiomyopathy Nonrheumatic tricuspid (valve) insufficiency Patent foramen ovale Secondary pulmonary hypertension Home Medications aspirin 81 mg tablet,delayed release 81 mg PO DAILY@1700 heart health 05/04/15 [History Last Taken 05/20/20] atorvastatin 80 mg tablet 80 mg PO QHS cholesterol 11/23/16 [History Last Taken 05/20/20] omeprazole 20 mg capsule,delayed release 20 mg PO BID GERD 11/23/16 [History Last Taken 05/21/20] budesonide-formoterol HFA 160 mcg-4.5 mcg/actuation aerosol inhaler 2 puff inhalation BID breathing 11/24/16 [History Last Taken 05/21/20] atenolol 25 mg tablet 25 mg PO DAILY blood pressure 01/12/19 [History Last Taken 05/21/20] metformin 500 mg tablet 500 mg PO BID diabetes 01/12/19 [History Last Taken 05/21/20] insulin detemir U-100 100 unit/mL (3 mL) subcutaneous pen 16 units subcut QHS DIABETES 05/21/20 [History Last Taken 05/20/20] levothyroxine 88 mcg tablet 88 mcg PO DAILY THYROID 05/21/20 [History Last Taken 05/21/20] losartan 50 mg tablet 50 mg PO DAILY BP 05/21/20 [History Last Taken 05/21/20] memantine 28 mg capsule sprinkle,extended release 24hr 28 mg PO DAILY MEMORY 05/21/20 [History Last Taken 05/21/20] semaglutide 0.25 mg or 0.5 mg (2 mg/1.5 mL) subcutaneous pen injector 0.5 mg subcut FR 05/21/20 [History Last Taken 05/17/20] azithromycin 500 mg tablet 500 mg PO DAILY #1 TAB 05/23/20 [Rx Last Taken Unknown] warfarin 5 mg tablet 5 mg PO DAILY blood thinner ##0 07/03/20 [Rx Last Taken Unknown] Allergy/AdvReac Type Severity Reaction Status Date / Time Pork/Porcine Containing Allergy PT UNSURE Verified 08/21/23 16:15 Products OF REACTION Family History Mother CAD (coronary artery disease) Father Cancer Sister Multiple sclerosis CVA (cerebral vascular accident) Surgical History History of appendectomy History of bilateral cataract extraction (~2013) History of cardioversion (10/17/15) History of hemiarthroplasty of left shoulder History of left heart catheterization (04/27/15) History of right-sided carotid endarterectomy (05/16/14) History of total left knee replacement Stented coronary artery (10/17/15) Social History Smoking Status: Former smoker ROS <ISAAC Dunham - Last Filed: 08/21/23 20:41> ROS ED ROS Narrative Secondary to the patient's significant dementia, review of symptoms could not be completed EXAM <ISAAC Dunham - Last Filed: 08/21/23 20:41> Physical Exam Narrative Exam Narrative: Vital signs reviewed. Patient is alert, appears slightly tachypneic. Patient alert and orient x1. On 2 L nasal cannula oxygen the patient is between 95 to 97% on room air. HEET: Head normocephalic atraumatic, TMs clear bilaterally. Posterior pharynx is clear, moist mucous membranes. Nares clear bilaterally. Neck: Supple with no lymphadenopathy or tenderness. No signs of meningismus. Cardiac: Regular rate and rhythm no murmurs gallops or rubs, equal peripheral pulses bilaterally. Respiratory: Lung sounds show diminished breath sounds in the bases. No chest tenderness. When I did have the patient set up, patient had difficulty doing so, and after he was done he was more dyspneic, tachypneic Abdomen: Soft, nontender, nondistended. No abdominal bruit or pulsatile masses. No hepatosplenomegaly Extremities: No peripheral edema, no signs of gross trauma or deformity. Active full range of motion of all extremities. Neuro: Cranial nerves II through XII intact, no focal neurological deficits. Skin: Clean dry and intact with no rash, purpura, petechiae, vesicles or pustules. Backs/flank: No CVA tenderness, no midline spinal tenderness, no deformity. Psych: Normal mood and affect. No SI, HI or acute psychosis. Const Vital Signs: 08/21/23 16:09 08/21/23 16:14 08/21/23 16:48 Temperature 99.3 F H 99.3 F H Temperature Source Temporal Temporal Pulse Rate 83 83 Respiratory Rate 24 H 24 H Respiratory Pattern Tachypnea Blood Pressure 99/58 L 99/58 L Blood Pressure Mean 71 71 Pulse Ox 98 98 Oxygen Delivery Method Room Air Room Air 08/21/23 18:33 Temperature 98.6 F Temperature Source Temporal Pulse Rate 82 Respiratory Rate 20 H Respiratory Pattern Blood Pressure 92/60 Blood Pressure Mean 70 Pulse Ox 97 Oxygen Delivery Method Room Air <Dr. Alan Bloom DO - Last Filed: 08/21/23 21:18> Physical Exam Const Vital Signs: 08/21/23 16:09 08/21/23 16:14 08/21/23 16:48 Temperature 99.3 F H 99.3 F H Temperature Source Temporal Temporal Pulse Rate 83 83 Respiratory Rate 24 H 24 H Respiratory Pattern Tachypnea Blood Pressure 99/58 L 99/58 L Blood Pressure Mean 71 71 Pulse Ox 98 98 Oxygen Delivery Method Room Air Room Air 08/21/23 18:33 Temperature 98.6 F Temperature Source Temporal Pulse Rate 82 Respiratory Rate 20 H Respiratory Pattern Blood Pressure 92/60 Blood Pressure Mean 70 Pulse Ox 97 Oxygen Delivery Method Room Air MDM <ISAAC Dunham - Last Filed: 08/21/23 20:41> [facility] Lab Data Labs: Laboratory Results - last 24 hr 08/21/23 08/21/23 08/21/23 16:47 16:50 17:25 WBC 17.8 H RBC 3.73 L Hgb 11.3 L Hct 35.2 L MCV 94.4 H MCH 30.3 MCHC 32.1 RDW Std Deviation 49.8 H RDW Coeff of Markie 14.6 Plt Count 201 MPV 11.5 Immature Gran % (Auto) 1.100 H Neut % (Auto) 90.0 H Lymph % (Auto) 3.5 L [place] % (Auto) 4.5 Eos % (Auto) 0.4 Baso % (Auto) 0.5 Absolute Neuts (auto) 16.0 H Absolute Lymphs (auto) 0.62 L Nucleated RBC % 0 Sodium 135 L Potassium 4.9 Chloride 99 Carbon Dioxide 28.0 Anion Gap 8 BUN 71 H Creatinine 3.19 H Estim Creat Clear Calc 17.16 Est GFR (MDRD) Af Amer 24 L Est GFR (MDRD) Non-Af 20 L BUN/Creatinine Ratio 22.3 H Glucose 528 H* Lactic Acid 3.3 H* Calcium 9.2 Urine Color Yellow Urine Clarity Clear Urine pH 5.0 Ur Specific [place] 1.010 Urine Protein Negative Urine Glucose (UA) 1000 H Urine Ketones Negative Urine Occult Blood Negative Urine Nitrite Negative Urine Bilirubin Negative Urine Urobilinogen Normal Ur Leukocyte Esterase Negative Urine RBC 0 SEEN Urine WBC 0 SEEN Ur Squamous Epith Cells 0 SEEN Urine Bacteria 0 SEEN Urine Mucus 0 SEEN Acetone Level 08/21/23 17:50 WBC RBC Hgb Hct MCV MCH MCHC RDW Std Deviation RDW Coeff of Markie Plt Count MPV Immature Gran % (Auto) Neut % (Auto) Lymph % (Auto) [place] % (Auto) Eos % (Auto) Baso % (Auto) Absolute Neuts (auto) Absolute Lymphs (auto) Nucleated RBC % Sodium Potassium Chloride Carbon Dioxide Anion Gap BUN Creatinine Estim Creat Clear Calc Est GFR (MDRD) Af Amer Est GFR (MDRD) Non-Af BUN/Creatinine Ratio Glucose Lactic Acid Calcium Urine Color Urine Clarity Urine pH Ur Specific [place] Urine Protein Urine Glucose (UA) Urine Ketones Urine Occult Blood Urine Nitrite Urine Bilirubin Urine Urobilinogen Ur Leukocyte Esterase Urine RBC Urine WBC Ur Squamous Epith Cells Urine Bacteria Urine Mucus Acetone Level NEGATIVE Radiography Diagnostic Testing: Clinical Impression(s) from Imaging Studies Chest X-Ray 08/21/23 16:50 IMPRESSION: Mild cardiomegaly with central pulmonary venous congestion and bilateral hilar lymphadenopathy. Cannot rule out superimposed infection. Electronically Signed: Haris Cook MD at 18:22 EST , Chest/Abdomen/Pelvis CT 08/21/23 18:27 IMPRESSION: Multifocal groundglass, and reticulonodular opacities with interlobular septal thickening and right hilar lymphadenopathy. Differential includes atypical infection, lymphangitic carcinomatosis, sarcoidosis and other etiologies. Moderate age indeterminate compression deformity of L4, likely pathologic. Correlate with history of malignancy. Findings suspicious for cystitis. Correlate with urinalysis. Electronically Signed: Haris Cook MD at 20:08 EST , EKG EKG shows atrial fibrillation: Attestation: I personally reviewed and interpreted this EKG as follows: Comments: Atrial fibrillation with a rate of 81 bpm, QRS duration 70 ms, no acute ST elevation, no acute infarct noted. Treatment and Re-Evaluation :: Patient appears generally well, patient appears nontoxic, vital signs are stable. Presenting to the emergency department for being more irritable, looking to be short of breath. Differential diagnosis includes community-acquired pneumonia, influenza, COVID-19 of another virus, pulmonary embolus, pneumothorax. Patient will receive an EKG, patient will receive a chest x-ray concerning for any infiltrates. Laboratory values were completed, as well as a COVID-19 influenza as well as urinalysis. Patient's CBC shows a leukocytosis white blood count of 17.8, patient's chemistries show an acute kidney injury with a creatinine of 3.19, initial glucose was 528, lactic acid was 3.3. Patient's acetone level was negative, patient is not in any DKA at this time. Patient was given 500 cc normal saline bolus x2, as well as 10 units of subcu insulin. Patient's repeat blood sugar is 237. Patient's chest x-ray shows mild cardiomegaly with central pulm venous congestion and bilateral hilar lymphadenopathy. Cannot rule out superimposed infection. Site of this finding, urinalysis negative, patient's COVID-19 and influenza was negative, EKG showed atrial fibrillation, patient's history of this. Patient CTs of the chest abdomen pelvis shows multifocal groundglass and reticular nodule opacities within the interlobular septal thickening and right hilar lymphadenopathy. Differential clues atypical infection. At this time, I do believe the patient needs to be admitted to the hospital. I spoke with hospitalist, he will accept the patient. I did ask the hospitalist what antibiotics he would like me to start, he said that he will do it himself, not to start anything at this time. I spoke with the patient, the patient is agreement. Stable for admission <Dr. Alan Bloom, DO - Last Filed: 08/21/23 21:18> [facility] Narrative Medical decision making narrative: Patient appears generally well, patient appears nontoxic, vital signs are stable. Presenting to the emergency department for being more irritable, looking to be short of breath. Differential diagnosis includes community-acquired pneumonia, influenza, COVID-19 of another virus, pulmonary embolus, pneumothorax. Patient will receive an EKG, patient will receive a chest x-ray concerning for any infiltrates. Laboratory values were completed, as well as a COVID-19 influenza as well as urinalysis. Patient's CBC shows a leukocytosis white blood count of 17.8, patient's chemistries show an acute kidney injury with a creatinine of 3.19, initial glucose was 528, lactic acid was 3.3. Patient's acetone level was negative, patient is not in any DKA at this time. Patient was given 500 cc normal saline bolus x2, as well as 10 units of subcu insulin. Patient's repeat blood sugar is 237. Patient's chest x-ray shows mild cardiomegaly with central pulm venous congestion and bilateral hilar lymphadenopathy. Cannot rule out superimposed infection. Site of this finding, urinalysis negative, patient's COVID-19 and influenza was negative, EKG showed atrial fibrillation, patient's history of this. Patient CTs of the chest abdomen pelvis shows multifocal groundglass and reticular nodule opacities within the interlobular septal thickening and right hilar lymphadenopathy. Differential clues atypical infection. At this time, I do believe the patient needs to be admitted to the hospital. I spoke with hospitalist, he will accept the patient. I did ask the hospitalist what antibiotics he would like me to start, he said that he will do it himself, not to start anything at this time. I spoke with the patient, the patient is agreement. Stable for admission This patient was seen with a PA/ELECTRO MECHANICAL ENGINEER Individually assessed they patient including history and physical. I have reviewed everything on the chart that is available and agree with the documentation provided by the PA/ELECTRO MECHANICAL ENGINEER including discussion about the assessment, treatment plan, discussion, and return precautions. Agree with differential above. Patient initially sent in because he is extra fidgety recently. He is noted to have hyperglycemia. Blood work shows he is hyperglycemic but is not in DKA. There is no gap. White blood cell count of 17.8. Urinalysis was negative but chest x-ray suspicious pulmonary vascular congestion on my interpretation. Radiology interprets this and agrees and states that he cannot rule out infiltrate. Patient had CT of the chest abdomen pelvis hemoglobin cell count in fact he is a poor informant. High-sensitivity troponin within normal limits. Lactic acid 2.3. EKG interpreted by myself shows A-fib at a rate of 81 bpm without sign of ST elevation or depression. CT of the chest abdomen pelvis shows concern for pneumonia. Given the white count and lactic acid to have the patient admitted. He was given 2 boluses of normal saline. Discussed with hospitalist. Lab Data Labs: Laboratory Results - last 24 hr 08/21/23 08/21/23 08/21/23 16:47 16:50 17:25 WBC 17.8 H RBC 3.73 L Hgb 11.3 L Hct 35.2 L MCV 94.4 H MCH 30.3 MCHC 32.1 RDW Std Deviation 49.8 H RDW Coeff of Markie 14.6 Plt Count 201 MPV 11.5 Immature Gran % (Auto) 1.100 H Neut % (Auto) 90.0 H Lymph % (Auto) 3.5 L [place] % (Auto) 4.5 Eos % (Auto) 0.4 Baso % (Auto) 0.5 Absolute Neuts (auto) 16.0 H Absolute Lymphs (auto) 0.62 L Nucleated RBC % 0 Sodium 135 L Potassium 4.9 Chloride 99 Carbon Dioxide 28.0 Anion Gap 8 BUN 71 H Creatinine 3.19 H Estim Creat Clear Calc 17.16 Est GFR (MDRD) Af Amer 24 L Est GFR (MDRD) Non-Af 20 L BUN/Creatinine Ratio 22.3 H Glucose 528 H* Lactic Acid 3.3 H* Calcium 9.2 Urine Color Yellow Urine Clarity Clear Urine pH 5.0 Ur Specific [place] 1.010 Urine Protein Negative Urine Glucose (UA) 1000 H Urine Ketones Negative Urine Occult Blood Negative Urine Nitrite Negative Urine Bilirubin Negative Urine Urobilinogen Normal Ur Leukocyte Esterase Negative Urine RBC 0 SEEN Urine WBC 0 SEEN Ur Squamous Epith Cells 0 SEEN Urine Bacteria 0 SEEN Urine Mucus 0 SEEN Acetone Level 08/21/23 17:50 WBC RBC Hgb Hct MCV MCH MCHC RDW Std Deviation RDW Coeff of Markie Plt Count MPV Immature Gran % (Auto) Neut % (Auto) Lymph % (Auto) [place] % (Auto) Eos % (Auto) Baso % (Auto) Absolute Neuts (auto) Absolute Lymphs (auto) Nucleated RBC % Sodium Potassium Chloride Carbon Dioxide Anion Gap BUN Creatinine Estim Creat Clear Calc Est GFR (MDRD) Af Amer Est GFR (MDRD) Non-Af BUN/Creatinine Ratio Glucose Lactic Acid Calcium Urine Color Urine Clarity Urine pH Ur Specific [place] Urine Protein Urine Glucose (UA) Urine Ketones Urine Occult Blood Urine Nitrite Urine Bilirubin Urine Urobilinogen Ur Leukocyte Esterase Urine RBC Urine WBC Ur Squamous Epith Cells Urine Bacteria Urine Mucus Acetone Level NEGATIVE Radiography Diagnostic Testing: Clinical Impression(s) from Imaging Studies Chest X-Ray 08/21/23 16:50 IMPRESSION: Mild cardiomegaly with central pulmonary venous congestion and bilateral hilar lymphadenopathy. Cannot rule out superimposed infection. Electronically Signed: Haris Cook MD at 18:22 EST , Chest/Abdomen/Pelvis CT 08/21/23 18:27 IMPRESSION: Multifocal groundglass, and reticulonodular opacities with interlobular septal thickening and right hilar lymphadenopathy. Differential includes atypical infection, lymphangitic carcinomatosis, sarcoidosis and other etiologies. Moderate age indeterminate compression deformity of L4, likely pathologic. Correlate with history of malignancy. Findings suspicious for cystitis. Correlate with urinalysis. Electronically Signed: Haris Cook MD at 20:08 EST , Discharge Plan Dx/Rx/DC Orders Clinical Impression: Acute alteration in mental status, Acute hypotension, Leukocytosis, Sepsis, Pneumonia, Acidosis, lactic Disposition Disposition: Acute Care [facility]
[2023-08-21 16:48] VITALS: BP 99/58; PULSE 83; RESP 24; TEMP 37.4; O2SAT 98
--- NOTE | 2023-08-21 16:50 | RAD_ITS ---
INDICATION: cough EXAMINATION/TECHNIQUE: X-RAY - XR Chest 1 View COMPARISON: 05/21/2020. FINDINGS: Central pulmonary venous congestion. Tortuous and calcified thoracic aorta. The heart is mildly enlarged. Left-sided cardiac device. Bilateral hilar lymphadenopathy. No pleural effusion or pneumothorax. Degenerative changes of the thoracic spine and shoulders. Total left shoulder arthroplasty. RAD/Chest 1 View (Portable) IMPRESSION: Mild cardiomegaly with central pulmonary venous congestion and bilateral hilar lymphadenopathy. Cannot rule out superimposed infection. Electronically Signed: Haris Cook MD at 18:22 EST ,
[2023-08-21 17:03] LABS: Absolute Lymphocyte Count 0.62 X10^3/uL (0.83-4.51); Basophil# 0.08 X10^3/uL; Basophil% 0.5 % (0-1); Eosinophil# 0.07 X10^3/uL; Eosinophils% 0.4 % (0-5); Hematocrit 35.2 % (40-54); Hemoglobin 11.3 g/dL (13.0-16.5); Lymphocyte # 0.62 X10^3/ul (0.83-4.51); Lymphocyte % 3.5 % (19-41); Mean Corp Hgb Conc 32.1 g/dL (32-36); Mean Corpuscular Hgb 30.3 pg (27.0-32.0); Mean Corpuscular Volume 94.4 fL (80-94); Mean Platelet Vol. 11.5 fl (6.2-12.0); Monocyte% 4.5 % (0-10); NRBC Flagged by Analyzer 0 % (0-5); Platelet Count 201 K/mm3 (150-450); RBC Distribution Width CV 14.6 % (11.6-14.6); RBC Distribution Width SD 49.8 fl (35.1-43.9); Red Blood Count 3.73 M/mm3 (4.6-6.2); White Blood Count 17.8 K/mm3 (4.4-11.0)
[2023-08-21 17:17] LABS: Bacteria 0 SEEN /hpf (None Seen); Mucous, Urine 0 SEEN /hpf (<or=2+); Red Blood Cells-Urine 0 SEEN /hpf (0-5); Squamous Epithelial Cells - UA 0 SEEN /hpf (0-5); White Blood Cells 0 SEEN /hpf (0-5)
[2023-08-21 17:19] LABS: Color, Urine Yellow (Yellow); Glucose, Dipstick 1000 mg/dl (Normal); Ketone-Dipstick Negative (Negative); Leukocyte Esterase-Dipstick Negative /ul (Negative); Nitrite-Dipstick Negative (Negative); Occult Blood-Urine Negative /ul (Negative); Protein-Dipstick Negative (Negative); Urine Bilirubin Dipstick Negative (Negative); Urine Clarity Clear (Clear); Urine Urobilinogen Normal (Normal)
[2023-08-21] MEDS: 0.9% Normal Saline (500mL Bag) 500 ML 999 ML IV ×2 (17:30→22:00)
[2023-08-21 17:38] LABS: Anion Gap 8 (5-15); BUN 71 mg/dL (7-18); BUN/Creat Ratio 22.3 RATIO (10-20); Calcium,Total 9.2 mg/dL (8.5-10.1); Chloride 99 mmol/L (98-107); Creatinine, Serum 3.19 mg/dL (0.70-1.30); EST Glomerular Filtration Rate 20 mL/min (>60); Est Glom Filt Rate - Afr Amer 24 mL/min (>60); Estimated Creatinine Clearance 17.16 ml/min; Glucose 528 mg/dL (74-106); Potassium 4.9 mmol/L (3.5-5.1); Sodium Level 135 mmol/L (136-145)
[2023-08-21 18:06] LABS: Lactic Acid 3.3 mmol/L (0.4-1.9)
--- NOTE | 2023-08-21 18:27 | CT_ITS ---
INDICATION: hypoxia EXAMINATION: CT Chest Abdomen And Pelvis W/O Contrast Injection TECHNIQUE: Images were obtained of the chest, abdomen and pelvis without IV contrast. A radiation dose optimization technique was used for this scan. COMPARISON: 05/17/2028. FINDINGS: Evaluation of the solid organs and vascular structures is limited without intravenous contrast. Lungs: Multifocal groundglass, and reticulonodular opacities are most notably seen in the right upper lobe, right middle lobe, right lower lobe and left upper lobe. There is intralobular septal thickening. Mediastinum: The heart is mildly enlarged. There is right hilar lymphadenopathy. Moderate aortic arch and coronary artery calcifications. No obvious filling defect seen within the visualized pulmonary arteries. Left-sided cardiac device. Pleura: Unremarkable Liver: Unremarkable Gallbladder: Few small intraluminal stones seen. Spleen: Multiple splenic granulomas. Pancreas: Unremarkable Adrenal Glands: Unremarkable Kidneys: Mild atrophic bilaterally. Vasculature: Severe aortoiliac atherosclerotic disease. GI Tract: Scattered diverticula throughout the colon without evidence of inflammation. Lymphadenopathy: None Peritoneum: No ascites. Bladder: Mild circumferential wall thickening with subtle surrounding inflammatory changes. Reproductive organs: Unremarkable Bones/Soft tissues: There are diffuse degenerative changes of the spine. 4 mm anterolisthesis L5 on S1 with bilateral L5-S1 pars defects. Moderate age indeterminate compression deformity of L4. No retropulsion of fragments. CT/CT Chest, Abd, Pelvis WO Cont IMPRESSION: Multifocal groundglass, and reticulonodular opacities with interlobular septal thickening and right hilar lymphadenopathy. Differential includes atypical infection, lymphangitic carcinomatosis, sarcoidosis and other etiologies. Moderate age indeterminate compression deformity of L4, likely pathologic. Correlate with history of malignancy. Findings suspicious for cystitis. Correlate with urinalysis. Electronically Signed: Haris Cook MD at 20:08 EST ,
[2023-08-21 18:33] VITALS: BP 92/60; PULSE 82; RESP 20; TEMP 37; O2SAT 97
[2023-08-21] MEDS: Insulin Lispro 100 UNIT/ML INSULN.PEN 10 UNIT SC (18:36)
--- NOTE | 2023-08-21 20:36 | ED.RN ---
MAICOL PARHAMOR UPDATED BY THIS RN THAT HE WILL BE STAYING IN THE HOSPITAL. NO FURTHER QUESTIONS. MESSAGE LEFT FOR MEAGHAN TO CALL ED FOR UPDATE ON PATIENT
--- NOTE | 2023-08-21 20:46 | HP.PCM.HOS_ITS ---
HPI - General General Date of Service: 08/21/23 Chief Complaint: lethargy HPI Narrative BRIAN MONAHAN, is a 87 M who presents presents from long-term with lethargy. Blood pressure was in the 90s to 180s. Patient was on room air maintaining good saturations. White count came back at 17,800, lactic acid came back at 3.3 and glucose came at 528. Patient received a total of 1 L of IV fluids in the emergency room as well as 10 units of Humalog. Patient is demented and pleasantly confused and unable to provide any worthwhile history. [facility] Medical History Atherosclerotic heart disease of [place] coronary artery without angina pectoris Atrial fibrillation Bilateral carotid artery disease Bilateral enlargement of atria Dementia History of ventricular fibrillation (05/08/15) Hyperlipidemia Hypothyroidism Ischemic cardiomyopathy Nonrheumatic tricuspid (valve) insufficiency Patent foramen ovale Secondary pulmonary hypertension Home Medications aspirin 81 mg tablet,delayed release 81 mg PO DAILY@1700 heart health 05/04/15 [History Last Taken 05/20/20] atorvastatin 80 mg tablet 80 mg PO QHS cholesterol 11/23/16 [History Last Taken 05/20/20] omeprazole 20 mg capsule,delayed release 20 mg PO BID GERD 11/23/16 [History Last Taken 05/21/20] budesonide-formoterol HFA 160 mcg-4.5 mcg/actuation aerosol inhaler 2 puff inhalation BID breathing 11/24/16 [History Last Taken 05/21/20] atenolol 25 mg tablet 25 mg PO DAILY blood pressure 01/12/19 [History Last Taken 05/21/20] metformin 500 mg tablet 500 mg PO BID diabetes 01/12/19 [History Last Taken 05/21/20] insulin detemir U-100 100 unit/mL (3 mL) subcutaneous pen 16 units subcut QHS 05/21/20 [History Last Taken 05/20/20] levothyroxine 88 mcg tablet 88 mcg PO DAILY THYROID 05/21/20 [History Last Taken 05/21/20] losartan 50 mg tablet 50 mg PO DAILY BP 05/21/20 [History Last Taken 05/21/20] memantine 28 mg capsule sprinkle,extended release 24hr 28 mg PO DAILY MEMORY 05/21/20 [History Last Taken 05/21/20] semaglutide 0.25 mg or 0.5 mg (2 mg/1.5 mL) subcutaneous pen injector 0.5 mg subcut FR 05/21/20 [History Last Taken 05/17/20] amoxicillin 875 mg-potassium clavulanate 125 mg tablet 1 ea PO BID #10 tabs 05/23/20 [Rx Last Taken Unknown] azithromycin 500 mg tablet 500 mg PO DAILY #1 TAB 05/23/20 [Rx Last Taken Unknown] furosemide 20 mg tablet 20 mg PO DAILY FLUID ##0 05/23/20 [Rx Last Taken 05/21/20] warfarin 5 mg tablet 5 mg PO DAILY blood thinner ##0 07/03/20 [Rx Last Taken Unknown] Allergy/AdvReac Type Severity Reaction Status Date / Time Pork/Porcine Containing Allergy PT UNSURE Verified 08/21/23 16:15 Products OF REACTION Family History Mother CAD (coronary artery disease) Father Cancer Sister Multiple sclerosis CVA (cerebral vascular accident) Surgical History History of appendectomy History of bilateral cataract extraction (~2013) History of cardioversion (10/17/15) History of hemiarthroplasty of left shoulder History of left heart catheterization (04/27/15) History of right-sided carotid endarterectomy (05/16/14) History of total left knee replacement Stented coronary artery (10/17/15) Social History Smoking Status: Former smoker ROS ROS Narrative Unable to adequately obtain as patient is pleasantly confused. Vital Signs Vital Signs Vital Signs: 08/21/23 16:09 08/21/23 16:14 08/21/23 16:48 Temperature 37.4 C H 37.4 C H Temperature Source Temporal Temporal Pulse Rate 83 83 Respiratory Rate 24 H 24 H Respiratory Pattern Tachypnea Blood Pressure 99/58 L 99/58 L Blood Pressure Mean 71 71 Pulse Ox 98 98 Oxygen Delivery Method Room Air Room Air 08/21/23 18:33 Temperature 37.0 C Temperature Source Temporal Pulse Rate 82 Respiratory Rate 20 H Respiratory Pattern Blood Pressure 92/60 Blood Pressure Mean 70 Pulse Ox 97 Oxygen Delivery Method Room Air Weight Weight: 86.6 kg Body Mass Index (BMI) 27.3 Physical Exam Const Constitutional Narrative: Awake. Nontoxic. No respiratory distress. No conversational dyspnea. Orientation / Consciousness: confused HEENT normocephalic HEENT Narrative: Mucous membranes are dry Eyes EOMs intact bilaterally Eyes Narrative: No icterus Neck no lymphadenopathy and no JVD Resp normal respiratory effort, no retractions, no use of accessory muscles and clear to auscultation bilaterally Cardio regular rate, regular rhythm, S1 normal heart sound and S2 normal heart sound GI normal to inspection, nondistended, normoactive bowel sounds, soft to palpation, non-tender and non-distended Extremity normal to inspection and full ROM Neuro moves all extremities Sensorium / Orientation: awake Speech: speech normal Psych affect normal Results Lab / Micro Data Attestation: I reviewed the patient's lab results. 08/21/23 16:50 08/21/23 16:50 Labs: Laboratory Results - last 24 hr 08/21/23 16:47: Urine Color Yellow, Urine Clarity Clear, Urine pH 5.0, Ur Specific [place] 1.010, Urine Protein Negative, Urine Glucose (UA) 1000 H, Urine Ketones Negative, Urine Occult Blood Negative, Urine Nitrite Negative, Urine Bilirubin Negative, Urine Urobilinogen Normal, Ur Leukocyte Esterase Negative, Urine RBC 0 SEEN, Urine WBC 0 SEEN, Ur Squamous Epith Cells 0 SEEN, Urine Bacter ia 0 SEEN, Urine Mucus 0 SEEN 08/21/23 16:50: WBC 17.8 H, RBC 3.73 L, Hgb 11.3 L, Hct 35.2 L, MCV 94.4 H, MCH 30.3, MCHC 32.1, RDW Std Deviation 49.8 H, RDW Coeff of Markie 14.6, Plt Count 201, MPV 11.5, Immature Gran % (Auto) 1.100 H, Neut % (Auto) 90.0 H, Lymph % (Auto) 3.5 L, Schleicher % (Auto) 4.5, Eos % (Auto) 0.4, Baso % (Auto) 0.5, Absolute Neuts (auto) 16.0 H, Absolute Lymphs (auto) 0.62 L, Nucleated RBC % 0, Sodium 135 L, Potassium 4.9, Chloride 99, Carbon Dioxide 28.0, Anion Gap 8, BUN 71 H, Creatinine 3.19 H, Estim Creat Clear Calc 17.16, Est GFR (MDRD) Af Amer 24 L, Est GFR (MDRD) Non-Af 20 L, BUN/Creatinine Ratio 22.3 H, Glucose 528 H*, Calcium 9.2 08/21/23 17:25: Lactic Acid 3.3 H* 08/21/23 17:50: Acetone Level NEGATIVE Micro: Microbiology 08/21/23 16:45 Nasal Secretion SARS-CoV-2 & FLU Antigen (Rapid) - Final EKG Initial EKG: Attestation: I personally reviewed and interpreted this EKG as follows: Prior EKG tracings: available for review EKG Rhythm Intrepretation: Atrial Fibrillation Imagaing Radiology Impression Chest X-Ray 08/21/23 16:50 IMPRESSION: Mild cardiomegaly with central pulmonary venous congestion and bilateral hilar lymphadenopathy. Cannot rule out superimposed infection. Electronically Signed: Haris oCok MD at 18:22 EST , Chest/Abdomen/Pelvis CT 08/21/23 18:27 IMPRESSION: Multifocal groundglass, and reticulonodular opacities with interlobular septal thickening and right hilar lymphadenopathy. Differential includes atypical infection, lymphangitic carcinomatosis, sarcoidosis and other etiologies. Moderate age indeterminate compression deformity of L4, likely pathologic. Correlate with history of malignancy. Findings suspicious for cystitis. Correlate with urinalysis. Electronically Signed: Haris Cook MD at 20:08 EST , Assessment & Plan Assessment/Plan (1) Sepsis: PLAN: Secondary to pneumonia qSOFA of 3 with change mental status, systolic blood pressure less than 100 and respiratory rate greater than 22.SIRS 2 out of 4 for respiratory rate greater than 20 and white blood cells. 12. Patient received a liter of IV fluids in the emergency room. Will give patient additional IVF 1 liters on the floor. (2) Pneumonia: PLAN: Suspect pneumococcal Check urinary antigen Streptococcus and Legionella. Check sputum culture. Antibiotics with ceftriaxone and azithromycin. Pep therapy. (3) Acidosis, lactic: PLAN: Unclear significance. Was sent 3.3. Patient does take metformin which can skewed upwards. (4) DAVID (acute kidney injury): PLAN: Acute on chronic kidney disease stage IIIb. Suspect prerenal as patient does appear to be dehydrated. Hold furosemide, losartan. IV fluids and monitor. PLAN: Plan Chronic conditions * Dementia: Continue with memantine * Diabetes mellitus type 2: Continue with glargine. + Scale insulin. Hold metformin. * Chronic kidney disease stage IIIb: Has acute kidney injury right now. Holding certain medications this time. * GERD: Continue PPI * Hypothyroidism: Continue levothyroxine * Atrial fibrillation: Continue warfarin. Check INR. VTE prophylaxis: Not indicated final INR results. CODE STATUS: From the long-term, patient is DNR Comfort Care arrest no intubation. Charges/Coding Visit Charges Inpatient E&M: 80909 Init Hosp L3
[2023-08-21 21:07] VITALS: BP 101/27; PULSE 75; RESP 24
[2023-08-21] MEDS: Ceftriaxone 2 GM in 0.9% Normal Saline (50mL MB+) 50 ML IV (21:12)
[2023-08-21 21:31] LABS: Reflex Lactate? Y
[2023-08-21 21:36] VITALS: BMI 27.7
[2023-08-21 21:45] LABS: Lactic Acid 4.6 mmol/L (0.4-1.9)
[2023-08-21 21:46] VITALS: BP 108/39; PULSE 86; RESP 18; TEMP 37.3; O2SAT 94
[2023-08-21] MEDS: Ampicillin/Sulbactam 3 GM in 0.9% Normal Saline (100mL MB+) 100 ML IV (21:52)
[2023-08-21 22:47] LABS: Lactic Acid 2.5 mmol/L (0.4-1.9)
[2023-08-21 22:48] LABS: International Normalized Ratio 1.6; Prothrombin Time (Protime)PT. 18.8 SECONDS (11.7-14.9)
[2023-08-21] MEDS: 0.9% Normal Saline (1000mL) 1,000 ML 150 ML IV (23:03)
[2023-08-22] VITALS (12 sets, daily range): BP systolic 99–134; BP diastolic 29–79; PULSE 68–82; RESP 16–20; TEMP 36.6–37.1; O2SAT 92–99
[2023-08-22 00:02] LABS: Bedside Glucose 161 mg/dL (74-106)
[2023-08-22] MEDS: Atorvastatin Calcium 80 MG Tablet PO ×2 (00:05→20:45)
[2023-08-22] MEDS: Pantoprazole Sodium 20 MG Tablet PO ×2 (00:05→10:36)
[2023-08-22] MEDS: Insulin Glargine-YFGN 100 UNIT/ML Pen 6 UNIT SC ×2 (00:30→20:45)
[2023-08-22 01:01] LABS: Reflex Lactate? Y
[2023-08-22 01:57] LABS: Lactic Acid 1.2 mmol/L (0.4-1.9)
[2023-08-22 06:41] LABS: Absolute Lymphocyte Count 1.73 X10^3/uL (0.83-4.51); Absolute Neutrophil Count 8.7 X10^3/uL (2.0-7.7); Basophil# 0.05 X10^3/uL; Basophil% 0.4 % (0-1); Eosinophil# 0.24 X10^3/uL; Eosinophils% 2.1 % (0-5); Hematocrit 29.3 % (40-54); Hemoglobin 9.4 g/dL (13.0-16.5); Lymphocyte # 1.73 X10^3/ul (0.83-4.51); Lymphocyte % 15.1 % (19-41); Mean Corp Hgb Conc 32.1 g/dL (32-36); Mean Corpuscular Hgb 30.5 pg (27.0-32.0); Mean Corpuscular Volume 95.1 fL (80-94); Mean Platelet Vol. 11.2 fl (6.2-12.0); Monocyte% 6.1 % (0-10); NRBC Flagged by Analyzer 0 % (0-5); Neutrophil # 8.65 X10^3/uL (2.7-7.7); Neutrophil % 75.8 % (47-70); Platelet Count 132 K/mm3 (150-450); RBC Distribution Width CV 14.8 % (11.6-14.6); RBC Distribution Width SD 49.7 fl (35.1-43.9); Red Blood Count 3.08 M/mm3 (4.6-6.2); White Blood Count 11.4 K/mm3 (4.4-11.0)
[2023-08-22] MEDS: Midodrine HCl 5 MG Tablet 2.5 MG PO ×3 (06:52→20:47)
[2023-08-22] MEDS: Levothyroxine 88 MCG Tablet PO (06:52)
[2023-08-22 06:53] LABS: International Normalized Ratio 1.6; Prothrombin Time (Protime)PT. 18.8 SECONDS (11.7-14.9)
[2023-08-22] MEDS: Albuterol 2.5 MG/3 ML VIAL.NEB. INHALATION ×2 (07:05→19:15)
[2023-08-22] MEDS: Budesonide Respules 0.5 MG/2 ML AMPUL.NEB. INHALATION ×2 (07:06→19:15)
[2023-08-22 07:13] LABS: Bedside Glucose 156 mg/dL (74-106)
[2023-08-22 07:45] LABS: ALB/GLOB Ratio 0.6 RATIO (0.9-2.4); AST(SGOT) 13 U/L (15-37); Alanine Aminotransfer ALT/SGPT 13 U/L (16-61); Albumin, Serum 2.4 g/dL (3.2-5.0); Alkaline Phosphatase 85 U/L (45-117); Anion Gap 8 (5-15); BUN 61 mg/dL (7-18); Calcium,Total 8.3 mg/dL (8.5-10.1); Chloride 108 mmol/L (98-107); Creatinine, Serum 2.54 mg/dL (0.70-1.30); EST Glomerular Filtration Rate 26 mL/min (>60); Est Glom Filt Rate - Afr Amer 31 mL/min (>60); Globulin 4.3 g/dL (2.2-4.2); Glucose 175 mg/dL (74-106); Potassium 3.7 mmol/L (3.5-5.1); Protein, Total 6.7 g/dL (6.4-8.2); Sodium Level 141 mmol/L (136-145)
[2023-08-22] MEDS: Insulin Lispro 100 UNIT/ML INSULN.PEN SC ×5 (08:08→16:55)
--- NOTE | 2023-08-22 08:30 | PN.HOSP_ITS ---
Reason for Visit Reason for Visit: Lethargy Subjective Subjective Mr. Hinojosa is an 87-year-old white male who presented to the emergency department at [facility] on 08/21/2023 due to lethargy. Evidently he was at the nursing facility and they noted him to be more lethargic so they brought him into the emergency department. He was also noted to be more irritable, having intermittent shortness of breath, and hypoxic at the nursing facility however was stable on room air in the hospital. On presentation he was alert and oriented x 1. I am unclear what his baseline is as he does have a history of dementia. Vital signs on presentation showed a temperature of 37.4, respiratory was 24, heart rate was 83, blood pressure was 99/58 and oxygen saturations was 98% on room air. His CBC showed a leukocytosis with a white count of 17.8 and a left shift of 90% but was otherwise unremarkable. Coags were elevated however the patient is on apixaban at baseline. Chemistry panel showed slight hyponatremia with a serum BUN/creatinine above his baseline. Baseline serum creatinine appears to run between 2.1 and 2.5 and on presentation he was 3.19. He was also markedly hyperglycemic with a blood glucose of 528. Initial lactic acid was 3.3. LFTs are unremarkable. It does appear he may have chronic issues with hypotension as he is on midodrine and also takes metformin which could be the etiology of his lactic acidosis on presentation. Chest x-ray showed mild cardiomegaly with central pulmonary venous congestion and bilateral hilar adenopathy. CT of the chest abdomen pelvis demonstrated multifocal groundglass and reticular opacities with interlobular septal thickening and right hilar lymphadenopathy, age-indeterminate L4 compression fracture and possible cystitis. His UA is not suggestive of infection. He was admitted to the medical floor with sepsis due to pneumonia and was volume resuscitated with 2 L of IV fluids and placed on broad-spectrum antibiotics with cultures pending. Interestingly, he has not required any supplemental oxygen. His respiratory viral panel demonstrated rhinovirus. So I suspect his sepsis is related to a viral pneumonia however cultures are pending. Objective Data Objective Data Vital Signs: Vital Signs Temp Pulse Resp BP Pulse Ox O2 Del Method 98.7 F 82 18 117/45 L 93 Room Air 08/22/23 08:00 08/22/23 08:00 08/22/23 08:00 08/22/23 08:00 08/22/23 08:00 08/22/23 08:02 Oxygen Delivery Method Room Air Weight: 82.7 kg Body Mass Index (BMI) 27.7 Intake & Output: Intake and Output for Last 24 Hours 08/20/23 08/21/23 08/22/23 23:59 23:59 23:59 Intake Total 1362 / 1362 1595 / 1595 Output Total 250 / 250 Balance 1362 / 1362 1345 / 1345 Lab / Micro Data 08/22/23 05:55 08/22/23 05:55 Labs: Laboratory Results - last 24 hr 08/21/23 16:47: Urine Color Yellow, Urine Clarity Clear, Urine pH 5.0, Ur Specific [place] 1.010, Urine Protein Negative, Urine Glucose (UA) 1000 H, Urine Ketones Negative, Urine Occult Blood Negative, Urine Nitrite Negative, Urine Bilirubin Negative, Urine Urobilinogen Normal, Ur Leukocyte Esterase Negative, Urine RBC 0 SEEN, Urine WBC 0 SEEN, Ur Squamous Epith Cells 0 SEEN, Urine Bacteria 0 SEEN, Urine Mucus 0 SEEN 08/21/23 16:50: WBC 17.8 H, RBC 3.73 L, Hgb 11.3 L, Hct 35.2 L, MCV 94.4 H, MCH 30.3, MCHC 32.1, RDW Std Deviation 49.8 H, RDW Coeff of Markie 14.6, Plt Count 201, MPV 11.5, Immature Gran % (Auto) 1.100 H, Neut % (Auto) 90.0 H, Lymph % (Auto) 3.5 L, Gregory % (Auto) 4.5, Eos % (Auto) 0.4, Baso % (Auto) 0.5, Absolute Neuts (auto) 16.0 H, Absolute Lymphs (auto) 0.62 L, Nucleated RBC % 0, Sodium 135 L, Potassium 4.9, Chloride 99, Carbon Dioxide 28.0, Anion Gap 8, BUN 71 H, Creatinine 3.19 H, Estim Creat Clear Calc 17.16, Est GFR (MDRD) Af Amer 24 L, Est GFR (MDRD) Non-Af 20 L, BUN/Creatinine Ratio 22.3 H, Glucose 528 H*, Calcium 9.2 08/21/23 17:25: Lactic Acid 3.3 H* 08/21/23 17:50: Acetone Level NEGATIVE 08/21/23 20:55: Lactic Acid 4.6 H* 08/21/23 22:00: Lactic Acid 2.5 H* 08/21/23 22:31: PT 18.8 H, INR 1.6 08/21/23 23:43: POC Glucose 161 H 08/22/23 01:15: Lactic Acid 1.2 08/22/23 05:55: WBC 11.4 H, RBC 3.08 L, Hgb 9.4 L, Hct 29.3 L, MCV 95.1 H, MCH 30.5, MCHC 32.1, RDW Std Deviation 49.7 H, RDW Coeff of Markie 14.8 H, Plt Count 132 L, MPV 11.2, Immature Gran % (Auto) 0.500, Neut % (Auto) 75.8 H, Lymph % (Auto) 15.1 L, Gregory % (Auto) 6.1, Eos % (Auto) 2.1, Baso % (Auto) 0.4, Absolute Neuts (auto) 8.7 H, Absolute Lymphs (auto) 1.73, Nucleated RBC % 0, PT 18.8 H, INR 1.6, Sodium 141, Potassium 3.7, Chloride 108 H, Carbon Dioxide 25.0, Anion Gap 8, BUN 61 H, Creatinine 2.54 H, Estim Creat Clear Calc 20.20, Est GFR (MDRD) Af Amer 31 L, Est GFR (MDRD) Non-Af 26 L, BUN/Creatinine Ratio 24.0 H, Glucose 175 H, Calcium 8.3 L, Total Bilirubin 0.50, AST 13 L, ALT 13 L, Alkaline Phosphatase 85, Total Protein 6.7, Albumin 2.4 L, Globulin 4.3 H, Albumin/Globulin Ratio 0.6 L 08/22/23 06:47: POC Glucose 156 H Micro: Microbiology 08/22/23 00:35 Mucosa - Nasopharyngeal Respiratory Panel (PCR) - Final Rhinovirus 08/21/23 16:47 Urine Catheter - Catheter Legionella Antigen - Final 08/21/23 16:47 Urine Catheter - Catheter Streptococcus pneumoniae Antigen (M - Final 08/21/23 16:45 Nasal Secretion SARS-CoV-2 & FLU Antigen (Rapid) - Final Radiography Diagnostic Testing: Radiology Impression Chest X-Ray 08/21/23 16:50 IMPRESSION: Mild cardiomegaly with central pulmonary venous congestion and bilateral hilar lymphadenopathy. Cannot rule out superimposed infection. Electronically Signed: Haris Cook MD at 18:22 EST , Chest/Abdomen/Pelvis CT 08/21/23 18:27 IMPRESSION: Multifocal groundglass, and reticulonodular opacities with interlobular septal thickening and right hilar lymphadenopathy. Differential includes atypical infection, lymphangitic carcinomatosis, sarcoidosis and other etiologies. Moderate age indeterminate compression deformity of L4, likely pathologic. Correlate with history of malignancy. Findings suspicious for cystitis. Correlate with urinalysis. Electronically Signed: Haris Cook MD at 20:08 EST , Physical Exam Const alert, no apparent distress, average body habitus and well nourished Constitutional Narrative: Very pleasant, elderly, white male, sitting up in a chair, eating breakfast, on room air, oriented to self only, appears comfortable and nontoxic HEENT head/scalp atraumatic and moist oral mucous membranes HEENT Narrative: Patient significantly hard of hearing Head and Scalp: normocephalic Resp normal respiratory effort, no retractions and no use of accessory muscles Resp Narrative: Scattered end expiratory wheezes Auscultation: wheezes; Negative for rales or rhonchi Cardio regular rate, regular rhythm, S1 normal heart sound, S2 normal heart sound, no rub, no gallops and no clicks; Negative for no murmurs Cardio Narrative: 2 out of 6 systolic murmur loudest at right upper sternal border GI normal to inspection, nondistended, normoactive bowel sounds and soft to palpation Extremity no clubbing, cyanosis or edema Extremity Narrative: Pedal pulses are 2+ Neuro moves all extremities and no focal motor deficits Sensorium / Orientation: awake, alert and oriented to person; Negative for oriented to place or oriented to time Speech: speech normal Psych affect normal Psych Narrative: Pleasantly confused, eye contact is good, patient answers questions Assessment & Plan Assessment/Plan (1) DAVID (acute kidney injury): (2) Acidosis, lactic: (3) Pneumonia: (4) Sepsis: (5) Rhinovirus infection: (6) Acute hypotension: (7) Leukocytosis: (8) Acute alteration in mental status: (9) Hyperglycemia: (10) Acute on chronic anemia: PLAN: Plan Sepsis secondary to viral pneumonia +/- superimposed bacterial infection -All cultures are pending -Respiratory viral panel is positive for rhinovirus -Will continue ceftriaxone and azithromycin for now however I highly suspect this is most likely all viral -Await cultures to narrow -Currently on room air with oxygen saturations at 98% -Blood pressure improved with 2 L bolus -Lactate has resolved -Patient is wheezing on exam so we will add prednisone 40 mg daily Lactic acidosis -Normalized -Suspect related to acute rhinovirus infection possibly utilization of metformin in the setting of DAVID on CKD Acute on chronic hypotension -Patient is on midodrine chronically for hypotension however blood pressures appear to be lower despite getting midodrine -Seems to be fluid responsive and now back to baseline -Will continue midodrine DAVID on CKD stage IIIb -IV -Baseline serum creatinine appears to run between 2.1 and 2.5 -Serum creatinine on admission was 3.14 -Much improved with IV fluid administration and serum creatinine is now back to 2.54 -We will hold on further IV fluids at this time due to history of ischemic cardiomyopathy and watch closely -Avoid nephrotoxins as able -Continue to hold home torsemide -GFR is less than 45 so we will discontinue Jardiance Acute on chronic anemia -Baseline hemoglobin appears to run between 10 and 11 -Hemoglobin down to 9.4 this morning however I suspect this is dilutional with fluids he had received on presentation -No signs of acute bleeding -Will repeat CBC in a.m. and if further drop will do further investigation however I do anticipate that this will stabilize DM-2 -Patient was markedly hyperglycemic on presentation with blood sugar greater than 500 -Fasting sugar this morning is 175 -Will continue subcu Lantus 6 units at at bedtime -SSI -Accu-Cheks as ordered -Cardiac/carb controlled diet once p.o. diet has been approved -Discontinue Jardiance due to GFR less than 45 and if patient remains less than 45 would discontinue completely at discharge Altered mental status secondary to toxic/metabolic encephalopathy -Like related to get acute infection -Was only alert and oriented to self on admission -Should improve with treatment of infection and improvement in blood pressure and renal function COPD -Continue home inhalers -DuoNebs and albuterol -Remote history of tobacco abuse Chronic thrombocytopenia -Platelet count appears to run between 120 and 150,000 -Currently 102-32,000 -Continue to monitor Neuropathy -Okay to continue home gabapentin History of ischemic cardiomyopathy/HTN/HPL -Will continue home medications as appropriate with other medical conditions -Continue home aspirin GERD -Continue PPI Hypothyroidism -Continue home levothyroxine Paroxysmal atrial fibrillation -Continue with Eliquis -Continue home beta-kelsey Dementia-type unknown -Continue home memantine DVT prophylaxis -Patient is fully anticoagulated with apixaban will continue CODE STATUS -DNR CCA with no intubation Charges/Coding Visit Charges Inpatient E&M: 26267 Subs Hosp L2
[2023-08-22] MEDS: Calcium Carbonate 500 MG Tablet PO (10:35)
[2023-08-22] MEDS: Cholecalciferol (VIT D3) 25 MCG TABLET (1,000 UNITS) 50 MCG PO (10:35)
[2023-08-22] MEDS: Memantine Hydrochloride 10 MG Tablet PO ×2 (10:36→20:44)
[2023-08-22] MEDS: APIXABAN 2.5 MG TABLET (WCH) PO ×2 (10:36→20:44)
[2023-08-22] MEDS: Multivitamins,Ther W-Minerals Tablet 1 TABLET PO (10:36)
[2023-08-22] MEDS: Atenolol 25 MG Tablet PO (10:36)
[2023-08-22] MEDS: Ascorbic Acid 500 MG Tablet PO (10:37)
[2023-08-22 11:21] LABS: Bedside Glucose 152 mg/dL (74-106)
[2023-08-22 12:04] LABS: Bedside Glucose 141 mg/dL (74-106)
[2023-08-22] MEDS: predniSONE 20 MG Tablet 40 MG PO (12:25)
[2023-08-22 16:36] LABS: Bedside Glucose 267 mg/dL (74-106)
[2023-08-22] MEDS: Aspirin E.C. 81 MG Tablet PO (16:56)
[2023-08-22 20:39] LABS: Bedside Glucose 360 mg/dL (74-106)
[2023-08-22 20:39] LABS: Bedside Glucose 354 mg/dL (74-106)
[2023-08-22] MEDS: Ceftriaxone 2 GM in 0.9% Normal Saline (50mL MB+) 50 ML IV (20:41)
[2023-08-22] MEDS: Azithromycin 500 MG in Dextrose 5%-Water (250mL Bag) 250 ML 250 MG IV (22:35)
[2023-08-22 22:43] LABS: Bedside Glucose 363 mg/dL (74-106)
[2023-08-23] VITALS (10 sets, daily range): BP systolic 111–133; BP diastolic 33–53; PULSE 60–80; RESP 18–19; TEMP 36.6–36.8; O2SAT 82–100
[2023-08-23] MEDS: Insulin Lispro 100 UNIT/ML INSULN.PEN SC ×5 (06:11→17:05)
[2023-08-23] MEDS: Midodrine HCl 5 MG Tablet 2.5 MG PO ×3 (06:13→21:13)
[2023-08-23] MEDS: Levothyroxine 88 MCG Tablet PO (06:13)
[2023-08-23 06:33] LABS: Bedside Glucose 316 mg/dL (74-106)
[2023-08-23 06:37] LABS: Absolute Lymphocyte Count 0.82 X10^3/uL (0.83-4.51); Absolute Neutrophil Count 8.2 X10^3/uL (2.0-7.7); Basophil# 0.02 X10^3/uL; Basophil% 0.2 % (0-1); Hematocrit 30.8 % (40-54); Lymphocyte # 0.82 X10^3/ul (0.83-4.51); Lymphocyte % 8.8 % (19-41); Mean Corp Hgb Conc 32.5 g/dL (32-36); Mean Corpuscular Hgb 30.8 pg (27.0-32.0); Mean Corpuscular Volume 94.8 fL (80-94); Mean Platelet Vol. 12.2 fl (6.2-12.0); Monocyte# 0.29 X10^3/uL; Monocyte% 3.1 % (0-10); NRBC Flagged by Analyzer 0 % (0-5); Neutrophil # 8.16 X10^3/uL (2.7-7.7); Platelet Count 141 K/mm3 (150-450); RBC Distribution Width CV 14.6 % (11.6-14.6); RBC Distribution Width SD 49.5 fl (35.1-43.9); Red Blood Count 3.25 M/mm3 (4.6-6.2); White Blood Count 9.4 K/mm3 (4.4-11.0)
[2023-08-23] MEDS: Budesonide Respules 0.5 MG/2 ML AMPUL.NEB. INHALATION ×2 (06:59→19:06)
[2023-08-23] MEDS: Albuterol 2.5 MG/3 ML VIAL.NEB. INHALATION ×3 (06:59→19:06)
[2023-08-23 07:20] LABS: Anion Gap 10 (5-15); BUN 64 mg/dL (7-18); BUN/Creat Ratio 26.9 RATIO (10-20); Calcium,Total 8.7 mg/dL (8.5-10.1); Chloride 105 mmol/L (98-107); Creatinine, Serum 2.38 mg/dL (0.70-1.30); EST Glomerular Filtration Rate 28 mL/min (>60); Est Glom Filt Rate - Afr Amer 33 mL/min (>60); Estimated Creatinine Clearance 21.55 ml/min; Glucose 357 mg/dL (74-106); Potassium 4.5 mmol/L (3.5-5.1); Sodium Level 139 mmol/L (136-145)
[2023-08-23] MEDS: Pantoprazole Sodium 20 MG Tablet PO (08:01)
[2023-08-23] MEDS: Multivitamins,Ther W-Minerals Tablet 1 TABLET PO (08:02)
[2023-08-23] MEDS: Ascorbic Acid 500 MG Tablet PO (08:03)
[2023-08-23] MEDS: Cholecalciferol (VIT D3) 25 MCG TABLET (1,000 UNITS) 50 MCG PO (08:04)
[2023-08-23] MEDS: Atenolol 25 MG Tablet PO (08:04)
[2023-08-23] MEDS: Memantine Hydrochloride 10 MG Tablet PO ×2 (08:05→21:14)
[2023-08-23] MEDS: APIXABAN 2.5 MG TABLET (WCH) PO ×2 (08:05→21:13)
[2023-08-23] MEDS: Calcium Carbonate 500 MG Tablet PO (08:05)
[2023-08-23] MEDS: predniSONE 20 MG Tablet 40 MG PO (08:06)
--- NOTE | 2023-08-23 10:01 | CASEMGMT ---
Social Work SW called [facility], pt is there skilled. SW called daughter Elyssa who is POA, she confirms plan is for pt to return to [facility] at discharge, list of SNFs not needed at this time as per daughter. SW explained we will need to get a new precert and it is anticipated pt will be able to return today and tomorrow. Daughter states understanding. As per physician, pt is A&Ox1 at this time. SW asked d/c digital sales planner Moira to send updates to [facility]. KM Pringle
--- NOTE | 2023-08-23 10:18 | CASEMGMT ---
Discharge Planning Updates sent to [facility] Moira Velarde, Discharge Planning Asst.
--- NOTE | 2023-08-23 10:37 | CASEMGMT ---
Discharge Planning Msg sent via [facility] to [facility] to start precert. Moira Velarde, Discharge Planning Asst.
[2023-08-23 12:22] LABS: Bedside Glucose 389 mg/dL (74-106)
--- NOTE | 2023-08-23 12:57 | PCM.PN.HOSP ---
Reason for Visit Reason for Visit: Lethargy Subjective Subjective Patient has no complaints today. No issues overnight. Is on room air at rest and with exertion with no difficulty. Unfortunately, patient needs pre-CERT prior to return back to his nursing facility so we will continue care here until we receive pre-CERT. It was started today. Objective Data Objective Data Vital Signs: Vital Signs Temp Pulse Resp BP Pulse Ox O2 Del Method O2 Flow Rate 97.8 F 72 18 132/44 H 98 Room Air 0 08/23/23 07:56 08/23/23 07:56 08/23/23 07:56 08/23/23 07:56 08/23/23 11:24 08/23/23 08:13 08/23/23 11:24 Oxygen Flow Rate (L/min) [ 4 AMBULATING with Oxygen #3] Oxygen Flow Rate (L/min) [ 3 AMBULATING with Oxygen #2] Oxygen Flow Rate (L/min) [ 2 AMBULATING with Oxygen #1] Oxygen Flow Rate (L/min) [ 0 AMBULATING on Room Air] Oxygen Delivery Method Room Air Weight: 82.7 kg Body Mass Index (BMI) 27.7 Intake & Output: Intake and Output for Last 24 Hours 08/21/23 08/22/23 08/23/23 23:59 23:59 23:59 Intake Total 1362 / 1362 1900 / 1900 Output Total 900 / 900 100 / 100 Balance 1362 / 1362 1000 / 1000 -100 / -100 Lab / Micro Data 08/23/23 05:50 08/23/23 05:50 Labs: Laboratory Results - last 24 hr 08/21/23 20:22: POC Glucose 267 H 08/22/23 16:52: POC Glucose 354 H 08/22/23 16:53: POC Glucose 360 H 08/22/23 20:44: POC Glucose 363 H 08/23/23 05:50: WBC 9.4, RBC 3.25 L, Hgb 10.0 L, Hct 30.8 L, MCV 94.8 H, MCH 30.8, MCHC 32.5, RDW Std Deviation 49.5 H, RDW Coeff of Markie 14.6, Plt Count 141 L, MPV 12.2 H, Immature Gran % (Auto) 0.900, Neut % (Auto) 87.0 H, Lymph % (Auto) 8.8 L, [place] % (Auto) 3.1, Eos % (Auto) 0.0, Baso % (Auto) 0.2, Absolute Neuts (auto) 8.2 H, Absolute Lymphs (auto) 0.82 L, Nucleated RBC % 0, Sodium 139, Potassium 4.5, Chloride 105, Carbon Dioxide 24.0, Anion Gap 10, BUN 64 H, Creatinine 2.38 H, Estim Creat Clear Calc 21.55, Est GFR (MDRD) Af Amer 33 L, Est GFR (MDRD) Non-Af 28 L, BUN/Creatinine Ratio 26.9 H, Glucose 357 H, Calcium 8.7 08/23/23 06:10: POC Glucose 316 H 08/23/23 12:00: POC Glucose 389 H Micro: Microbiology 08/22/23 03:30 Sputum, Expectorated/Coughed Gram Stain - Final 08/22/23 03:30 Sputum, Expectorated/Coughed Respiratory Culture - Preliminary Appears to be normal respiratory mikala. Further studies to follow. 08/22/23 00:35 Mucosa - Nasopharyngeal Respiratory Panel (PCR) - Final Rhinovirus 08/21/23 16:47 Urine Catheter - Catheter Legionella Antigen - Final 08/21/23 16:47 Urine Catheter - Catheter Streptococcus pneumoniae Antigen (M - Final 08/21/23 16:45 Nasal Secretion SARS-CoV-2 & FLU Antigen (Rapid) - Final Physical Exam Const alert, no apparent distress, average body habitus and well nourished Constitutional Narrative: Very pleasant, elderly, white male, sitting up in bed, watching television, on room air, oriented to self only, appears comfortable and nontoxic Orientation / Consciousness: confused HEENT normocephalic, head/scalp atraumatic and moist oral mucous membranes HEENT Narrative: Mallampati 2-3, no thrush, dentition is fair for age Resp normal respiratory effort, no retractions, no use of accessory muscles and clear to auscultation bilaterally Resp Narrative: Few scattered end expiratory wheezes however improved since yesterday Auscultation: wheezes; Negative for rales or rhonchi Cardio regular rate, regular rhythm, S1 normal heart sound, S2 normal heart sound, no rub, no gallops and no clicks; Negative for no murmurs Cardio Narrative: 2 out of 6 systolic murmur loudest at right upper sternal border GI normal to inspection, nondistended, normoactive bowel sounds, soft to palpation and non-tender Extremity no clubbing, cyanosis or edema Extremity Narrative: Pedal pulses are 2+ Neuro moves all extremities and no focal motor deficits Sensorium / Orientation: awake, alert and oriented to person; Negative for oriented to place or oriented to time Speech: speech normal Psych affect normal Psych Narrative: Pleasantly confused, eye contact is good, patient answers questions Assessment & Plan Assessment/Plan (1) DAVID (acute kidney injury): (2) Acidosis, lactic: (3) Pneumonia: (4) Sepsis: (5) Rhinovirus infection: (6) Acute hypotension: (7) Leukocytosis: (8) Acute alteration in mental status: (9) Hyperglycemia: (10) Acute on chronic anemia: PLAN: Plan Sepsis secondary to viral pneumonia +/- superimposed bacterial infection -Sputum culture is oral mikala -Blood cultures remain pending -Respiratory viral panel is positive for rhinovirus -Will continue ceftriaxone and azithromycin for now however I highly suspect this is most likely all viral -Await cultures to narrow or discontinue -Currently on room air and remains on room air with exertion showing no signs of desaturation -Continue prednisone 40 mg daily Lactic acidosis -Normalized -Suspect related to acute rhinovirus infection possibly utilization of metformin in the setting of DAVID on CKD Acute on chronic hypotension -Patient is on midodrine chronically for hypotension however blood pressures appear to be lower despite getting midodrine -Seems to be fluid responsive and now back to baseline -Will continue midodrine 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 and if further drop will do further investigation however I do anticipate that this will stabilize DM-2 -Patient was markedly hyperglycemic on presentation with blood sugar greater than 500 -Blood sugars are elevated with steroid use -Will continue subcu Lantus but increase from 6 units at at bedtime to 12 units nightly -SSI -Accu-Cheks as ordered -Cardiac/carb controlled diet once p.o. diet has been approved -Discontinue Jardiance due to GFR less than 45 and if patient remains less than 45 would discontinue completely at discharge Altered mental status secondary to toxic/metabolic encephalopathy -Like related to get acute infection -Was only alert and oriented to self on admission -Should improve with treatment of infection and improvement in blood pressure and renal function COPD -Continue home inhalers -DuoNebs and albuterol -Remote history of tobacco abuse Chronic thrombocytopenia -Platelet count appears to run between 120 and 150,000 -Currently 141,000 -Continue to monitor Neuropathy -Okay to continue home gabapentin History of ischemic cardiomyopathy/HTN/HPL -Will continue home medications as appropriate with other medical conditions -Continue home aspirin GERD -Continue PPI Hypothyroidism -Continue home levothyroxine Paroxysmal atrial fibrillation -Continue with Eliquis -Continue home beta-kelsey Dementia-type unknown -Continue home memantine DVT prophylaxis -Patient is fully anticoagulated with apixaban will continue CODE STATUS -DNR CCA with no intubation Charges/Coding Visit Charges Inpatient E&M: 22538 Subs Hosp L2
[2023-08-23] MEDS: Aspirin E.C. 81 MG Tablet PO (16:16)
--- NOTE | 2023-08-23 16:23 | NURSING ---
Blood sugar checked and it is 471. Lab called to get lab back up. This RN will see what Dr. Whaley wants to do for his sliding scale.
--- NOTE | 2023-08-23 16:36 | CASEMGMT ---
Discharge Planning [facility] has obtain auth. SW updated. Moira Velarde, Discharge Planning Asst.
[2023-08-23 17:02] LABS: Glucose 544 mg/dL (74-106)
[2023-08-23] MEDS: Insulin Lispro 100 UNIT/ML INSULN.PEN 8 UNIT SC (17:05)
[2023-08-23 17:25] LABS: Bedside Glucose 471 mg/dL (74-106)
[2023-08-23 18:38] LABS: Bedside Glucose 492 mg/dL (74-106)
[2023-08-23] MEDS: Insulin Lispro 100 UNIT/ML INSULN.PEN 22 UNIT SC (18:57)
[2023-08-23 20:45] LABS: Bedside Glucose 463 mg/dL (74-106)
[2023-08-23] MEDS: Insulin Lispro 100 UNIT/ML INSULN.PEN 15 UNIT SC (20:59)
[2023-08-23] MEDS: Insulin Glargine-YFGN 100 UNIT/ML Pen 35 UNIT SC (21:00)
[2023-08-23] MEDS: Potassium Chloride Oral Tablet 20 MEQ 40 MEQ PO (21:13)
[2023-08-23] MEDS: Atorvastatin Calcium 80 MG Tablet PO (21:14)
[2023-08-23] MEDS: Ceftriaxone 2 GM in 0.9% Normal Saline (50mL MB+) 50 ML IV (21:16)
[2023-08-23] MEDS: 0.9 % NaCl (Sterile) Posiflush 10 mL IV (21:17)
[2023-08-23] MEDS: Azithromycin 500 MG in Dextrose 5%-Water (250mL Bag) 250 ML 250 MG IV (21:57)
[2023-08-23 22:15] LABS: Bedside Glucose 381 mg/dL (74-106)
[2023-08-24] VITALS (8 sets, daily range): BP systolic 113–168; BP diastolic 33–54; PULSE 57–71; RESP 16–18; TEMP 36.6–36.8; O2SAT 95–99
[2023-08-24] MEDS: Midodrine HCl 5 MG Tablet 2.5 MG PO ×3 (06:19→21:22)
[2023-08-24] MEDS: Levothyroxine 88 MCG Tablet PO (06:19)
[2023-08-24 06:46] LABS: Bedside Glucose 114 mg/dL (74-106)
[2023-08-24] MEDS: Budesonide Respules 0.5 MG/2 ML AMPUL.NEB. INHALATION ×2 (07:27→18:50)
[2023-08-24] MEDS: Ipratropium/Albuterol Sulfate 3 ML AMPUL.NEB INHALATION (07:27)
[2023-08-24 07:30] LABS: Absolute Lymphocyte Count 1.33 X10^3/uL (0.83-4.51); Basophil# 0.03 X10^3/uL; Basophil% 0.2 % (0-1); Eosinophil# 0.02 X10^3/uL; Eosinophils% 0.2 % (0-5); Hematocrit 30.5 % (40-54); Hemoglobin 9.9 g/dL (13.0-16.5); Lymphocyte # 1.33 X10^3/ul (0.83-4.51); Mean Corp Hgb Conc 32.5 g/dL (32-36); Mean Corpuscular Hgb 30.2 pg (27.0-32.0); Mean Platelet Vol. 11.5 fl (6.2-12.0); Monocyte# 0.61 X10^3/uL; Monocyte% 5.1 % (0-10); NRBC Flagged by Analyzer 0 % (0-5); Neutrophil # 9.98 X10^3/uL (2.7-7.7); Neutrophil % 82.8 % (47-70); Platelet Count 153 K/mm3 (150-450); RBC Distribution Width CV 14.6 % (11.6-14.6); RBC Distribution Width SD 49.1 fl (35.1-43.9); Red Blood Count 3.28 M/mm3 (4.6-6.2); White Blood Count 12.1 K/mm3 (4.4-11.0)
[2023-08-24 07:55] LABS: Anion Gap 5 (5-15); BUN 60 mg/dL (7-18); BUN/Creat Ratio 29.7 RATIO (10-20); Calcium,Total 8.9 mg/dL (8.5-10.1); Chloride 111 mmol/L (98-107); Creatinine, Serum 2.02 mg/dL (0.70-1.30); EST Glomerular Filtration Rate 33 mL/min (>60); Est Glom Filt Rate - Afr Amer 40 mL/min (>60); Glucose 110 mg/dL (74-106); Sodium Level 141 mmol/L (136-145)
--- NOTE | 2023-08-24 08:00 | CASEMGMT ---
Social Work - Phyllisrte Note. Notified physician that received authorization for patient to to to SNF. Patient to be discharged today, back to [facility] where patient has been receiving skilled level of care. No new convalescent exemption or PASRR needed, due to lack of break to the community. Discharge program manager environmental planning, Moira Francis will assist with final arrangements once orders are in place. Plan: Discharge skilled level of care, returning to [facility]. -NITHIN Ansari
[2023-08-24] MEDS: Ascorbic Acid 500 MG Tablet PO (10:21)
[2023-08-24] MEDS: Memantine Hydrochloride 10 MG Tablet PO ×2 (10:21→21:14)
[2023-08-24] MEDS: Cholecalciferol (VIT D3) 25 MCG TABLET (1,000 UNITS) 50 MCG PO (10:21)
[2023-08-24] MEDS: Multivitamins,Ther W-Minerals Tablet 1 TABLET PO (10:22)
[2023-08-24] MEDS: Pantoprazole Sodium 20 MG Tablet PO (10:22)
[2023-08-24] MEDS: Atenolol 25 MG Tablet PO (10:22)
[2023-08-24] MEDS: Calcium Carbonate 500 MG Tablet PO (10:22)
[2023-08-24] MEDS: APIXABAN 2.5 MG TABLET (WCH) PO ×2 (10:22→21:22)
[2023-08-24 10:47] LABS: Bedside Glucose 207 mg/dL (74-106)
[2023-08-24] MEDS: Insulin Lispro 100 UNIT/ML INSULN.PEN SC ×4 (11:45→16:29)
--- NOTE | 2023-08-24 13:30 | PCM.DC.SUM ---
Providers Date of Admission: 08/21/23 Date of Discharge: 08/24/23 Primary Care Physician: Dr. Vic Campbell MD Reason For Visit: PNEUMONIA Diagnosis Discharge Diagnosis (1) DAVID (acute kidney injury): Status: Acute Code(s): N17.9 - Acute kidney failure, unspecified (2) Acidosis, lactic: Status: Acute Code(s): E87.20 - Acidosis, unspecified (3) Pneumonia: Status: Acute Code(s): J18.9 - Pneumonia, unspecified organism (4) Sepsis: Status: Acute Code(s): A41.9 - Sepsis, unspecified organism (5) Rhinovirus infection: Status: Acute Code(s): B34.8 - Other viral infections of unspecified site (6) Acute hypotension: Status: Acute Code(s): I95.9 - Hypotension, unspecified (7) Leukocytosis: Status: Acute Code(s): D72.829 - Elevated white blood cell count, unspecified (8) Acute alteration in mental status: Status: Acute Code(s): R41.82 - Altered mental status, unspecified (9) Hyperglycemia: Status: Acute Code(s): R73.9 - Hyperglycemia, unspecified (10) Acute on chronic anemia: Status: Chronic Code(s): D64.9 - Anemia, unspecified Medications at Discharge Home Medications aspirin 81 mg tablet,delayed release 81 mg PO DAILY@1700 [facility] 05/04/15 atorvastatin 80 mg tablet 20 mg PO QHS cholesterol 11/23/16 omeprazole 20 mg capsule,delayed release 20 mg PO DAILY GERD 11/23/16 budesonide-formoterol HFA 160 mcg-4.5 mcg/actuation aerosol inhaler 2 puff inhalation BID breathing 11/24/16 atenolol 25 mg tablet 12.5 mg PO DAILY blood pressure 01/12/19 levothyroxine 88 mcg tablet 88 mcg PO DAILY THYROID 05/21/20 memantine 28 mg capsule sprinkle,extended release 24hr 28 mg PO DAILY MEMORY 05/21/20 albuterol sulfate 2.5 mg/3 mL (0.083 %) solution for nebulization 2.5 mg inhalation Q4H PRN shortness of breath or wheezing 08/21/23 albuterol sulfate 90 mcg/actuation aerosol inhaler 2 puff inhalation Q4H PRN shortness of breath or wheezing 08/21/23 apixaban 2.5 mg tablet (Eliquis) 2.5 mg PO Q12H blood thinner 08/21/23 ascorbic acid (vitamin C) 500 mg tablet (Vitamin C) 0.5 g PO DAILY iron pill 08/21/23 calcium citrate 200 mg (950 mg) tablet 200 mg PO DAILY vitamin 08/21/23 cholecalciferol (vitamin D3) 50 mcg (2,000 unit) capsule 50 mcg PO DAILY vitamin 08/21/23 dapagliflozin propanediol 5 mg tablet (Farxiga) 5 mg PO DAILY diabetic 08/21/23 fluticasone furoate 100 mcg-vilanterol 25 mcg/dose inhalation powder (Breo Ellipta) 1 inh inhalation DAILY copd 08/21/23 gabapentin 300 mg capsule 300 mg PO QHS pain 08/21/23 insulin aspart U-100 100 unit/mL (3 mL) subcutaneous pen 2 unit subcut TID dm 08/21/23 insulin glargine 100 unit/mL (3 mL) subcutaneous pen (Lantus Solostar U-100 Insulin) 6 unit subcut QHS dm 08/21/23 ipratropium 0.5 mg-albuterol 3 mg (2.5 mg base)/3 mL nebulization soln 3 ml inhalation Q4H PRN shortness of breath or wheezing 08/21/23 midodrine 2.5 mg tablet 2.5 mg PO TID low bp 08/21/23 multivitamin-iron sulfate 15 mg-folic acid 400 mcg tablet (Tab-A-Betsy Multivitamin w-iron) 1 tab PO DAILY vitamin 08/21/23 pantoprazole 20 mg tablet,delayed release 20 mg PO DAILY gerd 08/21/23 torsemide 10 mg tablet 20 mg PO DAILY htn 08/21/23 Hospital Course Operations None Procedures EKG and - (Chest x-ray/CT chest abdomen and pelvis) Summary of Care Provided Minutes Spent on Discharge: 37 Hospital Course: Mr. Hinojosa is an 87-year-old white male who presented to the emergency department [facility] on 08/21/2023 due to lethargy. He was at a nursing facility and they noted him to be more lethargic than his baseline so he was brought to the emergency department. They also noted him to be more irritable, having intermittent shortness of breath and hypoxic at the nursing facility. His baseline orientation appears to be only to self. Vital signs on presentation showed a temperature of 37.4, respiratory was 24, heart rate was 83, blood pressure was 99/58 and oxygen saturations was 98% on room air. His CBC showed a leukocytosis with a white count of 17.8 and a left shift of 90% but was otherwise unremarkable. Coags were elevated however the patient is on apixaban at baseline. Chemistry panel showed slight hyponatremia with a serum BUN/creatinine above his baseline. Baseline serum creatinine appears to run between 2.1 and 2.5 and on presentation he was 3.19. He was also markedly hyperglycemic with a blood glucose of 528. Initial lactic acid was 3.3. LFTs are unremarkable. Chest x-ray showed mild cardiomegaly with central pulmonary venous congestion and bilateral hilar adenopathy. CT of the chest abdomen pelvis demonstrated multifocal groundglass and reticular opacities with interlobular septal thickening and right hilar lymphadenopathy, age-indeterminate L4 compression fracture and possible cystitis. His UA was not suggestive of infection. He was admitted to the medical floor with sepsis due to pneumonia and was volume resuscitated with 2 L of IV fluids and placed on broad-spectrum antibiotics with cultures pending. Upon arriving to the floor his sats were stable on room air so he was maintained on room air. His respiratory viral panel demonstrated rhinovirus. And sputum culture was negative so we discontinued IV antibiotics. I did initially place him on steroids as he was having some significant wheezing, however, he had marked issues with hyperglycemia so this was discontinued and he remained stable on room air. We did an ambulatory pulse ox prior to discharge and he was stable on room air both at rest and with exertion. He was able to be discharged back to the nursing facility on 08/24/2023 in stable condition. Discharge diagnoses: Sepsis secondary to viral pneumonia Rhinovirus infection Lactic acidosis-resolved Hypotension-resolved DAVID-resolved CKD stage IIIb Acute on chronic anemia-stabilized DM-2 Hyperglycemia due to steroids Toxic/metabolic encephalopathy-back to baseline COPD Chronic thrombocytopenia Neuropathy History of ischemic cardiomyopathy Hypertension Hyperlipidemia GERD Hypothyroidism PAF Dementia-type unknown Physical Exam Const alert, no apparent distress, average body habitus and well nourished Constitutional Narrative: Very pleasant, elderly, white male, sitting up in bed, watching television and eating breakfast, on room air, oriented to self only, appears comfortable and nontoxic General Appearance: cooperative, comfortable, well kempt and well developed Orientation / Consciousness: awake and oriented to person; Negative for oriented to place or oriented to time HEENT normocephalic, head/scalp atraumatic and moist oral mucous membranes HEENT Narrative: The patient is fair for age, Mallampati is 2, no thrush Eyes EOMs intact bilaterally and conjunctivae normal Eyes Narrative: No icterus Neck no lymphadenopathy and supple Neck Narrative: Trachea midline, no thyroid lodgment Resp normal respiratory effort, no retractions, no use of accessory muscles and clear to auscultation bilaterally Resp Narrative: Diminished with very few scattered end expiratory wheezes Auscultation: wheezes; Negative for rales or rhonchi Cardio regular rate, regular rhythm, S1 normal heart sound, S2 normal heart sound, no rub, no gallops and no clicks; Negative for no murmurs Cardio Narrative: 2 out of 6 systolic murmur loudest at right upper sternal border GI normal to inspection, nondistended, normoactive bowel sounds, soft to palpation and non-tender Extremity no clubbing, cyanosis or edema Extremity Narrative: Pedal pulses are 2+ Neuro moves all extremities and no focal motor deficits Neuro Narrative: Generalized weakness noted with no specific focal deficits Sensorium / Orientation: awake, alert and oriented to person; Negative for oriented to place or oriented to time Speech: speech normal Psych affect normal Psych Narrative: Pleasantly confused, eye contact is good, patient answers questions Weight / BMI Weight Weight: 82.7 kg Body Mass Index (BMI) 27.7 ABG / Lab / Microbiology Data 08/24/23 07:18 08/24/23 07:18 Laboratory: Laboratory Results - last 24 hr 08/23/23 16:19: POC Glucose 471 H* 08/23/23 16:39: Glucose 544 H* 08/23/23 18:21: POC Glucose 492 H* 08/23/23 20:25: POC Glucose 463 H* 08/23/23 21:56: POC Glucose 381 H 08/24/23 06:18: POC Glucose 114 H 08/24/23 07:18: WBC 12.1 H, RBC 3.28 L, Hgb 9.9 L, Hct 30.5 L, MCV 93.0, MCH 30.2, MCHC 32.5, RDW Std Deviation 49.1 H, RDW Coeff of Markie 14.6, Plt Count 153, MPV 11.5, Immature Gran % (Auto) 0.700, Neut % (Auto) 82.8 H, Lymph % (Auto) 11.0 L, [place] % (Auto) 5.1, Eos % (Auto) 0.2, Baso % (Auto) 0.2, Absolute Neuts (auto) 10.0 H, Absolute Lymphs (auto) 1.33, Nucleated RBC % 0, Sodium 141, Potassium 4.0, Chloride 111 H, Carbon Dioxide 25.0, Anion Gap 5, BUN 60 H, Creatinine 2.02 H, Estim Creat Clear Calc 25.40, Est GFR (MDRD) Af Amer 40 L, Est GFR (MDRD) Non-Af 33 L, BUN/Creatinine Ratio 29.7 H, Glucose 110 H, Calcium 8.9 08/24/23 10:15: POC Glucose 207 H Microbiology: Microbiology 08/21/23 17:28 Blood Culture (Wb) - Anticubital Right Blood Culture - Preliminary No growth in 48 hours. 08/21/23 17:25 Blood Culture (Wb) - Anticubital Left Blood Culture - Preliminary No growth in 48 hours. 08/22/23 03:30 Sputum, Expectorated/Coughed Gram Stain - Final 08/22/23 03:30 Sputum, Expectorated/Coughed Respiratory Culture - Final Presumptive C albicans 08/22/23 00:35 Mucosa - Nasopharyngeal Respiratory Panel (PCR) - Final Rhinovirus 08/21/23 16:47 Urine Catheter - Catheter Legionella Antigen - Final 08/21/23 16:47 Urine Catheter - Catheter Streptococcus pneumoniae Antigen (M - Final 08/21/23 16:45 Nasal Secretion SARS-CoV-2 & FLU Antigen (Rapid) - Final D/C Instructions Discharge Diet: 1800 Calorie Control Diet Meaningful Use Info Meaningful Use Diagnoses (Choose all that apply): None applicable Discharge Plan Admission Admit Date/Time: 08/21/23 20:35 Primary Reason for Your Visit: Lethargy Attending Provider: Charmaine Whaley Primary Care Provider: Vic Campbell Consulting Providers: Moises Sommers Discharge Orders/Prescriptions Prescriptions: Continued atenolol 25 mg tablet 12.5 mg PO DAILY aspirin 81 MG tablet 81 mg PO DAILY@1700 Patient Comments: heart health atorvastatin 80 MG tablet 20 mg PO QHS omeprazole 20 MG capsule 20 mg PO DAILY budesonide-formoterol 1 INHALER inhaler 2 puff inhalation BID Hold Instructions: Order Changed memantine 28 MG capsule,sprinkle,ER 24hr 28 mg PO DAILY levothyroxine 88 MCG tablet 88 mcg PO DAILY albuterol sulfate 90 mcg/actuation HFA aerosol inhaler 2 puff INHALATION Q4H PRN (Reason: shortness of breath or wheezing) Patient Comments: Inhale 2 Puffs as instructed every 4 hours as needed. albuterol sulfate 2.5 mg /3 mL (0.083 %) solution for nebulization 2.5 mg inhalation Q4H PRN (Reason: shortness of breath or wheezing) ascorbic acid (vitamin C) [Vitamin C] 500 mg tablet 0.5 g PO DAILY fluticasone furoate-vilanterol [Breo Ellipta] 100-25 mcg/dose blister with device 1 inh inhalation DAILY calcium citrate 200 mg (950 mg) tablet 200 mg PO DAILY cholecalciferol (vitamin D3) 50 mcg (2,000 unit) capsule 50 mcg PO DAILY Tab-A-Betsy Multivitamin w-iron 15 mg iron- 400 mcg tablet 1 tab PO DAILY Eliquis 2.5 mg tablet 2.5 mg PO Q12H Patient Comments: TAKE 1 TABLET BY MOUTH TWICE DAILY Farxiga 5 mg tablet 5 mg PO DAILY Patient Comments: Take 1 tablet by mouth daily with breakfast. gabapentin 300 mg capsule 300 mg PO QHS Patient Comments: Take 1 capsule by mouth daily at bedtime for 30 days. insulin glargine [Lantus Solostar U-100 Insulin] 100 unit/mL (3 mL) insulin pen 6 unit SUBCUT QHS Patient Comments: x ipratropium-albuterol 0.5 mg-3 mg(2.5 mg base)/3 mL solution for nebulization 3 ml inhalation Q4H PRN (Reason: shortness of breath or wheezing) midodrine 2.5 mg tablet 2.5 mg PO TID Patient Comments: TAKE 1 TABLET BY MOUTH THREE TIMES DAILY pantoprazole 20 mg tablet,delayed release (DR/EC) 20 mg PO DAILY Patient Comments: Take 1 tablet by mouth daily at 6 am. torsemide 10 mg tablet 20 mg PO DAILY insulin aspart U-100 100 unit/mL (3 mL) insulin pen 2 unit SUBCUT TID Patient Comments: Inject 2 units subcutaneously three times a day with breakafst, Lunch & dinner Rx Instructions: 2 units subcutaneously; Discontinued metformin 500 mg tablet 500 mg PO BID Hold Instructions: Order Changed semaglutide 0.25 mg or 0.5 mg(2 mg/1.5 mL) pen injector 0.5 mg subcut FR Hold Instructions: MD Ordered Patient Comments: INJECT 0.5mg SUBCUTANEOUSLY ONCE A WEEK DIRECTED for FOUR weeks then 1mg weekly THEREAFTER losartan 50 MG tablet 50 mg PO DAILY Hold Instructions: Order Changed Referrals / Follow Up: Vic Campbell MD [Primary Care Provider] - Within 2 Weeks Nata Palm DO [Med Staff - Shake Splitter] - Disposition Disposition (needs filled in before D/C Order can be placed): [facility] Facility Charges/Coding Visit Charges Inpatient E&M: 25513 SNF Disch >30 Min
--- NOTE | 2023-08-24 13:44 | TREXTCAR_ITS ---
Diet Diet Order/Speech Therapy: 08/21/23 21:45 Diet: Consistent Carb - Calorie Controlled Food consistency:: Regular Liquid Consistency:: Regular/Thin How many daily calories?: 2000 calorie Routine Orders/Code Status Suppository Type: Dulcolax 10mg O2 Frequency: PRN Keep PO Greater than or Equal to (%): 89 Routine Lab Work: CBC (As needed) and BMP (As needed) Code Status: DNRCC-A (No intubation) Wound(s) right knee: Wound Type: Abrasion Suggestions for Active Care Change Position every (hours): 2 Hours to sit in a chair: 2 Times a day to sit in chair: 3 Therapies Weight Bearing: Full weight bearing Physical Therapy: Eval and Treat Occupational Therapy: Eval and Treat Problem/Diagnosis (1) DAVID (acute kidney injury): Status: Acute Code(s): N17.9 - Acute kidney failure, unspecified (2) Acidosis, lactic: Status: Acute Code(s): E87.20 - Acidosis, unspecified (3) Pneumonia: Status: Acute Code(s): J18.9 - Pneumonia, unspecified organism (4) Sepsis: Status: Acute Code(s): A41.9 - Sepsis, unspecified organism (5) Rhinovirus infection: Status: Acute Code(s): B34.8 - Other viral infections of unspecified site (6) Acute hypotension: Status: Acute Code(s): I95.9 - Hypotension, unspecified (7) Leukocytosis: Status: Acute Code(s): D72.829 - Elevated white blood cell count, unspecified (8) Acute alteration in mental status: Status: Acute Code(s): R41.82 - Altered mental status, unspecified (9) Hyperglycemia: Status: Acute Code(s): R73.9 - Hyperglycemia, unspecified (10) Acute on chronic anemia: Status: Chronic Code(s): D64.9 - Anemia, unspecified Allergies/Procedures Done in Hospital Allergies Pork/Porcine Containing Products Allergy (Verified 08/21/23 16:15) PT UNSURE OF REACTION Procedures: EKG and - (Chest x-ray/CT chest abdomen and pelvis) Type of Care/Length of Stay Estimated LOS: Convalescent Care Less Than 30 days Type of Care Needed: Skilled Rehab Potential: Fair Prognosis: Fair Additional Orders/Day of Discharge Day of Discharge: 12/05/23 Discharge Plan Admission Admit Date/Time: 08/21/23 20:35 Primary Reason for Your Visit: Lethargy Attending Provider: Charmaine Whaley Primary Care Provider: Vic Campbell Consulting Providers: Moises Sommers Discharge Orders/Prescriptions Prescriptions: Continued atenolol 25 mg tablet 12.5 mg PO DAILY aspirin 81 MG tablet 81 mg PO DAILY@1700 Patient Comments: heart health atorvastatin 80 MG tablet 20 mg PO QHS omeprazole 20 MG capsule 20 mg PO DAILY budesonide-formoterol 1 INHALER inhaler 2 puff inhalation BID Hold Instructions: Order Changed memantine 28 MG capsule,sprinkle,ER 24hr 28 mg PO DAILY levothyroxine 88 MCG tablet 88 mcg PO DAILY albuterol sulfate 90 mcg/actuation HFA aerosol inhaler 2 puff INHALATION Q4H PRN (Reason: shortness of breath or wheezing) Patient Comments: Inhale 2 Puffs as instructed every 4 hours as needed. albuterol sulfate 2.5 mg /3 mL (0.083 %) solution for nebulization 2.5 mg inhalation Q4H PRN (Reason: shortness of breath or wheezing) ascorbic acid (vitamin C) [Vitamin C] 500 mg tablet 0.5 g PO DAILY fluticasone furoate-vilanterol [Breo Ellipta] 100-25 mcg/dose blister with device 1 inh inhalation DAILY calcium citrate 200 mg (950 mg) tablet 200 mg PO DAILY cholecalciferol (vitamin D3) 50 mcg (2,000 unit) capsule 50 mcg PO DAILY Tab-A-Betsy Multivitamin w-iron 15 mg iron- 400 mcg tablet 1 tab PO DAILY Eliquis 2.5 mg tablet 2.5 mg PO Q12H Patient Comments: TAKE 1 TABLET BY MOUTH TWICE DAILY Farxiga 5 mg tablet 5 mg PO DAILY Patient Comments: Take 1 tablet by mouth daily with breakfast. gabapentin 300 mg capsule 300 mg PO QHS Patient Comments: Take 1 capsule by mouth daily at bedtime for 30 days. insulin glargine [Lantus Solostar U-100 Insulin] 100 unit/mL (3 mL) insulin pen 6 unit SUBCUT QHS Patient Comments: x ipratropium-albuterol 0.5 mg-3 mg(2.5 mg base)/3 mL solution for nebulization 3 ml inhalation Q4H PRN (Reason: shortness of breath or wheezing) midodrine 2.5 mg tablet 2.5 mg PO TID Patient Comments: TAKE 1 TABLET BY MOUTH THREE TIMES DAILY pantoprazole 20 mg tablet,delayed release (DR/EC) 20 mg PO DAILY Patient Comments: Take 1 tablet by mouth daily at 6 am. torsemide 10 mg tablet 20 mg PO DAILY insulin aspart U-100 100 unit/mL (3 mL) insulin pen 2 unit SUBCUT TID Patient Comments: Inject 2 units subcutaneously three times a day with breakafst, Lunch & dinner Rx Instructions: 2 units subcutaneously; Discontinued metformin 500 mg tablet 500 mg PO BID Hold Instructions: Order Changed semaglutide 0.25 mg or 0.5 mg(2 mg/1.5 mL) pen injector 0.5 mg subcut FR Hold Instructions: MD Ordered Patient Comments: INJECT 0.5mg SUBCUTANEOUSLY ONCE A WEEK DIRECTED for FOUR weeks then 1mg weekly THEREAFTER losartan 50 MG tablet 50 mg PO DAILY Hold Instructions: Order Changed Referrals / Follow Up: Vic Campbell MD [Primary Care Provider] - Within 2 Weeks Nata Palm DO [Med Staff - [employer]] - Disposition Disposition (needs filled in before D/C Order can be placed): [facility]
[2023-08-24 13:54] LABS: Bedside Glucose 235 mg/dL (74-106)
--- NOTE | 2023-08-24 16:19 | CASEMGMT ---
Discharge Planning Discharge orders, signed med list, and transport time sent to [facility] via [facility]. [facility] will transport patient by cot at 6:30. Nursing and SW updated. was left for patients daughter, Ami. Moira Velarde, Discharge Planning Asst.
[2023-08-24] MEDS: Aspirin E.C. 81 MG Tablet PO (16:31)
--- NOTE | 2023-08-24 16:34 | CASEMGMT ---
Discharge Planning Covid results sent to [facility] via [email or web address]. Moira Velarde, Discharge Planning Asst.
[2023-08-24 16:50] LABS: Bedside Glucose 183 mg/dL (74-106)
[2023-08-24] MEDS: Atorvastatin Calcium 80 MG Tablet PO (21:14)
[2023-08-24] MEDS: Insulin Glargine-YFGN 100 UNIT/ML Pen 12 UNIT SC (21:15)
[2023-08-24 21:35] LABS: Bedside Glucose 111 mg/dL (74-106)
== END 2023-08-24 23:27 | disposition skilled nursing facility (03) | DRG 871 ==
LOC: ED 20:41 → MS3 21:11
PROVIDERS: Nurse Practitioner; Emergency Provider Student in an Organized Health Care Education/Training Program; PCP Internal Medicine; Visit Provider Internal Medicine
DX: A41.9 Sepsis, unspecified organism (principal); G92.8 Other toxic encephalopathy; J12.9 Viral pneumonia, unspecified; E87.20 Acidosis, unspecified; E87.1 Hypo-osmolality and hyponatremia; J44.0 Chronic obstructive pulmonary disease with (acute) lower respiratory infection; N17.9 Acute kidney failure, unspecified; D69.6 Thrombocytopenia, unspecified; E11.22 Type 2 diabetes mellitus with diabetic chronic kidney disease; F03.90 Unspecified dementia, unspecified severity, without behavioral disturbance, psychotic disturbance, mood disturbance, and anxiety; N18.32 Chronic kidney disease, stage 3b; E11.65 Type 2 diabetes mellitus with hyperglycemia; Z79.4 Long term (current) use of insulin; I48.0 Paroxysmal atrial fibrillation; E11.40 Type 2 diabetes mellitus with diabetic neuropathy, unspecified; I12.9 Hypertensive chronic kidney disease with stage 1 through stage 4 chronic kidney disease, or unspecified chronic kidney disease; E03.9 Hypothyroidism, unspecified; D64.9 Anemia, unspecified; K21.9 Gastro-esophageal reflux disease without esophagitis; I25.10 Atherosclerotic heart disease of native coronary artery without angina pectoris; E78.5 Hyperlipidemia, unspecified; I25.5 Ischemic cardiomyopathy; Z79.82 Long term (current) use of aspirin; Z95.5 Presence of coronary angioplasty implant and graft; Z87.891 Personal history of nicotine dependence; Z66 Do not resuscitate; Z82.3 Family history of stroke; Z79.01 Long term (current) use of anticoagulants; B34.8 Other viral infections of unspecified site; Z79.52 Long term (current) use of systemic steroids
CPT/HCPCS: 36415; 71045; 71250; 74176; 80048; 80053; 81001; 82009; 82947; 82962; 83605; 85025; 85610; 87040; 87070; 87205; 87426; 87428; 87449; 87633; 93005; 94640; 94668; 94762; 97162; 97165; 97535; 99285; J7030; J7040; J7050; A4216; J0295; J0696

== ENCOUNTER → 2023-09-08 | Outpatient (REF) | payer MEDICARE, MEDICAID, SELFPAY ==
[2023-09-08 07:42] LABS: Absolute Lymphocyte Count 1.85 X10^3/uL (0.83-4.51); Absolute Neutrophil Count 2.7 X10^3/uL (2.0-7.7); Basophil# 0.05 X10^3/uL; Basophil% 0.9 % (0-1); Eosinophil# 0.44 X10^3/uL; Eosinophils% 7.9 % (0-5); Hematocrit 31.5 % (40-54); Hemoglobin 9.9 g/dL (13.0-16.5); Lymphocyte # 1.85 X10^3/ul (0.83-4.51); Lymphocyte % 33.3 % (19-41); Mean Corp Hgb Conc 31.4 g/dL (32-36); Mean Corpuscular Hgb 30.9 pg (27.0-32.0); Mean Corpuscular Volume 98.4 fL (80-94); Mean Platelet Vol. 11.7 fl (6.2-12.0); Monocyte# 0.46 X10^3/uL; Monocyte% 8.3 % (0-10); NRBC Flagged by Analyzer 0 % (0-5); Neutrophil # 2.72 X10^3/uL (2.7-7.7); Neutrophil % 48.9 % (47-70); Platelet Count 147 K/mm3 (150-450); RBC Distribution Width CV 15.6 % (11.6-14.6); RBC Distribution Width SD 55.6 fl (35.1-43.9); White Blood Count 5.6 K/mm3 (4.4-11.0)
[2023-09-08 08:08] LABS: Anion Gap 5 (5-15); BUN 50 mg/dL (7-18); Calcium,Total 8.7 mg/dL (8.5-10.1); Chloride 110 mmol/L (98-107); Creatinine, Serum 2.38 mg/dL (0.70-1.30); EST Glomerular Filtration Rate 28 mL/min (>60); Est Glom Filt Rate - Afr Amer 33 mL/min (>60); Glucose 131 mg/dL (74-106); Potassium 3.9 mmol/L (3.5-5.1); Sodium Level 143 mmol/L (136-145)
== END ==
LOC: OLS.WHLTCC 05:00
PROVIDERS: PCP Internal Medicine; Visit Provider Internal Medicine
DX: N17.9 Acute kidney failure, unspecified (principal); A41.9 Sepsis, unspecified organism; J18.9 Pneumonia, unspecified organism
CPT/HCPCS: 36415; 80048; 85025

== ENCOUNTER → 2023-09-15 | Outpatient (REF) | payer MEDICARE, MEDICAID, SELFPAY ==
[2023-09-15 08:49] LABS: Absolute Lymphocyte Count 2.36 X10^3/uL (0.83-4.51); Absolute Neutrophil Count 3.2 X10^3/uL (2.0-7.7); Basophil# 0.04 X10^3/uL; Basophil% 0.6 % (0-1); Eosinophil# 0.47 X10^3/uL; Eosinophils% 7.1 % (0-5); Hematocrit 31.5 % (40-54); Hemoglobin 9.8 g/dL (13.0-16.5); Lymphocyte # 2.36 X10^3/ul (0.83-4.51); Lymphocyte % 35.4 % (19-41); Mean Corp Hgb Conc 31.1 g/dL (32-36); Mean Corpuscular Hgb 30.6 pg (27.0-32.0); Mean Corpuscular Volume 98.4 fL (80-94); Mean Platelet Vol. 12.2 fl (6.2-12.0); Monocyte# 0.53 X10^3/uL; NRBC Flagged by Analyzer 0 % (0-5); Neutrophil # 3.23 X10^3/uL (2.7-7.7); Neutrophil % 48.4 % (47-70); Platelet Count 121 K/mm3 (150-450); RBC Distribution Width CV 15.7 % (11.6-14.6); RBC Distribution Width SD 55.8 fl (35.1-43.9); White Blood Count 6.7 K/mm3 (4.4-11.0)
[2023-09-15 08:52] LABS: Anion Gap 3 (5-15); BUN 59 mg/dL (7-18); BUN/Creat Ratio 22.2 RATIO (10-20); Calcium,Total 8.9 mg/dL (8.5-10.1); Chloride 109 mmol/L (98-107); Creatinine, Serum 2.66 mg/dL (0.70-1.30); EST Glomerular Filtration Rate 24 mL/min (>60); Est Glom Filt Rate - Afr Amer 29 mL/min (>60); Glucose 132 mg/dL (74-106); Sodium Level 143 mmol/L (136-145)
== END ==
LOC: OLS.WHLTCC 05:45
PROVIDERS: PCP Internal Medicine; Visit Provider Internal Medicine
DX: N17.9 Acute kidney failure, unspecified (principal); A41.9 Sepsis, unspecified organism; J18.9 Pneumonia, unspecified organism
CPT/HCPCS: 36415; 80048; 85025

== ENCOUNTER → 2023-09-22 | Outpatient (REF) | payer MEDICARE, MEDICAID, SELFPAY ==
[2023-09-22 10:01] LABS: Absolute Lymphocyte Count 1.64 X10^3/uL (0.83-4.51); Absolute Neutrophil Count 2.9 X10^3/uL (2.0-7.7); Basophil# 0.03 X10^3/uL; Basophil% 0.6 % (0-1); Eosinophil# 0.26 X10^3/uL; Eosinophils% 4.9 % (0-5); Hematocrit 30.6 % (40-54); Hemoglobin 9.7 g/dL (13.0-16.5); Lymphocyte # 1.64 X10^3/ul (0.83-4.51); Mean Corp Hgb Conc 31.7 g/dL (32-36); Mean Corpuscular Hgb 31.2 pg (27.0-32.0); Mean Corpuscular Volume 98.4 fL (80-94); Mean Platelet Vol. 12.3 fl (6.2-12.0); Monocyte# 0.46 X10^3/uL; Monocyte% 8.7 % (0-10); NRBC Flagged by Analyzer 0 % (0-5); Neutrophil # 2.88 X10^3/uL (2.7-7.7); Neutrophil % 54.4 % (47-70); Platelet Count 120 K/mm3 (150-450); RBC Distribution Width CV 15.6 % (11.6-14.6); RBC Distribution Width SD 55.6 fl (35.1-43.9); Red Blood Count 3.11 M/mm3 (4.6-6.2); White Blood Count 5.3 K/mm3 (4.4-11.0)
[2023-09-22 12:21] LABS: Anion Gap 10 (5-15); BUN 56 mg/dL (7-18); BUN/Creat Ratio 22.2 RATIO (10-20); Calcium,Total 8.5 mg/dL (8.5-10.1); Chloride 110 mmol/L (98-107); Creatinine, Serum 2.52 mg/dL (0.70-1.30); EST Glomerular Filtration Rate 26 mL/min (>60); Est Glom Filt Rate - Afr Amer 31 mL/min (>60); Glucose 157 mg/dL (74-106); Potassium 3.9 mmol/L (3.5-5.1); Sodium Level 146 mmol/L (136-145)
== END ==
LOC: OLS.WHLCAR 05:00
PROVIDERS: PCP Internal Medicine; Visit Provider Internal Medicine
DX: N17.9 Acute kidney failure, unspecified (principal); A41.9 Sepsis, unspecified organism; J18.9 Pneumonia, unspecified organism
CPT/HCPCS: 36415; 80048; 85025

== ENCOUNTER → 2023-09-29 | Outpatient (REF) | payer MEDICARE, MEDICAID, SELFPAY ==
[2023-09-29 07:06] LABS: Absolute Lymphocyte Count 1.99 X10^3/uL (0.83-4.51); Absolute Neutrophil Count 3.4 X10^3/uL (2.0-7.7); Basophil# 0.04 X10^3/uL; Basophil% 0.7 % (0-1); Eosinophils% 3.3 % (0-5); Hematocrit 31.4 % (40-54); Hemoglobin 10.1 g/dL (13.0-16.5); Lymphocyte # 1.99 X10^3/ul (0.83-4.51); Lymphocyte % 32.6 % (19-41); Mean Corp Hgb Conc 32.2 g/dL (32-36); Mean Corpuscular Volume 96.3 fL (80-94); Mean Platelet Vol. 12.1 fl (6.2-12.0); Monocyte# 0.48 X10^3/uL; Monocyte% 7.9 % (0-10); NRBC Flagged by Analyzer 0 % (0-5); Neutrophil # 3.37 X10^3/uL (2.7-7.7); Platelet Count 129 K/mm3 (150-450); RBC Distribution Width SD 52.7 fl (35.1-43.9); Red Blood Count 3.26 M/mm3 (4.6-6.2); White Blood Count 6.1 K/mm3 (4.4-11.0)
[2023-09-29 07:35] LABS: Anion Gap 7 (5-15); BUN 56 mg/dL (7-18); BUN/Creat Ratio 22.3 RATIO (10-20); Chloride 110 mmol/L (98-107); Creatinine, Serum 2.51 mg/dL (0.70-1.30); EST Glomerular Filtration Rate 26 mL/min (>60); Est Glom Filt Rate - Afr Amer 31 mL/min (>60); Glucose 145 mg/dL (74-106); Potassium 3.8 mmol/L (3.5-5.1); Sodium Level 142 mmol/L (136-145)
== END ==
LOC: OLS.WHLCAR 04:00
PROVIDERS: PCP Internal Medicine; Referring Provider Internal Medicine; Visit Provider Internal Medicine
DX: N17.9 Acute kidney failure, unspecified (principal); A41.9 Sepsis, unspecified organism; J18.9 Pneumonia, unspecified organism
CPT/HCPCS: 36415; 80048; 85025